=== PATIENT | female | born 1965 | race African-American/Black ===

== ENCOUNTER 2018-02-06 15:54 | Inpatient (IN) | payer OTHER ==
[~2018-02-06] VITALS: Ht 167.6 cm; Wt 75.0 kg
--- NOTE | ~2018-02-06 | P ---
[facility] [place] [address] PROCEDURE REPORT Name: JAMA TERRELL Room #: 363-P [facility] IN ..#: [id number] Admission: 02/06/18 Attend Phys: Efrain Ronquillo MD Discharge: 02/21/18 Date of : 61 Report #: [id number] THIS REPORT FOR: //name// CC: Solis Ronquillo DATE OF SERVICE: 02/20/2018 BRIEF HISTORY: The patient is a 52-year-old woman with chronic kidney disease and multiple medical problems, who has had gastrointestinal bleeding. Bleeding scan suggested a possible source from the upper GI tract. In addition, she has recurrent solid food dysphagia. PREOPERATIVE DIAGNOSIS: Gastrointestinal bleeding and solid food dysphagia. POSTOPERATIVE DIAGNOSES: 1. Benign appearing, nonbleeding gastric ulcer associated with gastrostomy bumper. 2. Polypoid lesion of pylorus. 3. Solid food dysphagia. MEDICATIONS: Deep sedation with propofol per anesthesia. MEDICATIONS: MAC. SPECIMEN: Biopsies of polypoid lesion, pylorus. ESTIMATED BLOOD LOSS: 3 mL. PROCEDURE: EGD with biopsy and Pulliam dilation. FINDINGS: Prior to sedation, procedure of upper endoscopy was reviewed with the patient as well as potential risks and its complications. She indicates she understands and desires to proceed. DESCRIPTION OF PROCEDURE: The patient was in her ICU bed, was brought to the GI procedure room. She was in the supine position with her head and chest raised about 20 degrees. Subsequently, the Fuji video endoscope was inserted in the cervical esophagus under direct vision without difficulty. Examination of this organ through its entire length revealed normal esophageal mucosa. There is no evidence of blood or bleeding within the esophageal lumen. Squamocolumnar junction was unremarkable. She has a history of reflux disease and is on Prevacid, but there is no endoscopic evidence of esophagitis, nor was there evidence of Donis mucosa or hiatus hernia. She has had dysphagia. However, a stricture or mass was not seen in the esophagus. Scope was advanced in the [facility] [address] [place] [address] PROCEDURE REPORT Name: JAMA TERRELL Room #: 363-P [facility].#: [id number] Admission: 02/06/18 Attend Phys: Efrain Ronquillo MD Discharge: 02/21/18 Date of : 61 Report #: [id number] stomach, which was examined on end view as well as retroflexed views. There was some erythema in the antrum, but no ulcers or erosions were seen. No bleeding lesions were seen. Upon retroflexion, no abnormalities were seen. In the distal body of the stomach along the anterior wall, the indwelling gastrostomy tube was seen. The tube was pushed into the gastric lumen and so we could visualize under the internal retention disk and indeed she was found to have a small whitish nonbleeding ulcer without exposed vessel under the bumper. This is the potential source of bleeding. The pylorus was inspected and on the duodenal side, there was a sessile polypoid lesion about 5-7 mm. It was very difficult to see because of its location. It had smooth and benign appearance. It did not appear to ulcerated, but was difficult to see this entire lesion. Biopsies were obtained. The scope was advanced through the duodenal bulb, duodenal sweep and down about the third and fourth portion. The mucosa was unremarkable. No bleeding lesions or vascular ectasias were seen. At that point, the scope was slowly withdrawn and careful circumferential views confirmed the above findings. The patient tolerated the procedure well. DISPOSITION: The patient with GI bleeding and potential bleeding from her upper GI tract. She did have a small gastric ulcer under the retention disk of the gastrostomy tube. This may have been the potential source of bleeding. We will follow up on biopsies. Continue PPI at this point in time. We will advance diet. Based on what I see today, I think the likelihood of bleeding from this ulcer is low. <ELECTRONICALLY SIGNED> By: Ivan Pool MD 02/21/18 1605 1240 0412 Ivan Pool MD /nt
--- NOTE | ~2018-02-06 | HC ---
[facility] [address] CONSULTATION Name: JAMA TERRELL Room #: 243-P ADM IN M.R.#: [id number] Admission: 02/06/18 Attend Phys: Efrain Ronquillo MD Discharge: Date of : 61 Report #: [id number] THIS REPORT FOR: //name// CC: Solis Ronquillo REASON FOR CONSULTATION: I was asked to evaluate concerning sepsis. HISTORY OF PRESENT ILLNESS: The patient is a 52-year-old who transfers from [place] after her first dialysis run. She became hypotensive and unresponsive. EMS was called. She was found to have ____, but was minimally arousable. She had hypotension and was admitted then by EMS to the [facility] HERE <ELECTRONICALLY SIGNED> By: Raad Andrew MD 02/08/18 1005 1606 2338 Raad Andrew MD /nt
--- NOTE | ~2018-02-06 | HC ---
[facility] [place] [address] CONSULTATION Name: JAMA TERRELL Room #: 240-P [facility] IN .R.#: [id number] Admission: 02/06/18 Attend Phys: Efrain Ronquillo MD Discharge: Date of : 61 Report #: [id number] THIS REPORT FOR: //name// CC: Solis Ronquillo DATE OF SERVICE: 02/20/2018 PALLIATIVE CARE CONSULTATION REQUESTING PHYSICIAN: Dr. Hsu. CHIEF COMPLAINT: Severe sepsis. HISTORY OF PRESENT ILLNESS: The patient is a 52-year-old female with multiple medical conditions of concern at this time including end-stage renal disease, recently has started dialysis approximately 1 month ago per daughter. The patient has had several dialysis sessions; however, had had difficulty with many of them. She had hypotension, most recently was diagnosed with a Staph epidermidis sepsis. She has also had altered mental status apparently since October at which time she was seen at [facility]. She had reportedly received TPA at this time, but cannot see that she had actually had strokes, although it says that she has a past history of strokes in previous records. Daughter does not recall whether that event was a stroke itself. The patient has had poor attention level since this time. Since her last discharge from [facility], she was sent to [place] for approximately 2 days prior to readmission. She has had multiple admissions for hypoxic respiratory failure. She has a history of sarcoidosis. Additionally, she has had a history of what appears to be diastolic heart failure, restrictive disease, possibly also due to sarcoidosis. Also, dysphagia and has a PEG tube. The patient has also had significant anemia recurrently and required transfusions. In addition, she had EGD showing an ulceration underneath the inside of the PEG tube as well as a polyp in the stomach, which has been biopsied. The patient at this current point in time, appears extremely confused about the reason for her being here. She cannot tell me the name of the facility or the date or time. She denies particular pain at this point in time, denies shortness of breath, but does report that she is concerned about the congestion that she has in her chest. PAST MEDICAL HISTORY: History of SVT, peptic ulcer disease, anemia, end-stage renal disease, atrial fibrillation, chronic kidney disease, congestive heart failure, dysphagia, sarcoidosis, possible seizure disorder, multiple CVAs, status post TPA in October 2017. PAST SURGICAL HISTORY: PEG tube placement. She has a pacemaker as well. [facility] [address] [place] [address] CONSULTATION Name: JAMA TERRELL Room #: 240-P [facility] IN [facility].#: [id number] Admission: 02/06/18 Attend Phys: Efrain Ronquillo MD Discharge: Date of : 61 Report #: [id number] MEDICATIONS: Prior to arrival at [facility], the patient was on albuterol, allopurinol, vitamin C, aspirin, Lipitor, ferrous sulfate, fluocinonide, folic acid, Imdur, Prevacid, Reglan, metoprolol, propafenone, allopurinol. FAMILY HISTORY: Noncontributory. SOCIAL HISTORY: Daughter apparently has drawn up Txt[employer] paperwork, but this has not been signed by the patient. The patient also has a younger son whom she was living with previously. REVIEW OF SYSTEMS: Unable to obtain the majority of review of systems. She denies pain in general. Does report chest congestion, but difficult to obtain other review of systems at this time. PHYSICAL EXAMINATION: VITAL SIGNS: Includes temperature 37.2, pulse 105, respirations 21, blood pressure 145/92, 100% on room air. GENERAL: The patient is not alert. Her attention level is extremely poor. She was able to answer some questions, but very minimal. She is in no acute distress at this point in time. RESPIRATORY: Diffuse expiratory rales noted throughout lung cortes and diffuse rhonchi noted throughout lung cortes. CARDIOVASCULAR: She does have edema. Good dorsalis pedis pulses in bilateral legs. She does have good pulses radially bilaterally. HEART: Regular rate and rhythm currently. ABDOMEN: Soft, not particularly distended or tender to palpation. LABORATORY DATA: Include hemoglobin 7.6, white blood cells 17.1, platelets 127, creatinine 1.5. ASSESSMENT AND PLAN: 1. Acute on chronic hypoxic respiratory failure. Appreciate pulmonary recommendations, may be due to exacerbation of her sarcoidosis or pulmonary fibrosis. 2. Severe sepsis. Did discuss in light of recurrence with the patient's daughter, I spent approximately 40 minutes in discussion of advanced care planning. I explained the difference between outpatient hospice, inpatient hospice, [place] [facility] [place], long-term care, discussed home health as well, discussed extensively code status and the risks and benefits of ventilation or artificial ventilation as well as CPR. Did discuss plan of care going forward. The patient's daughter would like to pursue admission to [place]. She is considering the possibility of hospice in the future. Did discuss what that would entail including stopping dialysis. The patient's daughter is considering this at this time; however, she would like to start with [place] and possibility of [place] [facility] [place] versus long-term care nursing at discharge and [facility] [address] [place] [address] CONSULTATION Name: JAMA TERRELL Room #: 240-P [facility] IN [facility]#: [id number] Admission: 02/06/18 Attend Phys: Efrain Ronquillo MD Discharge: Date of : 61 Report #: [id number] that she may make a decision going forward. She was unable to make a decision with regards to code status at this time stating that she wanted everything done at this current point in time. 3. Sarcoidosis, possibly with exacerbation. Appreciate pulmonology recommendations and steroid dosage currently. 4. Delirium, appears to be severe. Unknown origin, present since October, possibly due to cerebrovascular accident. Unable to perform MRI due to pacemaker previously. It is also possible that this is delirium due to metabolic, infectious or drug origin; however, it carries a poor prognosis overall in addition to the other diagnoses, which was discussed with daughter at this time. 5. I will continue to follow with this case. I do not know if we will come to a decision during this hospitalization, may pursue further at [place] by primary doctor over there. Thank you very much for the consultation. By: 1534 00 Norbert Maldonado DO /nt
--- NOTE | ~2018-02-06 | EKG ---
[place] [address] [address] [facility] [place] [address] ELECTROCARDIOGRAM REPORT Name: JAMA TERRELL Room #: 202-P [facility] IN ..#: [id number] Admission: 02/06/18 Attend Phys: Efrain Ronquillo MD Discharge: Date of : 61 Report #: [id number] THIS REPORT FOR: //name// [facility] ED Test Date: 2018-02-06 Test Time: 16:18:14 Pat Name: JAMA TERRELL Department: Room: Gender: F Drafter Patent: REYNA : 1965 Requested By: Christina Stone Order Number: [id number] MD: Enmanuel Farmer Measurements Intervals Clarence Rate: 113 P: 0 IA: 58 QRS: 55 QRSD: 93 T: 41 QT: 408 QTc: 560 Interpretive Statements Sinus tachycardia Borderline ST depression, diffuse leads Prolonged QT interval Baseline wander in lead(s) V5 No previous ECG available for comparison Electronically Signed On 02-07-2018 8:54:01 CDT by Enmanuel Farmer [email or web address] <ELECTRONICALLY SIGNED> By: Enmanuel Farmer MD, [facility] 02/07/18 0854 1618 17 Enmanuel Farmer MD, [facility] /EPI
--- NOTE | ~2018-02-06 | 2DMMODE ---
[facility] [address] [place] [address] 2 D/M-MODE ECHOCARDIOGRAM Name: JAMA TERRELL Room #: 243-P [facility] IN ..#: [id number] Admission: 02/06/18 Attend Phys: Efrain Ronquillo MD Discharge: Date of : 61 Date of Service: 02/08/18 1025 Report #: [id number] THIS REPORT FOR: //name// APPROVED REPORT Study performed: 02/08/2018 08:13:20 EXAM: Comprehensive 2D, Doppler, and color-flow Echocardiogram Patient Location: Bedside Room #: 243 Status: routine BSA: 1.88 HR: 103 bpm BP: 105/69 mmHg Rhythm: NSR Other Information Study Quality: Adequate Technically limited study due to body habitus. Indications Atrial Fibrillation Syncope Cardiomyopathy SVT Hx: Pacemaker 2D Dimensions RVDd: 39.52 mm LVEF(%): 62.52 (>50%) IVSd: 7.49 (7-11mm) LVOT Diam: 18.27 (18-24mm) LVDd: 39.29 mm PWd: 8.13 (7-11mm) LVDs: 26.22 (25-40mm) Aortic Root: 25.61 mm IVC: 24.00 mm Altman's LVEF: 62.52 % Volumes Left Atrial Volume (Systole) Single Plane 4CH: 72.00 mL Single Plane 2CH: 35.90 mL LA ESV Index: 29.00 mL/m2 Aortic Valve AoV Peak Martínez.: 1.74 m/s AO Peak Gr.: 12.13 mmHg LVOT Max P.47 mmHg LVOT Max V: 1.27 m/s ANANYA Vmax: 1.91 cm2 [facility] [place] [address] 2 D/M-MODE ECHOCARDIOGRAM Name: JAMA TERRELL Deidre Room #: 243-P [facility] IN [facility]#: [id number] Admission: 02/06/18 Attend Phys: Efrain Ronquillo MD Discharge: Date of : 61 Date of Service: 02/08/18 1025 Report #: [id number] Pulmonary Valve PV Peak Martínez.: 1.78 m/s PV Peak Gr.: 10.44 mmHg Tricuspid Valve TR Peak Martínez.: 3.85 m/s RAP Estimate: 10.00 mmHg TR Peak Gr.: 59.42 mmHg PA Pressure: 69.00 mmHg Left Ventricle The left ventricle is normal size. There is normal left ventricular wall thickness. The left ventricular systolic function is normal. LVEF is 50 55% This study is not technically sufficient to allow evaluation of the LV diastolic function. Right Ventricle The right ventricle is normal size. The right ventricular systolic function is normal. Pacemaker lead is present in the right ventricle. Atria The left atrium size is normal. Right atrium is borderline dilated.Pacemaker lead is present in the right atrium. Question vegetation vs. calcification on pacemaker leads. Aortic Valve The Aortic valve is sclerotic. No aortic regurgitation is present. There is no aortic valvular stenosis. Mitral Valve There is mitral annular calcification. Moderate mitral regurgitation. No evidence of mitral valve stenosis. Tricuspid Valve The tricuspid valve is normal in structure. Wide open, severe tricuspid regurgitation. Estimated PAP 69 mmHg. Pulmonic Valve Pulmonic valve is grossly normal in structure. Mild to moderate pulmonic regurgitation. Great Vessels The aortic root is normal in size. IVC is dilated and collapses >50% with inspiration. Pericardium There is no pericardial effusion. [facility] [address] [place] [address] 2 D/M-MODE ECHOCARDIOGRAM Name: JAMA TERRELL Deidre Room #: 243-P [facility] IN ..#: [id number] Admission: 02/06/18 Attend Phys: Efrain Ronquillo MD Discharge: Date of : 61 Date of Service: 02/08/18 1025 Report #: [id number] <Conclusion> The left ventricle is normal size. LVEF is 50 55% This study is not technically sufficient to allow evaluation of the LV diastolic function. The right ventricle is normal size. Right atrium is borderline dilated.Pacemaker lead is present in the right atrium. Question vegetation vs. calcification on pacemaker leads. The Aortic valve is sclerotic. There is no aortic valvular stenosis. Moderate mitral regurgitation. Wide open, severe tricuspid regurgitation. Estimated PAP 69 mmHg. Mild to moderate pulmonic regurgitation. The aortic root is normal in size. IVC is dilated and collapses >50% with inspiration. There is no pericardial effusion. <ELECTRONICALLY SIGNED> By: Kelvin Patel MD, [facility] 02/08/18 1025 1025 1025 Kelvin Patel MD, FAC /INF
--- NOTE | ~2018-02-06 | HC ---
[facility] [address] CONSULTATION Name: JAMA TERRELL Room #: 243-P [facility] IN M.R.#: [id number] Admission: 02/06/18 Attend Phys: Efrain Ronquillo MD Discharge: Date of : 61 Report #: [id number] THIS REPORT FOR: //name// CC: Solis Ronquillo ADDENDUM TO PREVIOUS CONSULT THAT WAS CUT OFF. REASON FOR CONSULTATION: Evaluate regarding sepsis. HISTORY OF PRESENT ILLNESS: The patient is a 52-year-old, recently diagnosed with end-stage renal disease, on dialysis. Transferred from [facility] with hypotension and bradycardia. She was found to have a hemoglobin down to 6.4. She is having diarrhea with bright red blood per rectum. Developed further respiratory compromise and was transferred from CCU over to the ICU. She has now developed a Gram-positive bacteremia. There was suspicion of a central venous catheter infection. She also has a permanent pacemaker. She also has a diagnosis of sarcoidosis, but is not on any current corticosteroids for this. The patient was unable to give me any further details of her history. PAST MEDICAL HISTORY: End-stage renal disease, recently diagnosed at [facility]. Dysphagia, atrial fibrillation, anemia, hypertension, peptic ulcer disease, gastroesophageal reflux, congestive heart failure, hypothyroidism and sarcoidosis. ALLERGIES: CEFEPIME. Does tolerate penicillins. MEDICATIONS: As noted on her MAR, now on vancomycin and Zosyn. FAMILY HISTORY AND SOCIAL HISTORY: Otherwise not available. REVIEW OF SYSTEMS: As noted above with no nausea or vomiting. She has a right IJ dialysis catheter. Left chest permanent pacemaker. She has been hypoxic with loose cough, minimal sputum production. Does urinate some. She has indwelling Garza catheter. PHYSICAL EXAMINATION: VITAL SIGNS: She is currently afebrile, blood pressure is 104/90, pulse 105. She is now on ultrafiltration through the dialysis catheter. GENERAL: She was awake, but a poor historian. Mild abdominal discomfort. HEENT: Unremarkable. Nasal cannula oxygen at 4 liters. LUNGS: Coarse bilaterally. No consolidation. HEART: Regular, without appreciable murmur. ABDOMEN: Mild distention, diffusely tender, no hepatosplenomegaly or mass identified. Perianal ulcerations with minimal drainage. EXTREMITIES: Unremarkable. [address] [address] CONSULTATION Name: JAMA TERRELL Room #: 243-P [facility] IN .R.#: [id number] Admission: 02/06/18 Attend Phys: Efrain Ronquillo MD Discharge: Date of : 61 Report #: [id number] LABORATORY STUDIES: Sodium 135, potassium 4, bicarbonate 23, creatinine 1.9, alkaline phosphatase 453, AST 34, bilirubin 1.5, ALT 43, albumin of 1.5. Troponin negative. Lactate initially 4.3, now 1.2. Hemoglobin 7.5, WBC 6.2, platelet count 122,000. Differential, 87% segs, 8% lymphs, TSH 1.9. Folate greater than 40. Vitamin B12 of 2772. Procalcitonin greater than 200. Urinalysis, many rbc's, rare wbc's, few bacteria. Blood cultures, gram-positive cocci, 2/2 cultures from 02/06/2018. Stool cultures negative to date. C. difficile PCR is pending. Urine culture is pending. Sputum culture not collected. Chest x-ray, bilateral pulmonary infiltrates. CT of the abdomen, residual contrast in the kidneys and bladder from her previous CTA. Atelectasis versus pneumonitis involving the medial lower lung regions bilaterally. No other acute intra-abdominal processes identified. CT scan of the chest showed no evidence of pulmonary emboli. She had mildly prominent mediastinal nodes with extensive bilateral perihilar upper and lower lobe airspace infiltrate, edema versus pneumonia. IMPRESSION: A 52-year-old with complicated situation with sepsis, transient shock, respiratory compromise, bilateral infiltrates, renal failure, on dialysis; Gram-positive cocci bacteremia and bloody diarrhea. I am suspecting the bacteremia is related to her central venous catheter. Echocardiogram was done at the bedside as I was evaluating the patient. It appears that she does have a vegetation on the right atrial lead of her permanent pacemaker. RECOMMENDATIONS: We will continue with broad antibiotic coverage to cover her Gram-positive cocci bacteremia along with pulmonary infiltrates and her diarrhea. I would like to repeat her blood cultures. Change out her lines and remove the right IJ temporary dialysis catheter. I have discussed with Cardiovascular Medicine regarding her permanent pacemaker. This will be interrogated today and then we will decide on our treatment options regarding removal of the lead. She will be on stress dose steroids. Further decision regarding her sarcoidosis will be entertained. Await stool cultures and C. diff by PCR. If continued bloody stool, we will need endoscopy. <ELECTRONICALLY SIGNED> By: Raad Andrew MD 02/09/18 1201 1003 1759 Raad Andrew MD /nt
--- NOTE | ~2018-02-06 | HC ---
[facility] [place] [address] CONSULTATION Name: TERRELLJAMA Room #: 240-P [facility] IN .R.#: [id number] Admission: 02/06/18 Attend Phys: Efrain Ronquillo MD Discharge: Date of : 61 Report #: [id number] THIS REPORT FOR: //name// CC: Solis Ronquillo DATE OF SERVICE: 02/07/2018 REASON FOR CONSULTATION: History of chronic renal failure. HISTORY OF PRESENT ILLNESS: A 52-year-old patient presented to our hospital after a dialysis treatment at [facility] where she had been a patient for 4 days. Apparently, she is a relatively new dialysis start, developed hypotension and bradycardia post-dialysis, was transferred to our ER, given some fluid resuscitation, and admitted to the hospital. The patient is unable to give any meaningful history. She is arousable, but I cannot get further communication from her. 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 Apparently, the patient's attending physician is Dr. Juárez and we are trying to call him for further information. PAST MEDICAL HISTORY: Again, little is known, she apparently has renal failure, some sort of encephalopathic type of disease, history of heart failure, and sarcoidosis. MEDICATIONS: We do have a medication list from [facility] and this includes albuterol inhalers, allopurinol 100 mg per her PEG tube, ascorbic acid 500 mg, aspirin 81 mg, atorvastatin 40 mg, iron 300 mg, folic acid 1 a day, isosorbide dinitrate 10 mg 3 times a day, lansoprazole 30 mg daily, metoclopramide solution 5 mL before meals and bedtime, metoprolol tartrate 12.5 mg per tube twice a day, nystatin powder topical application, Shakira-Ely 1 daily, and propafenone 150 mg 3 times a day. FAMILY HISTORY: Unknown. SOCIAL HISTORY: Otherwise unknown. REVIEW OF SYSTEMS: Cannot be taken due to her mental status. PHYSICAL EXAMINATION: GENERAL: This is an ill-appearing patient, moving about without purpose at times, she is arousable, she has no purposeful movements. [facility] [address] [place] [address] CONSULTATION Name: JAMA TERRELL Room #: 240-P [facility] IN .R.#: [id number] Admission: 02/06/18 Attend Phys: Efrain Ronquillo MD Discharge: Date of : 61 Report #: [id number] SKIN: Relatively unremarkable, although her posterior is not examined at the current time. SKELETAL: Shows her to be obese and all 4 extremities intact. HEENT: Extraocular movements appear to be full. No scleral icterus. Hearing and vision difficult to determine. NECK: Supple. CHEST: Very coarse with rhonchi and some degree of noisy respirations. HEART: Regular, distant. ABDOMEN: Quiet and is quite tender to palpation with a little bit of guarding. EXTREMITIES: Show 1+ dependent edema. NEUROLOGIC: Again, not really communicative or answering questions. She opens her eyes and all 4 extremities seem to move. LABORATORY DATA: The pO2 only 47 on 2 liters nasal cannula. Hemoglobin is 6.4, white count 4.3. No manual differential was performed. Sodium 139, potassium 3.6, chloride 104, bicarbonate 25, BUN is 22, creatinine only 1.3. No phosphorus was measured. Transaminases are not elevated. Alk phos is elevated. Albumin is only 1.3. Chest x-ray shows diffuse infiltrates. ASSESSMENT: 1. Chronic kidney disease. She has a temporary dialysis catheter in and that is all she has. She apparently was given some IV fluids in the emergency room, the total amount of which are really cannot determine, at one point at least 3 liters were ordered, I believe she got at least 1 liter. Blood pressure is stabilized at the current time, but she does appear to be critically ill, possibly septic, possibly with a line infection. She has a temporary dialysis line in only. 2. Altered mental status, I am not sure how permanent this is, I cannot really contact anybody at this time, we will try to with Dr. Juárez. 3. Pulmonary infiltrates could be from sepsis, could be volume overload, I have no real information better heart function, she does carry a diagnosis of restrictive cardiomyopathy and sarcoidosis. 4. Sarcoidosis. I do not see steroids on her list of medications. <ELECTRONICALLY SIGNED> By: Kelvin Velásquez MD 02/20/18 1055 0809 1304 Kelvin Velásquez MD /nt
--- NOTE | ~2018-02-06 | HC ---
[facility] [place] [address] CONSULTATION Name: JAMA TERRELL Room #: 243-P [facility] IN ..#: [id number] Admission: 02/06/18 Attend Phys: Efrain Ronquillo MD Discharge: Date of : 61 Report #: [id number] THIS REPORT FOR: //name// CC: Solis Ronquillo DATE OF SERVICE: 02/07/2018 REFERRAL PHYSICIAN: Dr. Brandee Stone from the Emergency Department. REASON FOR REFERRAL: Acute hypoxic respiratory failure. HISTORY OF PRESENT ILLNESS: The patient is a 52-year-old female who was transferred to Emergency Room after being found to have lost consciousness. She was brought to the Emergency Room. She was found to be hypoxic. A pulmonary consultation was requested. The patient has extensive medical history including end-stage renal disease, sarcoidosis. She states that she is from [place]. She was hospitalized recently at [facility]. She was subsequently transferred to [facility] for ongoing care. The history is somewhat sketchy, but according to the records, she was undergoing dialysis that day. She did well. Shortly after, she was found to be unresponsive. A code blue was called. According to EMS, she did not receive CPR. She was initially found to be hypotensive, bradycardic. She did have spontaneous respiration. She was then brought to the Emergency Room. In the ER, systolic blood pressure was around 769 mmHg. She was somewhat somnolent. She was hypoxic. She was placed on O2. Chest x-ray was said to have perihilar infiltrates. To my review, it shows patchy bilateral infiltrates. For hypotension, she was given IV fluids with some improvement in blood pressure. She was felt to have pneumonia. She was admitted initially to the Critical Care Unit and subsequently transferred to ICU. At present, she is awake. She appears somewhat semi-somnolent. She appears weak. She denies any chest pain. She confirms a history of sarcoidosis, though she did not say that she was on chronic steroids. PAST MEDICAL HISTORY: According to the records include end-stage renal disease, encephalopathy, dysphagia, paroxysmal atrial fibrillation, chronic anemia, [facility] [address] [place] [address] CONSULTATION Name: NIDHIJAMA A Room #: 243-P [facility] IN ..#: [id number] Admission: 02/06/18 Attend Phys: Efrain Ronquillo MD Discharge: Date of : 61 Report #: [id number] hypertension, gastroesophageal reflux disease, peptic ulcer disease, history of osteoarthritis, hyperlipidemia, chronic combined heart failure, chronic respiratory failure on O2, restrictive cardiomyopathy, hypothyroidism, sarcoidosis. ALLERGIES: CEFEPIME, REACTIONS UNSPECIFIED. MEDICATIONS: List reviewed. This include nebulized albuterol, allopurinol, vitamin C, aspirin, Lipitor, iron sulfate, folic acid, DuoNeb, Isordil, lansoprazole, Reglan, Toprol, Nitrostat, MiraLax, propafenone, folic acid. PAST SURGICAL HISTORY: Unknown at this time. FAMILY HISTORY: Unknown. SOCIAL HISTORY: The patient apparently has never smoked, does not drink alcohol. She is from [place]. REVIEW OF SYSTEMS: Somewhat limited as the patient is not able to answer questions adequately at this time. PHYSICAL EXAMINATION: GENERAL: She is awake, appears somewhat weak and somnolent. VITAL SIGNS: Temperature is 97 degrees Fahrenheit, pulse is 14, respiratory rate is 20, blood pressure 120/50 mmHg, saturation 98%. HEENT: Unremarkable. NECK: Supple, without any lymphadenopathy or thyromegaly. CHEST: Breath sounds are fair with few scattered crackles. No obvious rales or wheezes heard anteriorly. CARDIOVASCULAR: Heart sounds are distant. Normal S1, S2. No murmurs or gallop. There is no JVD, no carotid bruit. Pulses are 2+/4+ bilaterally. BREASTS: Exam deferred. ABDOMEN: Mildly obese, soft, nontender, no organomegaly or masses felt. GENITOURINARY: Deferred. RECTAL: Deferred. EXTREMITIES: No cyanosis, clubbing or edema. LABORATORY DATA: Chest x-ray, CT chest angiogram reviewed. Chest x-ray shows patchy bilateral interstitial infiltrate, perihilar infiltrates noted in the left lung field, patchy linear infiltrates seen in the right upper lobe, right lower lobe along with cardiomegaly. CT chest angiogram shows no evidence of pulmonary embolus. Again, showing patchy bilateral infiltrates, bilateral perihilar enlargements, some nodular densities seen in the right lower lobe. Diffuse calcifications are noted in bilateral hilum along with mediastinal area. DATA: Sodium 138, potassium 2.6, chloride 102, CO2 of 25, BUN is 14, creatinine [address] [address] CONSULTATION Name: JAMA TERRELL Room #: 243-P ADM IN M.R.#: [id number] Admission: 02/06/18 Attend Phys: Efrain Ronquillo MD Discharge: Date of : 61 Report #: [id number] is 1.3. Liver function enzymes are notable for elevated alkaline phosphatase, otherwise unremarkable. WBC 5200, hemoglobin 7.9. No evidence of bandemia. Arterial blood gas revealed pH 7.38, pCO2 of 34, pO2 of 47 on 2 L of O2. Follow up hemoglobin this morning is 6.3, albumin is 1.3. IMPRESSION: 1. Transient hypotension, bradycardia in this 52-year-old female. This occurred apparently following hemodialysis. Suspect secondary to hypovolemia. In reviewing the records, patient also was shown to be febrile with temperature of 102 degrees Fahrenheit. Cannot rule out infectious processes including severe sepsis. Note that, hemoglobin is now low, is now gradually trending downward to now 6. According to the patient, she has a history of peptic ulcer disease along with GI bleed. Cannot rule out recurrent bleed. 2. Acute on chronic hypoxic respiratory failure. The patient appeared to have history of sarcoidosis. Specifics of the sarcoidosis is unknown at this time. Suspect that she has had it for some time. Radiographic changes are consistent with sarcoidosis. It does not appear that the patient has pulmonary edema as previously thought. With abnormal chest x-ray, cannot rule out pneumonia. 3. Sarcoidosis as mentioned above. We will request records for further review. It appears the patient is not on chronic steroids. I do not think she has an acute exacerbation of sarcoidosis at this time. 4. Hypotension. As mentioned above likely due to volume depletion, anemia. Possible severe sepsis. 5. Febrile illness, possible infectious process. As mentioned above, cannot rule out pneumonia. We will need to consider nosocomial infections. Other considerations include urinary tract. 6. History of chronic anemia, now with a downward trend. As mentioned above, rule out gastrointestinal bleed. 7. History of chronic kidney disease, apparent requirement of hemodialysis according to the history. Creatinine is 1.3. She makes some urine. Renal has been consulted. 8. Hypoglycemia. May be related to severe sepsis. 9. Hyponatremia, hypokalemia due to chronic kidney disease. 10. Recent history of encephalopathy, metabolic. 11. Paroxysmal atrial fibrillation. 12. Gastroesophageal reflux disease. 13. History of peptic ulcer disease with gastrointestinal bleed. 14. Hyperlipidemia. 15. Combined chronic heart failure. 16. Restrictive cardiomyopathy. 17. Hypothyroidism. 18. Generalized debility due to severe multicomorbid conditions. 19. Protein-calorie malnutrition, severe. RECOMMENDATION: Agree with broad spectrum antibiotics, O2 to keep saturation [facility] [address] [place] [address] CONSULTATION Name: JAMA TERRELL Room #: [facility] IN M.R.#: [id number] Admission: 02/06/18 Attend Phys: Efrain Ronquillo MD Discharge: Date of : 61 Report #: [id number] 90%. DVT and GI prophylaxis will be addressed. SCDs will be used instead of heparin product given anemia. In terms of volume overload, my review of the chest x-ray does not suggest pulmonary edema, but rather chronic infiltrates due to sarcoidosis. Plan is for CRRT is noted. If patient becomes hypotensive, would consider not taking too much fluid off at this time. I have requested records from the other facilities for review. I do not think the patient had been on chronic steroids for sarcoidosis, but will need to monitor hypotension. She may be adrenally insufficient. Hydrocortisone will be recommended if hypotension continues to be a problem or worsens. Thank you for this consultation. <ELECTRONICALLY SIGNED> By: Sathish Deluca MD 02/09/18 1152 1250 [id number] Sathish Deluca MD /nt
[2018-02-06 16:00] VITALS: BP 112/45
[2018-02-06 16:44] LABS: ABSOLUTE NEUTROPHILS 4.5 thou/uL (1.4-8.2); BASOPHILS 0.2 % (0.0-2.0); EOSINOPHILS 0.2 % (0.0-3.0); HEMOGLOBIN 7.9 gm/dL (12.0-15.0); LYMPHOCYTES 7.9 % (24.0-44.0); MCH 29.1 pg (26.0-34.0); MCHC 32.9 g/dL (28.0-37.0); MCV 88.5 fL (80.0-100.0); MONOCYTES 5.2 % (1.0-8.0); PLATELET COUNT 138 thou/uL (150-400); POLYS 86.5 % (36.0-66.0); RBC 2.71 mil/uL (4.20-5.00); RDW 18.3 % (10.5-14.5); WBC 5.2 thou/uL (4.0-11.0)
[2018-02-06 16:52] LABS: ANION GAP 11 mmol/L (7-16); BUN 14 mg/dL (7-18); CALCIUM 8.5 mg/dL (8.5-10.1); CHLORIDE 102 mmol/L (98-107); CO2 25 mmol/L (21-32); CREATININE 1.3 mg/dL (0.6-1.0); GLUCOSE 109 mg/dL (74-106); SODIUM 138 mmol/L (136-145)
[2018-02-06 16:53] LABS: POTASSIUM 2.6 mmol/L (3.5-5.1)
[2018-02-06 17:00] LABS: BE(vivo) -4.5 mmol/L (-2 to +3); PCO2 34.5 mmHg (35.0-45.0); sO2 82.8 % (92.0-98.0)
[2018-02-06 17:02] LABS: PO2 47.2 mmHg (80.0-100.0)
[2018-02-06 17:02] LABS: TROPONIN-I < 0.04 ng/mL (<0.06)
[2018-02-06 18:15] VITALS: BP 112/45
[2018-02-06 19:33] VITALS: BP 102/61
[2018-02-06] MEDS ORDERED: ALBUTEROL2.5 MG/31 INH (19:50)
[2018-02-06] MEDS ORDERED: VITAMINC500 PER TUBE (19:51)
[2018-02-06] MEDS ORDERED: ASPIR 8181 MG PER TUBE (19:51)
[2018-02-06] MEDS ORDERED: ALLOPURINOL 10100 M1 PER TUBE (19:51)
[2018-02-06] MEDS ORDERED: ATORVASTATIN CA40 MG PO (19:52)
[2018-02-06] MEDS ORDERED: IRON325 PER TUBE (19:53)
[2018-02-06] MEDS ORDERED: DUONEB 2.5-0.5 M3 ML INH (19:55)
[2018-02-06] MEDS ORDERED: [UNRECOGNIZED DRUG - OTHER] TOP (19:55)
[2018-02-06] MEDS ORDERED: FOLIC ACID1 MG PER TUBE (19:55)
[2018-02-06] MEDS ORDERED: ISORDIL10 MG PER TUBE (19:56)
[2018-02-06] MEDS ORDERED: LANSOPRAZOLE30 M2 PER TUBE (19:57)
[2018-02-06 20:19] VITALS: BP 144/99
[2018-02-06] MEDS ORDERED: LOPRESSOR25 PER TUBE (20:29)
[2018-02-06] MEDS ORDERED: NITROGLYCERIN0.4 MG SUBLING (20:29)
[2018-02-06] MEDS ORDERED: METOCLOPRAM5 MG/5 M2 PER TUBE (20:29)
[2018-02-06] MEDS ORDERED: NYAMYC15 GM TOP (20:30)
[2018-02-06] MEDS ORDERED: MIRALAX17 GM PER TUBE (20:31)
[2018-02-06] MEDS ORDERED: AKWA TEARS EYE15 ML OPHTHALMIC (20:31)
[2018-02-06] MEDS ORDERED: PROPAFENONE 15150 MG PER TUBE (20:32)
[2018-02-06] MEDS ORDERED: RENA-VITE TABL0.8 MG PER TUBE (20:32)
[2018-02-06] MEDS ORDERED: ALLOPURINOL 10100 M2 PER TUBE (20:33)
[2018-02-06 21:38] VITALS: BP 109/49
[2018-02-06 23:08] VITALS: BP 96/41
[2018-02-07] VITALS (37 sets, daily range): BP systolic 78–196; BP diastolic 45–185
[2018-02-07 02:16] LABS: WBC 4.3 thou/uL (4.0-11.0)
[2018-02-07 02:18] LABS: MCH 29.4 pg (26.0-34.0); MCHC 33.8 g/dL (28.0-37.0); RBC 2.16 mil/uL (4.20-5.00); RDW 17.6 % (10.5-14.5)
[2018-02-07 02:21] LABS: HEMATOCRIT 18.8 % (37.0-47.0); HEMOGLOBIN 6.4 gm/dL (12.0-15.0)
[2018-02-07 02:37] LABS: ALBUMIN 1.3 g/dL (3.4-5.0); ANION GAP 10 mmol/L (7-16); BUN 22 mg/dL (7-18); CALCIUM 7.6 mg/dL (8.5-10.1); CHLORIDE 104 mmol/L (98-107); CO2 25 mmol/L (21-32); CREATININE 1.3 mg/dL (0.6-1.0); GLUCOSE 74 mg/dL (74-106); SGOT 34 U/L (15-37); SGPT 43 U/L (30-65); SODIUM 139 mmol/L (136-145); TOTAL BILIRUBIN 1.5 mg/dL (<0.1-1.0); TOTAL PROTEIN 5.6 g/dL (6.4-8.2); TROPONIN-I < 0.04 ng/mL (<0.06)
[2018-02-07 02:38] LABS: POTASSIUM 2.7 mmol/L (3.5-5.1)
[2018-02-07 12:02] LABS: HEMOGLOBIN 6.3 gm/dL (12.0-15.0)
[2018-02-07 12:03] LABS: HEMATOCRIT 18.1 % (37.0-47.0)
[2018-02-07 12:22] LABS: CALCIUM 7.7 mg/dL (8.5-10.1); CREATININE 1.7 mg/dL (0.6-1.0); POTASSIUM 3.3 mmol/L (3.5-5.1)
[2018-02-07 13:39] LABS: URINE BILIRUBIN NEGATIVE (Negative); URINE BLOOD 3+ (Negative); URINE CLARITY CLEAR; URINE COLOR YELLOW; URINE GLUCOSE-RANDOM* NEGATIVE (Negative); URINE KETONES NEGATIVE (Negative); URINE NITRITE-REFLEX NEGATIVE (Negative); URINE PROTEIN (DIPSTICK) 1+ (Negative); URINE SPECIFIC GRAVITY <= 1.005 (1.005-1.035); URINE UROBILINOGEN 0.2 E.U./dl (0.2-1.0)
[2018-02-07 13:46] LABS: URINE LEUKOCYTES-REFLEX TRACE (Negative)
[2018-02-07 14:17] LABS: CASTS None Seen /LPF (None Seen); SQUAMOUS 4-10 Moderate /LPF (0-3); URINE RBC >20 Many /HPF (0-2)
[2018-02-07 14:18] LABS: BACTERIA-REFLEX 1-9 Few /HPF (None Seen); CRYSTALS None Seen /LPF (None Seen); URINE WBC-REFLEX 0-5 Rare /HPF (0-5)
[2018-02-07 15:28] LABS: HEMOGLOBIN 7.7 gm/dL (12.0-15.0)
[2018-02-07 21:18] LABS: HEMATOCRIT 21.8 % (37.0-47.0); HEMOGLOBIN 7.5 gm/dL (12.0-15.0)
[2018-02-07 21:28] LABS: MAGNESIUM 1.6 mg/dL (1.8-2.4); POTASSIUM 3.4 mmol/L (3.5-5.1)
[2018-02-08] VITALS (34 sets, daily range): BP systolic 83–134; BP diastolic 45–90
[2018-02-08 03:15] LABS: HEMATOCRIT 22.6 % (37.0-47.0); HEMOGLOBIN 7.7 gm/dL (12.0-15.0)
[2018-02-08 05:23] LABS: ABSOLUTE NEUTROPHILS 5.4 thou/uL (1.4-8.2); BASOPHILS 0.2 % (0.0-2.0); EOSINOPHILS 0.3 % (0.0-3.0); HEMATOCRIT 21.5 % (37.0-47.0); HEMOGLOBIN 7.5 gm/dL (12.0-15.0); LYMPHOCYTES 8.7 % (24.0-44.0); MCH 30.1 pg (26.0-34.0); MCHC 35.1 g/dL (28.0-37.0); MCV 85.9 fL (80.0-100.0); MONOCYTES 3.8 % (1.0-8.0); PLATELET COUNT 122 thou/uL (150-400); WBC 6.2 thou/uL (4.0-11.0)
[2018-02-08 05:33] LABS: ALBUMIN 1.5 g/dL (3.4-5.0); CALCIUM 7.5 mg/dL (8.5-10.1); CREATININE 1.9 mg/dL (0.6-1.0); PHOSPHORUS 1.2 mg/dL (2.5-4.9); POTASSIUM 4.4 mmol/L (3.5-5.1)
[2018-02-08 06:46] LABS: TSH 1.933 uIU/mL (0.358-3.740)
[2018-02-08 07:24] LABS: FOLIC ACID > 40.0 ng/mL (8.6-58.9)
[2018-02-08 10:50] LABS: HEMATOCRIT 22.2 % (37.0-47.0); HEMOGLOBIN 7.8 gm/dL (12.0-15.0)
[2018-02-08 11:09] LABS: HEPATITIS B SURFACE AG Negative (Negative)
[2018-02-08 17:32] LABS: HEMATOCRIT 21.9 % (37.0-47.0); HEMOGLOBIN 7.6 gm/dL (12.0-15.0)
[2018-02-08 22:34] LABS: HEMATOCRIT 21.2 % (37.0-47.0); HEMOGLOBIN 7.4 gm/dL (12.0-15.0)
[2018-02-09] VITALS (26 sets, daily range): BP systolic 94–129; BP diastolic 53–95
[2018-02-09 05:42] LABS: ABSOLUTE NEUTROPHILS 4.9 thou/uL (1.4-8.2); BASOPHILS 0.3 % (0.0-2.0); EOSINOPHILS 0.2 % (0.0-3.0); LYMPHOCYTES 8.1 % (24.0-44.0); MCH 30.1 pg (26.0-34.0); MCHC 34.8 g/dL (28.0-37.0); MCV 86.3 fL (80.0-100.0); MONOCYTES 5.9 % (1.0-8.0); PLATELET COUNT 108 thou/uL (150-400); POLYS 85.5 % (36.0-66.0); RBC 2.32 mil/uL (4.20-5.00); RDW 17.2 % (10.5-14.5); WBC 5.7 thou/uL (4.0-11.0)
[2018-02-09 05:56] LABS: ALBUMIN 1.6 g/dL (3.4-5.0); CALCIUM 7.1 mg/dL (8.5-10.1); CREATININE 2.5 mg/dL (0.6-1.0); POTASSIUM 3.7 mmol/L (3.5-5.1)
[2018-02-09 09:55] LABS: HEMATOCRIT 20.7 % (37.0-47.0); HEMOGLOBIN 7.1 gm/dL (12.0-15.0)
[2018-02-09 10:09] LABS: ALBUMIN 1.8 g/dL (3.4-5.0); CREATININE 2.7 mg/dL (0.6-1.0); DIRECT BILIRUBIN 1.1 mg/dL (<0.1-0.3); POTASSIUM 3.6 mmol/L (3.5-5.1); TOTAL BILIRUBIN 1.3 mg/dL (<0.1-1.0); TOTAL PROTEIN 6.5 g/dL (6.4-8.2)
[2018-02-09 20:07] LABS: HSV 1 DNA Negative (Negative); HSV 2 DNA Positive (Negative)
[2018-02-10] VITALS (41 sets, daily range): BP systolic 84–136; BP diastolic 34–102
[2018-02-10 06:19] LABS: HEMOGLOBIN 6.5 gm/dL (12.0-15.0); MCH 29.6 pg (26.0-34.0); RBC 2.2 mil/uL (4.20-5.00)
[2018-02-10 06:21] LABS: MCHC 33.5 g/dL (28.0-37.0); MCV 88.3 fL (80.0-100.0); RDW 17.6 % (10.5-14.5); WBC 5.7 thou/uL (4.0-11.0)
[2018-02-10 06:30] LABS: HEMATOCRIT 19.4 % (37.0-47.0)
[2018-02-10 06:31] LABS: ALBUMIN 1.8 g/dL (3.4-5.0); CALCIUM 7.2 mg/dL (8.5-10.1); CREATININE 3.1 mg/dL (0.6-1.0); PHOSPHORUS 3.2 mg/dL (2.5-4.9); POTASSIUM 3.5 mmol/L (3.5-5.1)
[2018-02-11] VITALS (24 sets, daily range): BP systolic 91–124; BP diastolic 54–97
[2018-02-11 05:21] LABS: HEMATOCRIT 21.4 % (37.0-47.0); HEMOGLOBIN 7.5 gm/dL (12.0-15.0); MCH 30.3 pg (26.0-34.0); MCHC 35.1 g/dL (28.0-37.0); MCV 86.3 fL (80.0-100.0); RBC 2.48 mil/uL (4.20-5.00); RDW 16.2 % (10.5-14.5); WBC 6.8 thou/uL (4.0-11.0)
[2018-02-11 05:37] LABS: ALBUMIN 1.8 g/dL (3.4-5.0); CALCIUM 7.9 mg/dL (8.5-10.1); PHOSPHORUS 1.3 mg/dL (2.5-4.9)
[2018-02-11 05:38] LABS: CREATININE 1.8 mg/dL (0.6-1.0)
[2018-02-11 05:43] LABS: POTASSIUM 2.5 mmol/L (3.5-5.1)
[2018-02-12] VITALS (16 sets, daily range): BP systolic 97–146; BP diastolic 45–101
[2018-02-12 04:21] LABS: HEMATOCRIT 21.9 % (37.0-47.0); HEMOGLOBIN 7.7 gm/dL (12.0-15.0); MCH 30.2 pg (26.0-34.0); MCHC 34.9 g/dL (28.0-37.0); MCV 86.4 fL (80.0-100.0); RBC 2.54 mil/uL (4.20-5.00); WBC 8.9 thou/uL (4.0-11.0)
[2018-02-12 04:32] LABS: CALCIUM 7.9 mg/dL (8.5-10.1); CREATININE 2.3 mg/dL (0.6-1.0); POTASSIUM 3.7 mmol/L (3.5-5.1)
[2018-02-13 04:10] VITALS: BP 121/69
[2018-02-13 05:38] LABS: HEMATOCRIT 20.6 % (37.0-47.0); MCH 30.2 pg (26.0-34.0); MCHC 33.9 g/dL (28.0-37.0); PLATELET COUNT 136 thou/uL (150-400); RBC 2.31 mil/uL (4.20-5.00); RDW 17.1 % (10.5-14.5); WBC 10.9 thou/uL (4.0-11.0)
[2018-02-13 05:45] LABS: ALBUMIN 1.9 g/dL (3.4-5.0); CALCIUM 7.9 mg/dL (8.5-10.1); CREATININE 2.5 mg/dL (0.6-1.0); PHOSPHORUS 2.7 mg/dL (2.5-4.9)
[2018-02-13 05:54] LABS: POTASSIUM 2.8 mmol/L (3.5-5.1)
[2018-02-13 06:01] LABS: ABSOLUTE NEUTROPHILS 10.6 thou/uL (1.4-8.2); ANISOCYTOSIS 1+; NUCLEATED RBCS 2 /100WBC
[2018-02-13 08:00] VITALS: BP 111/79
[2018-02-13 09:08] LABS: HSV PCR SOURCE PERINEAL
[2018-02-13 17:56] VITALS: BP 123/83
[2018-02-13 19:48] VITALS: BP 127/79
[2018-02-13 23:33] VITALS: BP 119/67
[2018-02-14 02:04] VITALS: BP 110/55
[2018-02-14 04:17] VITALS: BP 90/51
[2018-02-14 05:36] LABS: HEMOGLOBIN 6.5 gm/dL (12.0-15.0); PLATELET COUNT 141 thou/uL (150-400); WBC 11.1 thou/uL (4.0-11.0)
[2018-02-14 05:38] LABS: MCH 30.4 pg (26.0-34.0); MCHC 34.4 g/dL (28.0-37.0); MCV 88.2 fL (80.0-100.0); RBC 2.13 mil/uL (4.20-5.00); RDW 17.4 % (10.5-14.5)
[2018-02-14 05:40] LABS: HEMATOCRIT 18.8 % (37.0-47.0)
[2018-02-14 05:47] LABS: CALCIUM 7.6 mg/dL (8.5-10.1); CREATININE 2.6 mg/dL (0.6-1.0)
[2018-02-14 05:50] LABS: POTASSIUM 2.8 mmol/L (3.5-5.1)
[2018-02-14 07:12] VITALS: BP 126/80
[2018-02-14 07:19] LABS: ABSOLUTE NEUTROPHILS 10.7 thou/uL (1.4-8.2); ANISOCYTOSIS 1+; METAMYELOCYTES 1 %; MICROCYTES 2+; MYELOCYTES 1 %; POLYCHROMASIA 1+
[2018-02-14 07:20] LABS: HYPOCHROMASIA 2+
[2018-02-14 15:17] VITALS: BP 146/82; BP 160/96; BP 171/79
[2018-02-14 15:20] VITALS: BP 139/82
[2018-02-14 20:34] LABS: MAGNESIUM 1.6 mg/dL (1.8-2.4); POTASSIUM 3.4 mmol/L (3.5-5.1)
[2018-02-14 20:37] VITALS: BP 114/89
[2018-02-15] VITALS (32 sets, daily range): BP systolic 96–143; BP diastolic 62–98
[2018-02-15 06:57] LABS: HEMATOCRIT 22.9 % (37.0-47.0); HEMOGLOBIN 7.8 gm/dL (12.0-15.0); MCH 30.1 pg (26.0-34.0); MCV 88.6 fL (80.0-100.0); PLATELET COUNT 188 thou/uL (150-400); RBC 2.59 mil/uL (4.20-5.00); RDW 16.7 % (10.5-14.5); WBC 16.7 thou/uL (4.0-11.0)
[2018-02-15 07:07] LABS: CALCIUM 7.7 mg/dL (8.5-10.1); POTASSIUM 3.9 mmol/L (3.5-5.1)
[2018-02-15 07:11] LABS: CREATININE 1.5 mg/dL (0.6-1.0)
[2018-02-15 08:26] LABS: ABSOLUTE NEUTROPHILS 13.5 thou/uL (1.4-8.2); NUCLEATED RBCS 2 /100WBC; PLATELET ESTIMATE NORMAL
[2018-02-15 13:32] LABS: HEMATOCRIT 16.2 % (37.0-47.0); HEMOGLOBIN 5.5 gm/dL (12.0-15.0)
[2018-02-15 20:39] LABS: HEMATOCRIT 25.6 % (37.0-47.0)
[2018-02-15 20:43] LABS: HEMOGLOBIN 8.8 gm/dL (12.0-15.0)
[2018-02-16] VITALS (81 sets, daily range): BP systolic 103–161; BP diastolic 63–141
[2018-02-16 03:03] LABS: HEMATOCRIT 23.6 % (37.0-47.0); HEMOGLOBIN 8.2 gm/dL (12.0-15.0); MCH 31.7 pg (26.0-34.0); MCHC 34.8 g/dL (28.0-37.0); MCV 91.1 fL (80.0-100.0); PLATELET COUNT 212 thou/uL (150-400); RBC 2.59 mil/uL (4.20-5.00); RDW 15.6 % (10.5-14.5); WBC 20.7 thou/uL (4.0-11.0)
[2018-02-16 03:42] LABS: ABSOLUTE NEUTROPHILS 17.8 thou/uL (1.4-8.2); METAMYELOCYTES 3 %; MYELOCYTES 2 %; NUCLEATED RBCS 1 /100WBC; PROMYELOCYTES 2 %
[2018-02-16 05:46] LABS: ALBUMIN 1.7 g/dL (3.4-5.0); CALCIUM 7.4 mg/dL (8.5-10.1); CREATININE 1.8 mg/dL (0.6-1.0); PHOSPHORUS 1.5 mg/dL (2.5-4.9); POTASSIUM 3.3 mmol/L (3.5-5.1)
[2018-02-16 10:31] LABS: HEMOGLOBIN 6.9 gm/dL (12.0-15.0)
[2018-02-16 10:33] LABS: HEMATOCRIT 20.3 % (37.0-47.0)
[2018-02-16 10:59] LABS: HEMATOCRIT 20.2 % (37.0-47.0)
[2018-02-16 18:19] LABS: HEMATOCRIT 23.4 % (37.0-47.0); HEMOGLOBIN 8.1 gm/dL (12.0-15.0)
[2018-02-17] VITALS (37 sets, daily range): BP systolic 97–141; BP diastolic 57–97
[2018-02-17 05:46] LABS: HEMATOCRIT 23.5 % (37.0-47.0); HEMOGLOBIN 8.1 gm/dL (12.0-15.0); MCHC 34.6 g/dL (28.0-37.0); MCV 89.8 fL (80.0-100.0); PLATELET COUNT 166 thou/uL (150-400); RBC 2.61 mil/uL (4.20-5.00); RDW 16.2 % (10.5-14.5); WBC 18.6 thou/uL (4.0-11.0)
[2018-02-17 05:54] LABS: CALCIUM 7.5 mg/dL (8.5-10.1); CREATININE 1.9 mg/dL (0.6-1.0); POTASSIUM 4.4 mmol/L (3.5-5.1)
[2018-02-17 07:14] LABS: ABSOLUTE NEUTROPHILS 16.9 thou/uL (1.4-8.2); NUCLEATED RBCS 3 /100WBC
[2018-02-17 07:15] LABS: METAMYELOCYTES 4 %; MYELOCYTES 2 %
[2018-02-17 07:17] LABS: ANISOCYTOSIS 1+; POLYCHROMASIA OCCASIONAL
[2018-02-18] VITALS (42 sets, daily range): BP systolic 78–217; BP diastolic 52–193
[2018-02-18 05:41] LABS: HEMATOCRIT 21.9 % (37.0-47.0); HEMOGLOBIN 7.5 gm/dL (12.0-15.0); MCH 31.3 pg (26.0-34.0); MCHC 34.2 g/dL (28.0-37.0); MCV 91.5 fL (80.0-100.0); RBC 2.4 mil/uL (4.20-5.00); WBC 19.7 thou/uL (4.0-11.0)
[2018-02-18 05:51] LABS: ALBUMIN 1.9 g/dL (3.4-5.0); CALCIUM 7.4 mg/dL (8.5-10.1); CREATININE 2.2 mg/dL (0.6-1.0); PHOSPHORUS 3.1 mg/dL (2.5-4.9); POTASSIUM 3.6 mmol/L (3.5-5.1)
[2018-02-19] VITALS (23 sets, daily range): BP systolic 101–144; BP diastolic 59–98
[2018-02-19 04:01] LABS: HEMOGLOBIN 6.5 gm/dL (12.0-15.0)
[2018-02-19 04:17] LABS: ALBUMIN 1.9 g/dL (3.4-5.0); CALCIUM 7.3 mg/dL (8.5-10.1); CREATININE 1.3 mg/dL (0.6-1.0); PHOSPHORUS 1.4 mg/dL (2.5-4.9); POTASSIUM 3.1 mmol/L (3.5-5.1)
[2018-02-19 04:26] LABS: MCV 91.3 fL (80.0-100.0); PLATELET COUNT 164 thou/uL (150-400); RBC 2.09 mil/uL (4.20-5.00); RDW 16.2 % (10.5-14.5)
[2018-02-19 04:29] LABS: HEMATOCRIT 19.1 % (37.0-47.0)
[2018-02-19 05:12] LABS: ABSOLUTE NEUTROPHILS 16.6 thou/uL (1.4-8.2); ANISOCYTOSIS 1+; MACROCYTES 1+; METAMYELOCYTES 1 %; MYELOCYTES 2 %; POLYCHROMASIA OCCASIONAL
[2018-02-19 14:54] LABS: HEMATOCRIT 25.5 % (37.0-47.0); HEMOGLOBIN 8.7 gm/dL (12.0-15.0)
[2018-02-20] VITALS (71 sets, daily range): BP systolic 72–152; BP diastolic 10–130
[2018-02-20 05:43] LABS: HEMATOCRIT 22.3 % (37.0-47.0); HEMOGLOBIN 7.6 gm/dL (12.0-15.0); MCH 30.9 pg (26.0-34.0); MCHC 34.2 g/dL (28.0-37.0); MCV 90.2 fL (80.0-100.0); PLATELET COUNT 127 thou/uL (150-400); RBC 2.47 mil/uL (4.20-5.00); RDW 15.7 % (10.5-14.5); WBC 17.1 thou/uL (4.0-11.0)
[2018-02-20 05:51] LABS: ALBUMIN 1.8 g/dL (3.4-5.0); CALCIUM 6.8 mg/dL (8.5-10.1); CREATININE 1.5 mg/dL (0.6-1.0); PHOSPHORUS 3.2 mg/dL (2.5-4.9); POTASSIUM 3.4 mmol/L (3.5-5.1)
[2018-02-20 08:27] LABS: ABSOLUTE NEUTROPHILS 15.7 thou/uL (1.4-8.2); NUCLEATED RBCS 2 /100WBC; PLATELET ESTIMATE NORMAL
[2018-02-21] VITALS (17 sets, daily range): BP systolic 105–128; BP diastolic 58–73
[2018-02-21 05:05] LABS: HEMATOCRIT 22.9 % (37.0-47.0); HEMOGLOBIN 7.7 gm/dL (12.0-15.0); MCHC 33.8 g/dL (28.0-37.0); MCV 91.8 fL (80.0-100.0); PLATELET COUNT 132 thou/uL (150-400); RDW 15.9 % (10.5-14.5); WBC 17.6 thou/uL (4.0-11.0)
[2018-02-21 05:10] LABS: ALBUMIN 1.8 g/dL (3.4-5.0); CALCIUM 7.2 mg/dL (8.5-10.1); CREATININE 1.2 mg/dL (0.6-1.0); POTASSIUM 3.3 mmol/L (3.5-5.1)
[2018-02-21 08:27] LABS: ABSOLUTE NEUTROPHILS 15.7 thou/uL (1.4-8.2); ANISOCYTOSIS 2+; NUCLEATED RBCS 1 /100WBC; PLATELET ESTIMATE NORMAL; POLYCHROMASIA 1+; TOXIC GRANULATION 1+
[2018-02-21] MEDS ORDERED: VALTREX 500 MG500 MG PO (11:30)
[2018-02-21] MEDS ORDERED: ZOSYN 3.3753.375 GM IV (11:31)
[2018-02-21] MEDS ORDERED: DILTIAZEM HCL90 MG PER TUBE (11:32)
[2018-02-21] MEDS ORDERED: TORSEMIDE20 MG PO (11:33)
[2018-02-21] MEDS ORDERED: SOLU-MEDRO40 MG/1 M1 IV PUSH (11:33)
[2018-02-21] MEDS ORDERED: PROTONIX40 M1 PO (11:44)
[2018-02-21] MEDS ORDERED: CUBICIN500 MG IVPB (11:45)
== END 2018-02-21 15:41 | DRG 871 ==
LOC: ER 15:54 → EDBD 17:52 → ICU 17:52 → 2N 17:52 → EROBS 17:52 → 2N 18:16 → ICU 02-07 09:24 → 4E 02-12 17:40 → ICU 02-15 13:33 → 3W 02-21 11:00
PROVIDERS: Emergency Medicine; Family Medicine; Hospitalist; Internal Medicine Nephrology; Internal Medicine Pulmonary Disease; Nurse Practitioner; Specialist
PROC: 30233N1 Transfusion of Nonautologous Red Blood Cells into Peripheral Vein, Percutaneous Approach (ICD-10-PCS; principal; 2018-02-07)
PROC: 02HV33Z Insertion of Infusion Device into Superior Vena Cava, Percutaneous Approach (ICD-10-PCS; 2018-02-08)
PROC: 0DBL8ZZ Excision of Transverse Colon, Via Natural or Artificial Opening Endoscopic (ICD-10-PCS; 2018-02-16)
PROC: B4151ZZ Fluoroscopy of Inferior Mesenteric Artery using Low Osmolar Contrast (ICD-10-PCS; 2018-02-16)
PROC: B4141ZZ Fluoroscopy of Superior Mesenteric Artery using Low Osmolar Contrast (ICD-10-PCS; 2018-02-16)
PROC: 0DB78ZX Excision of Stomach, Pylorus, Via Natural or Artificial Opening Endoscopic, Diagnostic (ICD-10-PCS; 2018-02-20)
DX: A41.9 Sepsis, unspecified organism (principal); J18.9 Pneumonia, unspecified organism; J96.21 Acute and chronic respiratory failure with hypoxia; G92 Toxic encephalopathy; R65.21 Severe sepsis with septic shock; N18.6 End stage renal disease; N17.9 Acute kidney failure, unspecified; D62 Acute posthemorrhagic anemia; I42.5 Other restrictive cardiomyopathy; K92.2 Gastrointestinal hemorrhage, unspecified; I13.2 Hypertensive heart and chronic kidney disease with heart failure and with stage 5 chronic kidney disease, or end stage renal disease; I47.1 Supraventricular tachycardia; I07.1 Rheumatic tricuspid insufficiency; K25.9 Gastric ulcer, unspecified as acute or chronic, without hemorrhage or perforation; I48.0 Paroxysmal atrial fibrillation; E03.9 Hypothyroidism, unspecified; L89.329 Pressure ulcer of left buttock, unspecified stage; L89.319 Pressure ulcer of right buttock, unspecified stage; E83.39 Other disorders of phosphorus metabolism; E83.42 Hypomagnesemia; K64.8 Other hemorrhoids; I50.9 Heart failure, unspecified; K57.30 Diverticulosis of large intestine without perforation or abscess without bleeding; D12.3 Benign neoplasm of transverse colon; I27.20 Pulmonary hypertension, unspecified; D86.9 Sarcoidosis, unspecified; E87.6 Hypokalemia; I08.1 Rheumatic disorders of both mitral and tricuspid valves; K29.70 Gastritis, unspecified, without bleeding; D69.6 Thrombocytopenia, unspecified; Z87.11 Personal history of peptic ulcer disease; Z93.1 Gastrostomy status; Z79.82 Long term (current) use of aspirin; Z79.899 Other long term (current) drug therapy; Z88.8 Allergy status to other drugs, medicaments and biological substances

== ENCOUNTER 2018-02-21 19:47 | Inpatient (IN) | payer OTHER ==
[~2018-02-21] VITALS: Ht 157.5 cm; Wt 71.8 kg
--- NOTE | ~2018-02-21 | 2DMMODE ---
[facility] [address] [employer] [employer] [address] 2 D/M-MODE ECHOCARDIOGRAM Name: JAMA TERRELL Room #: 363-P [facility] IN ..#: [id number] Admission: 02/21/18 Attend Phys: Francois Whitehead, Discharge: Date of : 61 Date of Service: 02/24/18 1520 Report #: [id number] THIS REPORT FOR: //name// APPROVED REPORT Study performed: 02/24/2018 14:31:35 EXAM: Comprehensive 2D, Doppler, and color-flow Echocardiogram Patient Location: Bedside Room #: 363 Status: routine BSA: 1.78 HR: 95 bpm BP: 136/70 mmHg Other Information Study Quality: Good Indications Pulmonary Hypertension Dyspnea Pacemaker 2D Dimensions IVC: 22.00 mm Tricuspid Valve TR Peak Martínez.: 3.63 m/s TR Peak Gr.: 52.60 mmHg PA Pressure: 68.00 mmHg Left Ventricle The left ventricle is normal size. There is normal left ventricular wall thickness. The left ventricular systolic function is normal. The left ventricular ejection fraction is within the normal range. LVEF is 55-60%. Right Ventricle Right ventricle is dilated. Right ventricle is hypokinetic. Pacemaker lead is present in the right ventricle. Atria Left atrium is dilated. Right atrium is dilated. Pacemaker lead is present in the right atrium. [facility] [address] [place] [address] 2 D/M-MODE ECHOCARDIOGRAM Name: JAMA TERRELL Room #: 363-P ADM IN M.R.#: [id number] Admission: 02/21/18 Attend Phys: Francois Whitehead, Discharge: Date of : 61 Date of Service: 02/24/18 1520 Report #: [id number] Aortic Valve The aortic valve is normal in structure. Mitral Valve The mitral valve is normal in structure. Mild mitral regurgitation. Tricuspid Valve The tricuspid valve is normal in structure. There is moderate to severe tricuspid regurgitation. Estimated PAP 68 mmHg. There is moderate-severe pulmonary hypertension. Pulmonic Valve The pulmonary valve is normal in structure. Great Vessels The aortic root is normal in size. The inferior vena cava is dilated with no inspiratory collapse. Pericardium There is no pericardial effusion. <Conclusion> The left ventricle is normal size. LVEF is 55-60%. Right ventricle is dilated. Right ventricle is hypokinetic. Pacemaker lead is present in the right ventricle. Left atrium is dilated. Right atrium is dilated. Pacemaker lead is present in the right atrium. The aortic valve is normal in structure. The mitral valve is normal in structure. Mild mitral regurgitation. The tricuspid valve is normal in structure. There is moderate to severe tricuspid regurgitation. Estimated PAP 68 mmHg. There is moderate-severe pulmonary hypertension. The pulmonary valve is normal in structure. The inferior vena cava is dilated with no inspiratory collapse. There is no pericardial effusion. <ELECTRONICALLY SIGNED> By: Juan Pitts MD 02/24/18 1520 1520 1520 Juan Pitts MD /INF
--- NOTE | ~2018-02-21 | EKG ---
[address] [address] ELECTROCARDIOGRAM REPORT Name: TERRELLJAMA Room #: 363-P ADM IN M.R.#: [id number] Admission: 02/21/18 Attend Phys: Frnacois Whitehead MD Discharge: Date of : 61 Report #: [id number] THIS REPORT FOR: //name// [facility] Test Date: 2018-02-24 Test Time: 13:31:43 Pat Name: JAMA TERRELL Department: Room: 363 Gender: F Hip Hop Performers: Ray WHITMAN : 1965 Requested By: Enmanuel Farmer Order Number: [id number] MD: Enmanuel Farmer Measurements Intervals [place] Rate: 95 P: 37 TN: 216 QRS: 54 QRSD: 87 T: 17 QT: 346 QTc: 435 Interpretive Statements Sinus rhythm Prolonged TN interval Compared to ECG 02/06/2018 16:18:14 Sinus tachycardia no longer present Electronically Signed On 02-24-2018 15:51:17 CDT by Enmanuel Farmer [email or web address] <ELECTRONICALLY SIGNED> By: Enmanuel Farmer MD, [facility] 02/24/18 155 133 30 Enmanuel Farmer MD, [facility] /EPI
--- NOTE | ~2018-02-21 | HC ---
[facility] [place] [address] CONSULTATION Name: TERRELLJAMA Room #: 363-P [facility] IN M.R.#: [id number] Admission: 02/21/18 Attend Phys: Francois Whitehead MD Discharge: 03/03/18 Date of : 61 Report #: [id number] THIS REPORT FOR: //name// CC: Enmanuel Farmer MD [facility] Solis Brown NP DATE OF SERVICE: 02/24/2018 TYPE OF REPORT: Pulmonary consultation. REFERRING PROVIDER: Enmanuel Farmer M.D., F.A.C.C. REASON FOR CONSULTATION: Respiratory distress. HISTORY OF PRESENT ILLNESS: Our group was asked to see the patient in consultation while hospitalized at [facility], known to our group from recent admission, has been followed by Dr. Deluca and then subsequently to myself. While hospitalized, she has a history of underlying sarcoidosis and pulmonary infiltrates. In addition being confused with some encephalopathy at last admission; underlying end-stage renal disease, on hemodialysis and problems with atrial fibrillation, pulmonary hypertension. The patient had been briefly transferred to [facility], but brought back here, presumably related to possible lower GI bleed or upper GI bleed. The patient had increasing distress today and we were asked to evaluate the patient with some mildly labored breathing without significant hypoxemia. Arterial blood gas is done at the bedside showed no significant hypercapnia. She is confused but arousable with audible wheezes noted. Of note, she is obtaining all her nutrition and medications through the PEG tube, predominantly except for some IV antibiotics. ALLERGIES: Include CEFEPIME. PAST MEDICAL HISTORY: 1. Sarcoidosis, severity uncertain as the records are not available at this institution. 2. History of paroxysmal atrial fibrillation. 3. Recent encephalopathy, exact etiology unknown. 4. Chronic renal insufficiency, on hemodialysis. 5. Hypertension. 6. Prior peptic ulcer disease. 7. Hyperlipidemia. 8. Restrictive cardiomyopathy. 9. Hypothyroidism. [facility] [address] [place] [address] CONSULTATION Name: JAMA TERRELL Room #: 363-P [facility] IN .R.#: [id number] Admission: 02/21/18 Attend Phys: Francois Whitehead MD Discharge: 03/03/18 Date of : 61 Report #: [id number] CURRENT INPATIENT MEDICATIONS: Include: 1. Atorvastatin. 2. Albuterol. 3. Diltiazem. 4. Daptomycin. 5. Fentanyl. 6. Ferrous sulfate. 7. Folic acid. 8. Lasix. 9. Lorazepam. 10. Prednisone. 11. Nystatin. 12. Protonix. 13. Valacyclovir. 14. Zyloprim. SOCIAL HISTORY: Unobtainable from this patient given the diminished level of consciousness. FAMILY HISTORY: Unobtainable from this patient given the diminished level of consciousness. REVIEW OF SYSTEMS: Unobtainable from this patient given the diminished level of consciousness. PHYSICAL EXAMINATION: VITAL SIGNS: Afebrile, pulse 90s, respiratory 18, blood pressure 136/70 and oxygen saturation 100% on 2 liters. GENERAL: This is a middle-aged woman, somnolent but arousable, noted mild respiratory distress. ENT: Clear oropharynx. NECK: Supple. No lymphadenopathy. LUNGS: Diffuse expiratory wheeze noted throughout. CARDIOVASCULAR: Heart was regular. No murmurs noted. ABDOMEN: Soft. PEG tube in place. EXTREMITIES: With trace edema. RADIOLOGICAL DATA: Chest x-ray revealed some mild pulmonary edema pattern and also some chronic appearing pulmonary infiltrates, more centrally located. LABORATORY DATA: White blood cell count 16,000; hemoglobin 7; hematocrit 21 and platelet count 141. Sodium 145, potassium 4.5, chloride 109, bicarbonate 27, BUN , creatinine 1.8 and glucose 105. IMPRESSION: [address] [address] CONSULTATION Name: NIDHIJAMA A Room #: 363-P [facility] IN .R.#: [id number] Admission: 02/21/18 Attend Phys: Francois Whitehead MD Discharge: 03/03/18 Date of : 61 Report #: [id number] 1. Scadv-vi-skxbwki hypoxemic respiratory failure, does not appear to be pulmonary edema process on x-ray, likely related to sarcoidosis and/or other acute pulmonary process. Consider infectious process. 2. Altered mental status, not sure what her baseline is. Compared, this is certainly worse more recent findings of encephalopathy noted on last admit. 3. Paroxysmal atrial fibrillation. 4. Chronic renal insufficiency. 5. Pulmonary hypertension. 6. Questionable sepsis from a cardiac lead vegetation. 7. Anemia, possible ongoing blood loss. SUGGESTIONS: 1. Bronchodilators q. 4 hours. 2. Boost steroids. 3. Follow up chest x-ray, may consider repeat CT chest. 4. Consider ICU transfer to further evaluate. 5. Follow up arterial blood gas in a.m. 6. Continuous oximetry. Thank you for requesting our suggestions. <ELECTRONICALLY SIGNED> By: Raf Dowling MD 03/04/18 1029 1341 0119 Raf Dowling MD /nt
[~2018-02-21 19:47] MED LIST: AKWA TEARS EYE15 ML OPHTHALMIC; ALBUTEROL2.5 MG/31 INH; ALLOPURINOL 10100 M1 PER TUBE; ALLOPURINOL 10100 M2 PER TUBE; ASPIR 8181 MG PER TUBE; ATORVASTATIN CA40 MG PO; CUBICIN500 MG IVPB; DILTIAZEM HCL90 MG PER TUBE; DUONEB 2.5-0.5 M3 ML INH; FOLIC ACID1 MG PER TUBE; IRON325 PER TUBE; ISORDIL10 MG PER TUBE; LANSOPRAZOLE30 M2 PER TUBE; LOPRESSOR25 PER TUBE; METOCLOPRAM5 MG/5 M2 PER TUBE; MIRALAX17 GM PER TUBE; NITROGLYCERIN0.4 MG SUBLING; NYAMYC15 GM TOP; PROPAFENONE 15150 MG PER TUBE; PROTONIX40 M1 PO; RENA-VITE TABL0.8 MG PER TUBE; SOLU-MEDRO40 MG/1 M1 IV PUSH; TORSEMIDE20 MG PO; VALTREX 500 MG500 MG PO; VITAMINC500 PER TUBE; ZOSYN 3.3753.375 GM IV; [UNRECOGNIZED DRUG - OTHER] TOP
[2018-02-21 19:49] VITALS: BP 129/76
[2018-02-21 21:11] LABS: HEMATOCRIT 20.2 % (37.0-47.0); HEMOGLOBIN 6.9 gm/dL (12.0-15.0)
[2018-02-21 21:13] LABS: MCH 31.4 pg (26.0-34.0); MCHC 34.1 g/dL (28.0-37.0); PLATELET COUNT 127 thou/uL (150-400); RDW 16.5 % (10.5-14.5)
[2018-02-21 21:17] LABS: CALCIUM 7.2 mg/dL (8.5-10.1); CREATININE 1.4 mg/dL (0.6-1.0)
[2018-02-21 21:23] LABS: APTT 27.5 Seconds (24.5-32.8); INR 1.1; PROTIME 10.8 Seconds (9.3-11.4)
[2018-02-21 21:24] LABS: POTASSIUM 4.6 mmol/L (3.5-5.1)
[2018-02-21 21:27] LABS: ALBUMIN 1.7 g/dL (3.4-5.0); TOTAL BILIRUBIN 0.7 mg/dL (<0.1-1.0); TOTAL PROTEIN 5.3 g/dL (6.4-8.2)
[2018-02-21 21:39] LABS: ABSOLUTE NEUTROPHILS 16.9 thou/uL (1.4-8.2); METAMYELOCYTES 2 %
[2018-02-21 21:41] LABS: ANISOCYTOSIS 1+; POLYCHROMASIA OCCASIONAL
[2018-02-21 22:24] VITALS: BP 124/63
[2018-02-21 22:37] VITALS: BP 129/69
[2018-02-21 23:05] VITALS: BP 118/63
[2018-02-22 04:00] VITALS: BP 131/68
[2018-02-22 05:58] LABS: WBC 15.3 thou/uL (4.0-11.0)
[2018-02-22 06:00] LABS: MCH 32.1 pg (26.0-34.0); MCHC 34.4 g/dL (28.0-37.0); MCV 93.3 fL (80.0-100.0); RBC 1.96 mil/uL (4.20-5.00); RDW 16.4 % (10.5-14.5)
[2018-02-22 06:15] LABS: HEMOGLOBIN 6.3 gm/dL (12.0-15.0)
[2018-02-22 06:16] LABS: HEMATOCRIT 18.2 % (37.0-47.0)
[2018-02-22 08:25] VITALS: BP 133/80
[2018-02-22 08:34] LABS: HEMATOCRIT 17.9 % (37.0-47.0)
[2018-02-22 09:09] VITALS: BP 132/80; BP 133/81
[2018-02-22 13:00] VITALS: BP 133/81
[2018-02-22 13:21] VITALS: BP 131/78; BP 133/81; BP 151/89
[2018-02-22 15:07] LABS: GLYCOHEMOGLOBIN (HGB A1C) 5.4 % (4.8-5.6)
[2018-02-22 18:16] LABS: HEMATOCRIT 26.4 % (37.0-47.0); HEMOGLOBIN 9.1 gm/dL (12.0-15.0)
[2018-02-22 19:08] VITALS: BP 142/90
[2018-02-22 21:49] LABS: HEMATOCRIT 26.9 % (37.0-47.0); HEMOGLOBIN 9.1 gm/dL (12.0-15.0)
[2018-02-23 02:14] LABS: HEMATOCRIT 25.1 % (37.0-47.0); HEMOGLOBIN 8.3 gm/dL (12.0-15.0)
[2018-02-23 02:28] LABS: ALBUMIN 1.7 g/dL (3.4-5.0); CALCIUM 7.5 mg/dL (8.5-10.1); CREATININE 1.6 mg/dL (0.6-1.0); PHOSPHORUS 4.1 mg/dL (2.5-4.9); POTASSIUM 4.6 mmol/L (3.5-5.1)
[2018-02-23 03:45] VITALS: BP 133/72
[2018-02-23 08:09] LABS: HAV IgM AB (ANTI-HAV IgM) Negative (Negative); HEPATITIS B SURFACE AG Negative (Negative); HEPATITIS C VIRUS AB <0.1 (0.0-0.9)
[2018-02-23 08:13] VITALS: BP 147/83
[2018-02-23 12:23] LABS: HEMATOCRIT 23.8 % (37.0-47.0); HEMOGLOBIN 8.2 gm/dL (12.0-15.0)
[2018-02-23 13:19] LABS: ALBUMIN 1.8 g/dL (3.4-5.0); DIRECT BILIRUBIN 0.5 mg/dL (<0.1-0.3); TOTAL BILIRUBIN 0.6 mg/dL (<0.1-1.0)
[2018-02-23 19:45] VITALS: BP 128/73
[2018-02-24 04:15] VITALS: BP 125/69
[2018-02-24 05:28] LABS: ALBUMIN 1.8 g/dL (3.4-5.0); CALCIUM 7.7 mg/dL (8.5-10.1); CREATININE 1.8 mg/dL (0.6-1.0); PHOSPHORUS 3.9 mg/dL (2.5-4.9); POTASSIUM 4.5 mmol/L (3.5-5.1); TOTAL BILIRUBIN 0.6 mg/dL (<0.1-1.0); TOTAL PROTEIN 5.3 g/dL (6.4-8.2)
[2018-02-24 05:57] LABS: HEMATOCRIT 21.4 % (37.0-47.0); HEMOGLOBIN 7.3 gm/dL (12.0-15.0)
[2018-02-24 08:34] VITALS: BP 131/78
[2018-02-24 08:46] LABS: MCH 32.1 pg (26.0-34.0); MCHC 33.8 % (28.0-37.0); MCV 95.2 fL (80.0-100.0); RBC 2.28 mil/uL (4.20-5.00); RDW 16.1 % (10.5-14.5)
[2018-02-24 12:40] LABS: BE(vivo) -0.8 mmol/L (-2 to +3); HCO3 23.9 mmol/L (22.0-26.0); PO2 56.6 mmHg (80.0-100.0); pH 7.395 (7.360-7.450); sO2 89.4 % (92.0-98.0)
[2018-02-24 12:49] VITALS: BP 136/70
[2018-02-24 19:50] VITALS: BP 104/73
[2018-02-25 04:30] VITALS: BP 127/79
[2018-02-25 06:30] LABS: HEMATOCRIT 20.6 % (37.0-47.0); HEMOGLOBIN 6.9 gm/dL (12.0-15.0); MCHC 33.7 g/dL (28.0-37.0); MCV 94.8 fL (80.0-100.0); RBC 2.17 mil/uL (4.20-5.00); RDW 15.7 % (10.5-14.5)
[2018-02-25 06:43] LABS: CALCIUM 7.9 mg/dL (8.5-10.1); CREATININE 1.2 mg/dL (0.6-1.0); PHOSPHORUS 2.9 mg/dL (2.5-4.9); POTASSIUM 4.6 mmol/L (3.5-5.1); TOTAL BILIRUBIN 0.6 mg/dL (<0.1-1.0); TOTAL PROTEIN 5.7 g/dL (6.4-8.2)
[2018-02-25 08:30] VITALS: BP 135/82
[2018-02-25 09:52] VITALS: BP 133/82; BP 142/87
[2018-02-25 11:36] VITALS: BP 115/69
[2018-02-25 16:12] VITALS: BP 128/76
[2018-02-25 17:05] LABS: HEMATOCRIT 26.2 % (37.0-47.0); HEMOGLOBIN 8.9 gm/dL (12.0-15.0)
[2018-02-25 19:05] VITALS: BP 138/82
[2018-02-26] VITALS: BP 120/68
[2018-02-26 03:15] VITALS: BP 126/71
[2018-02-26 05:40] LABS: HEMATOCRIT 25.1 % (37.0-47.0); HEMOGLOBIN 8.5 gm/dL (12.0-15.0); MCHC 33.9 g/dL (28.0-37.0); MCV 91.2 fL (80.0-100.0); RBC 2.75 mil/uL (4.20-5.00); RDW 15.4 % (10.5-14.5); WBC 20.8 thou/uL (4.0-11.0)
[2018-02-26 05:56] LABS: ALBUMIN 2.1 g/dL (3.4-5.0); CREATININE 1.6 mg/dL (0.6-1.0); PHOSPHORUS 3.5 mg/dL (2.5-4.9); POTASSIUM 4.1 mmol/L (3.5-5.1); TOTAL BILIRUBIN 0.7 mg/dL (<0.1-1.0); TOTAL PROTEIN 5.7 g/dL (6.4-8.2)
[2018-02-26 07:18] VITALS: BP 132/75
[2018-02-26 11:32] VITALS: BP 135/74
[2018-02-26 17:10] VITALS: BP 138/69
[2018-02-26 20:00] VITALS: BP 130/76
[2018-02-27 05:10] VITALS: BP 126/70
[2018-02-27 05:46] LABS: ALBUMIN 2.1 g/dL (3.4-5.0); CALCIUM 7.9 mg/dL (8.5-10.1); CREATININE 1.9 mg/dL (0.6-1.0); PHOSPHORUS 4.4 mg/dL (2.5-4.9); POTASSIUM 3.4 mmol/L (3.5-5.1); TOTAL BILIRUBIN 0.6 mg/dL (<0.1-1.0); TOTAL PROTEIN 5.7 g/dL (6.4-8.2)
[2018-02-27 08:48] LABS: HEMATOCRIT 24.2 % (37.0-47.0); HEMOGLOBIN 8.1 gm/dL (12.0-15.0); MCH 31.5 pg (26.0-34.0); MCHC 33.5 g/dL (28.0-37.0); MCV 93.8 fL (80.0-100.0); RBC 2.58 mil/uL (4.20-5.00); RDW 15.5 % (10.5-14.5); WBC 17.9 thou/uL (4.0-11.0)
[2018-02-27 16:22] VITALS: BP 122/74
[2018-02-27 19:05] VITALS: BP 118/63
[2018-02-28] VITALS (8 sets, daily range): BP systolic 116–147; BP diastolic 75–83
[2018-02-28 06:38] LABS: HEMOGLOBIN 8.7 gm/dL (12.0-15.0); MCH 32.6 pg (26.0-34.0); MCHC 34.9 g/dL (28.0-37.0); MCV 93.4 fL (80.0-100.0); RBC 2.67 mil/uL (4.20-5.00); RDW 15.9 % (10.5-14.5); WBC 20.5 thou/uL (4.0-11.0)
[2018-03-01 03:25] VITALS: BP 131/78
[2018-03-01 05:38] LABS: HEMATOCRIT 26.1 % (37.0-47.0); HEMOGLOBIN 8.8 gm/dL (12.0-15.0); MCH 31.4 pg (26.0-34.0); MCHC 33.8 g/dL (28.0-37.0); MCV 92.7 fL (80.0-100.0); RBC 2.82 mil/uL (4.20-5.00); WBC 17.6 thou/uL (4.0-11.0)
[2018-03-01 05:48] LABS: ALBUMIN 2.3 g/dL (3.4-5.0); CALCIUM 8.3 mg/dL (8.5-10.1); CREATININE 1.6 mg/dL (0.6-1.0); PHOSPHORUS 5.1 mg/dL (2.5-4.9)
[2018-03-01 07:24] VITALS: BP 137/81
[2018-03-01 20:20] VITALS: BP 110/71
[2018-03-02] VITALS: BP 105/65
[2018-03-02 04:55] VITALS: BP 114/61
[2018-03-02 06:31] LABS: HEMATOCRIT 25.9 % (37.0-47.0); HEMOGLOBIN 8.9 gm/dL (12.0-15.0); MCH 32.1 pg (26.0-34.0); MCHC 34.4 g/dL (28.0-37.0); MCV 93.4 fL (80.0-100.0); RBC 2.77 mil/uL (4.20-5.00); RDW 16.1 % (10.5-14.5); WBC 19.7 thou/uL (4.0-11.0)
[2018-03-02 07:00] LABS: CALCIUM 8.7 mg/dL (8.5-10.1); CREATININE 1.4 mg/dL (0.6-1.0); POTASSIUM 5.3 mmol/L (3.5-5.1)
[2018-03-02 07:35] VITALS: BP 115/60
[2018-03-02 12:11] VITALS: BP 125/66
[2018-03-02 16:11] VITALS: BP 121/72
[2018-03-02 20:09] VITALS: BP 139/90
[2018-03-03 04:20] VITALS: BP 117/58
[2018-03-03 08:01] VITALS: BP 124/78
== END 2018-03-03 17:36 | DRG 314 ==
LOC: ER 19:47 → EROBS 21:50 → 3W 21:50
PROVIDERS: Emergency Medicine; Hospitalist; Internal Medicine; Internal Medicine Gastroenterology; Internal Medicine Nephrology; Nurse Practitioner Acute Care; Psychiatry & Neurology Neurology
PROC: 30233N1 Transfusion of Nonautologous Red Blood Cells into Peripheral Vein, Percutaneous Approach (ICD-10-PCS; principal; 2018-02-22)
PROC: 5A1D70Z Performance of Urinary Filtration, Intermittent, Less than 6 Hours Per Day (ICD-10-PCS; 2018-02-23)
PROC: 0DJ08ZZ Inspection of Upper Intestinal Tract, Via Natural or Artificial Opening Endoscopic (ICD-10-PCS; 2018-02-23)
PROC: 5A1D70Z Performance of Urinary Filtration, Intermittent, Less than 6 Hours Per Day (ICD-10-PCS; 2018-02-24)
PROC: 5A1D70Z Performance of Urinary Filtration, Intermittent, Less than 6 Hours Per Day (ICD-10-PCS; 2018-02-27)
PROC: B548ZZA Ultrasonography of Superior Vena Cava, Guidance (ICD-10-PCS; 2018-02-28)
PROC: 02HV33Z Insertion of Infusion Device into Superior Vena Cava, Percutaneous Approach (ICD-10-PCS; 2018-02-28)
PROC: B5181ZA Fluoroscopy of Superior Vena Cava using Low Osmolar Contrast, Guidance (ICD-10-PCS; 2018-02-28)
PROC: 5A1D70Z Performance of Urinary Filtration, Intermittent, Less than 6 Hours Per Day (ICD-10-PCS; 2018-03-01)
PROC: 5A1D70Z Performance of Urinary Filtration, Intermittent, Less than 6 Hours Per Day (ICD-10-PCS; 2018-03-03)
DX: T80.218A Other infection due to central venous catheter, initial encounter (principal); A41.1 Sepsis due to other specified staphylococcus; N18.6 End stage renal disease; J96.21 Acute and chronic respiratory failure with hypoxia; E43 Unspecified severe protein-calorie malnutrition; G93.40 Encephalopathy, unspecified; K92.2 Gastrointestinal hemorrhage, unspecified; I42.5 Other restrictive cardiomyopathy; D62 Acute posthemorrhagic anemia; N17.9 Acute kidney failure, unspecified; I13.2 Hypertensive heart and chronic kidney disease with heart failure and with stage 5 chronic kidney disease, or end stage renal disease; I48.0 Paroxysmal atrial fibrillation; I50.9 Heart failure, unspecified; K21.9 Gastro-esophageal reflux disease without esophagitis; E03.9 Hypothyroidism, unspecified; E78.5 Hyperlipidemia, unspecified; F10.21 Alcohol dependence, in remission; D69.6 Thrombocytopenia, unspecified; E11.65 Type 2 diabetes mellitus with hyperglycemia; I27.20 Pulmonary hypertension, unspecified; D86.9 Sarcoidosis, unspecified; R13.10 Dysphagia, unspecified; E11.22 Type 2 diabetes mellitus with diabetic chronic kidney disease; R74.0 Nonspecific elevation of levels of transaminase and lactic acid dehydrogenase [LDH]; L89.159 Pressure ulcer of sacral region, unspecified stage; R41.0 Disorientation, unspecified; Z88.8 Allergy status to other drugs, medicaments and biological substances; Z87.11 Personal history of peptic ulcer disease; Z68.28 Body mass index [BMI] 28.0-28.9, adult
CPT/HCPCS: 10879; 32100; 62110; 62900; 70005

== ENCOUNTER → 2018-11-01 | Outpatient (CLI) | payer OTHER | LOC: RAD 08:52 | DX: R10.13 Epigastric pain (principal); R91.8 Other nonspecific abnormal finding of lung field; I48.91 Unspecified atrial fibrillation ==

== ENCOUNTER 2018-12-19 09:57 | Inpatient (IN) | payer OTHER ==
[~2018-12-19] VITALS: Ht 157.5 cm; Wt 73.7 kg
[2018-12-19 09:57] VITALS: BP 119/72
[~2018-12-19 09:57] MED LIST changes: -FOLIC ACID1 MG PER TUBE; +FOLIC ACID1 MG PO
[2018-12-19 10:44] LABS: ABSOLUTE NEUTROPHILS 8.3 thou/uL (1.4-8.2); BASOPHILS 0.9 % (0.0-2.0); EOSINOPHILS 1.1 % (0.0-3.0); HEMATOCRIT 23.9 % (37.0-47.0); HEMOGLOBIN 7.8 gm/dL (12.0-15.0); LYMPHOCYTES 14.7 % (24.0-44.0); MCH 29.1 pg (26.0-34.0); MCHC 32.8 g/dL (28.0-37.0); MCV 88.9 fL (80.0-100.0); MONOCYTES 8.8 % (1.0-8.0); PLATELET COUNT 311 thou/uL (150-400); POLYS 74.5 % (36.0-66.0); RBC 2.69 mil/uL (4.20-5.00); RDW 15.5 % (10.5-14.5); WBC 11.2 thou/uL (4.0-11.0)
[2018-12-19 10:57] LABS: ALBUMIN 2.6 g/dL (3.4-5.0); CALCIUM 7.5 mg/dL (8.5-10.1); CREATININE 8.6 mg/dL (0.6-1.0); TOTAL BILIRUBIN 0.8 mg/dL (<0.1-1.0); TOTAL PROTEIN 8.1 g/dL (6.4-8.2)
[2018-12-19 11:00] LABS: POTASSIUM 2.6 mmol/L (3.5-5.1)
[2018-12-19] MEDS ORDERED: CARDIZEM CD120 MG PO (11:21)
[2018-12-19] MEDS ORDERED: GABAPENTIN 100100 MG PO (11:22)
[2018-12-19] MEDS ORDERED: IPRATROPIU0.2 MG/1 M INH (11:23)
[2018-12-19] MEDS ORDERED: LASIX 40 MG TAB40 M2 PO (11:24)
[2018-12-19] MEDS ORDERED: CONSTULOSE10 GM/15 M PO (11:24)
[2018-12-19] MEDS ORDERED: AKWA TEARS EYE15 ML OPHTHALMIC (11:25)
[2018-12-19] MEDS ORDERED: PREDNISONE 5 MG5 M1 PO (11:25)
[2018-12-19] MEDS ORDERED: MUCINEX600 MG PO (11:25)
[2018-12-19] MEDS ORDERED: PULMICORT0.5 MG/22 INH (11:26)
[2018-12-19] MEDS ORDERED: TRAMADOL 50 MG50 MG PO (11:27)
[2018-12-19] MEDS ORDERED: SENNA8.6 MG PO (11:27)
[2018-12-19] MEDS ORDERED: SIMETHICON CHEW80 M1 PO (11:27)
[2018-12-19] MEDS ORDERED: ONDANSETRON HCL4 M2 PO (11:28)
[2018-12-19] MEDS ORDERED: TYLENOL325 MG PO (11:28)
[2018-12-19] MEDS ORDERED: MAALOX ADVANCE355 M1 PO (11:29)
[2018-12-19 11:35] LABS: BE(vivo) -15.1 mmol/L (-2 to +3); HCO3 11.2 mmol/L (22.0-26.0); PCO2 VENOUS 28.2 mmHg (41.0-51.0); PO2 VENOUS 52.4 mmHg (35.0-45.0)
[2018-12-19 12:44] LABS: URINE BLOOD 3+ (Negative); URINE GLUCOSE-RANDOM* NEGATIVE (Negative); URINE KETONES TRACE (Negative); URINE NITRITE-REFLEX NEGATIVE (Negative); URINE PROTEIN (DIPSTICK) 2+ (Negative); URINE UROBILINOGEN 0.2 E.U./dl (0.2-1.0)
[2018-12-19 12:47] LABS: URINE CLARITY HAZY; URINE COLOR BROWN; URINE LEUKOCYTES-REFLEX 2+ (Negative)
[2018-12-19 12:48] LABS: ICTOTEST (BILI CONFIRMATORY) Negative (Negative); URINE BILIRUBIN NEGATIVE (Negative)
[2018-12-19 13:00] LABS: CASTS None Seen /LPF (None Seen); SQUAMOUS 0-3 Few /LPF (0-3)
[2018-12-19 13:01] LABS: BACTERIA-REFLEX >30 Many /HPF (None Seen); CRYSTALS None Seen /LPF (None Seen); URINE RBC >20 Many /HPF (0-2); URINE WBC-REFLEX >25 Many /HPF (0-5); WBC CLUMPS Moderate (None Seen)
[2018-12-19 14:31] VITALS: BP 110/69
[2018-12-19 15:03] VITALS: BP 110/64
[2018-12-19 16:36] VITALS: BP 131/72
--- NOTE | 2018-12-19 17:25 | EKG ---
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: REYNA : 1965 Requested By: Iona Romero Order Number: [id number] MD: Enmanuel Farmer Measurements Intervals [place] Rate: 86 P: 207 GA: 219 QRS: 42 QRSD: 97 T: 243 QT: 388 QTc: 464 Interpretive Statements Sinus or ectopic atrial rhythm Prolonged GA interval Nonspecific ST and T wave abnormality Compared to ECG 02/24/2018 13:31:43 Ectopic atrial rhythm now present ST and T wave abnormality is new Electronically Signed On 12-19-2018 17:25:12 CDT by Enmanuel Farmer [email or web address] ��������������������������������������������� <ELECTRONICALLY SIGNED> ���������������������������������������� By: Enmanuel Farmer MD, FACC ��������������������������������������������� 12/19/18 1725 1110 1110 Enmanuel Farmer MD, [facility] /EPI
--- NOTE | 2018-12-19 17:37 | NUR ---
PT ALERT/ORIENTED X4. VOMITTING YELLOWISH SPUTUM. ALSO HAS ABD. PAIN THAT IS SHARP RATED 10/10. CVL AND DIALYSIS LINE PRESENT TO RIGHT JUGULAR. POTASSIUM AND SODIUM BICARB INFUSING ORDERED. ZOFRAN GIVEN FOR NAUSEA. TYLENOL GIVEN FOR PAIN. ASSESSMENT COMPLETED AND IS CHARTED. VSS.
[2018-12-19 19:13] VITALS: BP 133/89
[2018-12-19 19:39] LABS: INR 1.1; PROTIME 11.7 Seconds (9.3-11.4)
[2018-12-19 23:52] VITALS: BP 122/77
[2018-12-20 03:28] VITALS: BP 120/70
--- NOTE | 2018-12-20 05:01 | NUR ---
SLEPT MOST OF SHIFT. DENIES PRESENT COMPLAINTS OF PAIN. STATES HER RIGHT EAR AND THROAT HURT AT TIMES AND THAT IS WHY SHE HAS NOT BEEN EATING. TURNED FOR COMFORT AND SKIN CARE. WORKING ON GOALS AND PLAN OF CARE FOR NOC. TEMPORARY DIALYSIS SHUNT WITHOUT BLEEDING. NOT PROGRESSING TOWARDS DISCHARGE GOALS AT THIS TIME. MAINTIAN SAFE ENVIRONMENT. ENCOURAGE FLUIDS. CONTINUE TO ASSES.
[2018-12-20 05:59] LABS: RBC 2.39 mil/uL (4.20-5.00); WBC 8.6 thou/uL (4.0-11.0)
[2018-12-20 06:01] LABS: MCH 29.3 pg (26.0-34.0); MCHC 35.2 g/dL (28.0-37.0)
[2018-12-20 06:08] LABS: MCV 83.1 fL (80.0-100.0)
[2018-12-20 06:09] LABS: HEMATOCRIT 19.9 % (37.0-47.0)
[2018-12-20 06:12] LABS: CALCIUM 6.3 mg/dL (8.5-10.1)
[2018-12-20 06:15] LABS: CREATININE 7.6 mg/dL (0.6-1.0)
[2018-12-20 06:16] LABS: POTASSIUM 2.2 mmol/L (3.5-5.1)
[2018-12-20 07:10] VITALS: BP 124/61
--- NOTE | 2018-12-20 10:04 | H ---
[facility] [place] [address] HISTORY AND PHYSICAL Name: NIDHIJAMA Deidre Room #: 463-P ADM IN M.R.#: [id number] Admission: 12/19/18 ������������������ Attend Phys: Solis Juárez MD Discharge: ������������������ Date of : 61 Report #: [id number] THIS REPORT FOR: //name// CC: Solis Lambert DATE OF SERVICE: 12/19/2018 CHIEF COMPLAINT: Nausea and vomiting. HISTORY OF PRESENT ILLNESS: The patient is a 53-year-old female with multiple medical problems who was sent to the ER from [facility] with nausea and vomiting. The staff said she had persistent symptoms early this morning and has had intermittent symptoms for several days. She has also had a loss of appetite and has had significant weight loss in the last month or so. She had previously been receiving hemodialysis in house until late last fall some time in August per reports when the dialysis center and team felt that her renal function had stabilized. At that time, hemodialysis was discontinued, but there were no followup appointments or recommendations made at that time. She is noted to have elevated BUN and creatinine through ER today. PAST MEDICAL HISTORY: Sarcoidosis. I do not have the full details of this; it has been assessed and treated at in the past. 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 There was end-stage renal disease. She was on dialysis from January through 08/2018 at [facility] and prior to that I have no records or information available. There is a history of paroxysmal AFib, restrictive cardiomyopathy, GERD, anemia, dysphagia. She had a PEG tube at [place], which was subsequently removed once her appetite improved. There is report of a pacemaker implant, paroxysmal AFib, dyslipidemia, metabolic encephalopathy. She has been hospitalized at various locations across the [facility]. She has had a history of GI bleed treated at [facility] last summer. PAST SURGICAL HISTORY: Unknown. FAMILY HISTORY: Unknown. SOCIAL HISTORY: As mentioned, she has been living at [facility] for most of 2017. Prior to that is unknown. ALLERGIES: CEFEPIME. MEDICATIONS: Lipitor, folic acid, lactulose, diltiazem, Neurontin, Lasix, prednisone, Pulmicort, Senokot, tramadol, Zofran. REVIEW OF SYSTEMS: She complains of some diffuse abdominal discomfort, nausea. No headache, chest pain, shortness of breath, dysuria, syncope or fall. [facility] [address] [place] [address] HISTORY AND PHYSICAL Name: JAMA TERRELL Room #: 463-P [facility] IN ..#: [id number] Admission: 12/19/18 ������������������ Attend Phys: Solis Juárez MD Discharge: ������������������ Date of : 61 Report #: [id number] PHYSICAL EXAMINATION: VITAL SIGNS: Pulse 86, respirations 16, blood pressure 110/64, O2 sat 100% on room air. GENERAL: She is awake and alert, in no distress. HEAD AND NECK: Unremarkable. LUNGS: Clear. HEART: Regular. ABDOMEN: Soft, normoactive bowel sounds, no palpable tenderness. No rebound or guarding. EXTREMITIES: No cyanosis, clubbing or edema. NEUROLOGIC: Motor strength 3/5 throughout. She is awake and alert. She recognizes one of the nursing staff. LABORATORY DATA: Reviewed. Pertinent findings include elevated BUN and creatinine. CT of the abdomen suggests mild diffuse colonic wall thickening, possibly colitis. There are some old thoracic and lumbar compression fractures. Renal ultrasound was unremarkable, no sign of obstruction or hydronephrosis. Chest x-ray was unremarkable. ASSESSMENT: 1. Acute kidney injury. 2. Chronic kidney disease with previous history of end-stage renal disease and dialysis. 3. Sarcoidosis with a history of pulmonary component. 4. Weight loss. 5. Uremic myopathy. 6. Hypokalemia. 7. Severe protein-calorie malnutrition. 8. Anemia of chronic disease, likely related to kidney disease. PLAN: She has been assessed by the Renal Service and additional supportive fluids have been ordered, potassium replacement, follow up lab data. The coming days will tell whether she will need to reinitiate hemodialysis. Medications from home will be reviewed and obviously diuretics held at this point. Empiric antibiotics have been ordered, but may consider reimaging her abdomen in 48-72 hours. She does not present with overt signs of colitis with no significant pain and tenderness or reports of diarrhea, but we will observe her symptoms. May consider GI evaluation if she does not improve once the renal issues have stabilized and then clarified for the ongoing treatment plan. ��������������������������������������������� <ELECTRONICALLY SIGNED> ���������������������������������������� By: Solis Juárez MD ��������������������������������������������� 12/20/18 1004 1647 1725 Solis Juárez MD /nt
[2018-12-20 13:24] VITALS: BP 112/64
--- NOTE | 2018-12-20 16:35 | NUR ---
PT AD MITTED RELATED TO UTI, COLITIS. CM REVIEWED CHART AND SPOKE WITH CARE TEAM. CM MET WITH PT AT BEDSIDE THIS DAY. PT IS A&O X4. CM ROLE INTRODUCED. PT INDICATED SHE HAD BEEN AT [facility] [employer]. 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 PT INDICATED SHE ANTICIPATES RETUNING TO [place] ONCE MEDICALLY STABLE. CM CALLED AND SPOKE WITH PT'S DTR AMANDA AND SHE CONFIRMED THE ABOVE. SHE INDICATED SHE WANTS FOR PT TO RETURN HOME BUT THAT PT SAYS SHE WANTS TO STAY AT FACILITY. CM TO FOLLOW INDICATED WITH DC PLANNING. 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
--- NOTE | 2018-12-20 16:49 | NUR ---
ASSUMED CARE AT 0700. ALERT X 4, WEAK. TURNS Q2HR TOLERATED. DEAN IN PLACE AND PATENT. CLEAR LIQUID DIENT CHANGED TO FULL LIQUID. ENCOURAGED PT DRINK FLUIDS. SHE HAD 2 EPISODES OF EMESIS THIS SHIFT. CRITICAL POTASIUM THIS AFTERNOON WITH NEW ORDERS FROM DR MENDEZ FOR 40 MEQ POTASIUM IVPB OVER 4HRS AND REPEAT POTASIUM LAB.FALL PRECAUTIONS IN PLACE. CALL LIGHT IN REACH.
[2018-12-20 19:24] VITALS: BP 95/58
--- NOTE | 2018-12-21 04:17 | NUR ---
PATIENT SLEPT PART OF THE NIGHT. DENIED PAIN MEDS THROUGH THE SHIFT. POC INCLUDED TURNING EVERY 2-3 HOURS AND REPLACING K+. IJ LINE IS FLUSHED WITH EASE AND BLOOD RETURN IS GOOD. DEAN IS IN PLACE WITH NO CHANGE THIS SHIFT. FULL LIQUID DIET ENCOURAGED BUT PATENT CONTINUES TO HAVE POOR APETITE AND REPORTS BEING "WEAK". PATIENT IS COMPLIENT WITH PLAN OF CARE.
[2018-12-21 04:39] VITALS: BP 105/62
[2018-12-21 07:36] LABS: ALBUMIN 1.8 g/dL (3.4-5.0); CREATININE 6.7 mg/dL (0.6-1.0); PHOSPHORUS 4.2 mg/dL (2.5-4.9)
[2018-12-21 07:49] VITALS: BP 103/58
[2018-12-21 07:51] LABS: POTASSIUM 2.9 mmol/L (3.5-5.1)
[2018-12-21 07:52] LABS: CALCIUM 5.9 mg/dL (8.5-10.1)
[2018-12-21 13:49] VITALS: BP 98/58
--- NOTE | 2018-12-21 16:00 | NUR ---
DISCHARGE PLANNING. PATIENT ADMITTED FROM [facility]. DISCHARGE PLAN IS FOR PATIENT TO RETURN TO [place] ONCE MEDICALLY READY. CLINICAL UPDATES FAXED TO [facility] ADMISSIONS. CALL PLACED AND VOICE MAIL LEFT FOR ADAL TO NOTIFY OF PATIENTS DISCHARGE PLAN. UNIT CM/SW AWARE. FOLLOWING TO ASSIST WITH DISCHARGE.
--- NOTE | 2018-12-21 18:30 | NUR ---
PT ASSESSED THIS AM. NOT WANTING TO EAT AND VOMITED BILE AFTER TAKING SIPS WATER. PT STATES COMFORTABLE W/O PAINS. POTASSIUM REPLACED IVPB. TURNED Q2HRS. ONE LOOSE BM THIS AFTERNOON. POSSIBLE DC TOMORROW IF STABLE.
[2018-12-21 19:27] VITALS: BP 123/66
[2018-12-22 04:04] VITALS: BP 105/63
--- NOTE | 2018-12-22 04:30 | NUR ---
PATIENT SLEPT MOST OF THE NIGHT. K+ IS ACTIVELY BEING REPLACED PER MD ORDER. TURNING EVERY 2-[address]. PATIENT CONTINUES TO HAVE LOOSE STOOLS. STOOL SAMPLE SENT FOR POSSIBLE C-DIFF. KIDNEY FUNCTION CONTINUES TO IMPROVE. PATIENT APPEARS TO BE COMFORTABLE.
--- NOTE | 2018-12-22 05:51 | NUR ---
PLACED IN ISOLATION FOR POSSIBLE CDIFF DUE TO 4 LOOSE STOOLS IN 24 HOURS. ZOFRAN GIVEN PRN FOR NAUSEA. CONTINUE TO ASSES STEPHENIEY.
[2018-12-22 06:53] LABS: ALBUMIN 1.8 g/dL (3.4-5.0); CREATININE 6.6 mg/dL (0.6-1.0); PHOSPHORUS 3.9 mg/dL (2.5-4.9); POTASSIUM 3.6 mmol/L (3.5-5.1)
[2018-12-22 07:05] LABS: CALCIUM 5.7 mg/dL (8.5-10.1)
--- NOTE | 2018-12-22 08:18 | NUR ---
CRITICAL LAB CALL FROM NEHA IN [facility] REPORTING CA 5.7. CALLED DR ALFONSO'S OFFICE BETWEEN [phone] WHICH ANSWERING SERVICE DID NOT CADDIE SUPERVISOR CALL. CALLED DR HATFIELD OFFICE [phone] WITH CALL BACK AT 08. DR HATFIELD STATED HE WILL PUT IN ORDERS.
[2018-12-22 09:30] VITALS: BP 126/109
[2018-12-22 16:43] VITALS: BP 120/71
--- NOTE | 2018-12-22 16:54 | NUR ---
IF PT IS MEDICALLY STABLE TO DC OVER THE WEEKEND BACK TO [facility] CONTACT AND FAX ORDERS TO . CHART COPY ORDERED.
[2018-12-22 19:52] VITALS: BP 111/68
[2018-12-23] VITALS (19 sets, daily range): BP systolic 88–140; BP diastolic 43–90
--- NOTE | 2018-12-23 03:46 | NUR ---
PATIENT RESPONDS TO YES AND NO QUESTIONS. PATIENT INCONTIENT THIS SHIFT, PERICARE AND BARRIER CREAM APPLIED NEEDED. PATIENT TURNED Q 2 HOURS. PATIENT HAD A MUCUS LOOKING BM, NO ODOR. PATIENT REFUSING TO DRINK OR EAT AFTER SEVERAL ATTEMPT.URINE IS DARK IN COLOR NO ODOR.PATIENT IN BED ASLEEP AT THIS TIME BREATHING REGULAR AND UNLABOURER.
[2018-12-23 07:38] LABS: MCH 28.7 pg (26.0-34.0); MCHC 33.2 g/dL (28.0-37.0); MCV 86.4 fL (80.0-100.0); RBC 2.18 mil/uL (4.20-5.00); RDW 14.7 % (10.5-14.5); WBC 9.7 thou/uL (4.0-11.0)
[2018-12-23 07:44] LABS: HEMOGLOBIN 6.3 gm/dL (12.0-15.0)
[2018-12-23 07:46] LABS: HEMATOCRIT 18.8 % (37.0-47.0)
[2018-12-23 07:49] LABS: ALBUMIN 1.8 g/dL (3.4-5.0); CALCIUM 6.6 mg/dL (8.5-10.1); CREATININE 6.3 mg/dL (0.6-1.0); PHOSPHORUS 4.7 mg/dL (2.5-4.9)
[2018-12-23 10:17] LABS: HEMATOCRIT 17.6 % (37.0-47.0)
[2018-12-23 10:22] LABS: ALBUMIN 1.7 g/dL (3.4-5.0); ANION GAP 7 mmol/L (7-16); BUN 85 mg/dL (7-18); CALCIUM 6.4 mg/dL (8.5-10.1); CHLORIDE 89 mmol/L (98-107); CO2 41 mmol/L (21-32); CREATININE 6.6 mg/dL (0.6-1.0); GLUCOSE 125 mg/dL (74-106); SGOT 22 U/L (15-37); SGPT 5 U/L (30-65); SODIUM 137 mmol/L (136-145); TOTAL BILIRUBIN 0.5 mg/dL (<0.1-1.0); TOTAL PROTEIN 5.6 g/dL (6.4-8.2); TROPONIN-I <0.06 ng/mL (<0.06)
--- NOTE | 2018-12-23 10:40 | NUR ---
JEFF WYNNE CALLED AT 0955 THIS AM. PT HAD EPISODE OF SEIZURE-LIKE, SYNCOPAL ACTIVITY PRIOR TO NURSE NOT ABLE TO FEEL A PULSE. PT WAS ALERT AND PULSE PALPABLE UPON ARIVAL TO ROOM AT 0956. PT HAD PREVIOUS ORDERS TO MOVE TO ICU FOR CLOSER MONITORING THIS MORNING PER DR FLOOD. PT MOVED TO RM 236 AFTER EVENT. NO ACLS MEDS GIVEN OR CODE SHEET FILLED OUT DUE TO PT STATUS ON ARRIVAL OF CODE TEAM. DR ENGLAND AT BEDSIDE WELL AND GAVE ORDERS FOR CXR,EKG,LABS, FLUIDS AND. DR FLOOD PAGED PER PRIMARY NURSE.
[2018-12-23 11:53] LABS: BE(vivo) 15.1 mmol/L (-2 to +3); HCO3 39.6 mmol/L (22.0-26.0); PCO2 50.7 mmHg (35.0-45.0); PO2 171.4 mmHg (80.0-100.0); pH 7.511 (7.360-7.450); sO2 99.3 % (92.0-98.0)
[2018-12-23 16:19] LABS: MAGNESIUM 1.3 mg/dL (1.8-2.4); POTASSIUM 3.5 mmol/L (3.5-5.1)
--- NOTE | 2018-12-23 17:09 | NUR ---
SPOKE WITH DR. FLOOD TO GIVE PATIENT UPDATE. INFORMED HIM OF PATIENT STATUS. PT ALERT BUT NOT TRACKING OR FOLLOWING COMMANDS - NO ORDERS FOR NEURO CONSULT OR CT. ORDERS TO START ON ELECTROLYTE PROTOCOL, STOP ORAL VANCYO, KEEP PT NPO.
--- NOTE | 2018-12-23 17:35 | NUR ---
WAS IN PT ROOM AT 0930, IMMEDIATELY AFTER DRAWING BLOOD FROM CENTRAL LINE PT LOST CONSCIOUSNESS, NO PULSE FELT. RAPID RESPONSE CALLED IMMEDIATELY. PT REGAINED CONSCIOUSNESS AROUND THE SAME TIME RR WAS IN ROOM. LABS WERE DRAWN BY TEAM, VITALS TAKEN, BS TAKEN, AND AN EKG. PT TRANSFERRED TO ICU AND REPORT GIVEN TO NURSE.
[2018-12-23 18:32] LABS: HEMATOCRIT 28.2 % (37.0-47.0)
[2018-12-23 18:33] LABS: HEMOGLOBIN 9.8 gm/dL (12.0-15.0)
--- NOTE | 2018-12-23 19:12 | NUR ---
PT TRANSFERRED FROM 4W TO ICU. HGB CRITICAL - RESULTS CALLED TO DR. FLOOD, ORDERS FOR 2 UNITS PRBC. POST HGB 9.8. PT ALERT BUT WITH MINIMAL VERBAL RESPONSES. COMMUNICATED THIS WITH DR. FLOOD. AFTER CALL - PT HAD 2 EPISODES OF SEIZURES. ORDERS RECIEVED FOR ATIVAN, CT HEAD, AND NEURO CONSULT. SPOKE WITH DR. MAJANO - TO CALL WITH CT RESULTS. PT TO HAVE EEG TOMORROW. DEAN PLACED. ELECTROLYTES BEING REPLACED PER PROTOCOL.
[2018-12-24] VITALS (29 sets, daily range): BP systolic 101–160; BP diastolic 60–98
[2018-12-24 00:23] LABS: HEMATOCRIT 30.1 % (37.0-47.0); HEMOGLOBIN 10.5 gm/dL (12.0-15.0)
[2018-12-24 00:38] LABS: ALBUMIN 1.6 g/dL (3.4-5.0); CALCIUM 7.3 mg/dL (8.5-10.1); CREATININE 5.9 mg/dL (0.6-1.0); PHOSPHORUS 4.2 mg/dL (2.5-4.9); POTASSIUM 3.1 mmol/L (3.5-5.1)
--- NOTE | 2018-12-24 05:32 | NUR ---
ASSUMED OT CARE AT 1900. VSS. PT WAS DROWSY BUT AROUSABLE, SHE WAS ABLE TO ANSWER VERY FEW QUESTIONS BY NODDING, AND VERBALIZE OUCH WHEN UNCOMFORTABLE. PT RESTED WELL ALL NIGHT. BLOOD GLUCOSE LEVEL REMAINS WNL, H&H IS TRENDING UP & Cr TRENDING DOWN. HOWEVER, HEMATURIA NOTED IN DEAN CATHETER. PT HAD A GREENISH BROWN LIQUID BM YESTERDAY. BARRIER CREAM APPLIED IN BETWEEN BUTTOCK WHERE SKIN BREAKDOWN WAS NOTED. MAG AND K REPLACED TO BE RECHECKED THIS AM. PT IS STABLE, WILL CONTINUE TO MONITOR PER POC
[2018-12-24 06:50] LABS: HEMATOCRIT 28.4 % (37.0-47.0); HEMOGLOBIN 9.6 gm/dL (12.0-15.0)
--- NOTE | 2018-12-24 13:32 | EKG ---
[place] [address] [facility] [place] [address] ELECTROCARDIOGRAM REPORT Name: NIDHIJAMA Room #: 236-P ADM IN M.R.#: [id number] ������������������ Admission: 12/19/18 ������������������ Attend Phys: Solis Juárez MD Discharge: ������������������ Date of : 61 Report #: [id number] ����������������������������������������������������������������� [id number] THIS REPORT FOR: //name// [facility] Test Date: 2018-12-23 Test Time: 09:49:55 Pat Name: JAMA TERRELL Department: Room: [facility] Gender: F Studio Potter: OLIVA : 1965 Requested By: Semaj Cuellar Order Number: [id number] MD: Enmanuel Farmer Measurements Intervals Irving Rate: 103 P: 98 DE: 220 QRS: 43 QRSD: 85 T: -67 QT: 367 QTc: 481 Interpretive Statements Sinus tachycardia Prolonged DE interval Nonspecific ST and T wave abnormality Borderline prolonged QT interval Compared to ECG 12/19/2018 11:10:35 ST and T wave abnormality less pronounced Electronically Signed On 12-24-2018 13:32:19 CDT by Enmanuel Farmer [email or web address] ��������������������������������������������� <ELECTRONICALLY SIGNED> ���������������������������������������� By: Enmanuel Farmer MD, [facility] ��������������������������������������������� 12/24/18 1332 0949 0949 Enmanuel Farmer MD, [facility] /EPI
--- NOTE | 2018-12-24 19:42 | NUR ---
ASSUMED CARE OF PT AT 0700 THIS SHIFT. PT HAS BEEN COOPERATIVE, HAS DENIED ANY PAIN THIS SHIFT, HOWEVER PT IS NOT ORIENTED, AND NOT ABLE TO COMMUNICATE EFFECTIVELY. PT HAD AN EEG THIS SHIFT, SEE RESULTS DOCUMENTED. ASSESSMENTS ARE DOCUMENTED, PT HAS NOT HAD VISITORS THIS SHIFT, EDUCATION WAS PROVIDED. PLAN OF CARE IS TO CONTINUE TO MONITOR PT CLOSELY AT THIS TIME.
[2018-12-25] VITALS (29 sets, daily range): BP systolic 125–161; BP diastolic 80–108
--- NOTE | 2018-12-25 03:22 | NUR ---
NO SIGNIFICANT CHANGES OVERNIGHT. PT A&O TO SELF; AFFECT IS FLAT. PT WILL ANSWER SIMPLE YES/NO QUESTIONS, BUT DOES NOT VOICE ANY CONCERNS. DENIES PAIN. ASSESSMENTS AND VITALS DOCUMENTED. WILL CONTINUE TO MONITOR.
[2018-12-25 05:34] LABS: HEMATOCRIT 29.2 % (37.0-47.0)
[2018-12-25 05:43] LABS: ALBUMIN 1.5 g/dL (3.4-5.0); CALCIUM 7.9 mg/dL (8.5-10.1); CREATININE 5.8 mg/dL (0.6-1.0); PHOSPHORUS 3.8 mg/dL (2.5-4.9); POTASSIUM 3.6 mmol/L (3.5-5.1)
--- NOTE | 2018-12-25 08:51 | NUR ---
Pt TRANSFERRED TO ICU. WILL PLACE ON HOLD AND AWAIT NEW ORDERS TO RESUME WHEN APPROPRIATE
--- NOTE | 2018-12-25 09:23 | NUR ---
Nutrition: Pt NPO past 2 days and prior poor po intake. Nsg reports PEG tube is present. REC initiate Nepro tube feeds to run at 35 mL/hr goal rate. Caution refeeding syndrome risk, advance rate cautiously. Defer fluid needs to renal.
--- NOTE | 2018-12-25 10:01 | 2DMMODE ---
[facility] [address] [place] [address] 2 D/M-MODE ECHOCARDIOGRAM Name: JAMA TERRELL Room #: 236-P ADM IN M.R.#: [id number] ������������� Admission: 12/19/18 ������������� Attend Phys: Luz Marina Garay Discharge: ��� ������������� ��� Date of : 61 Date of Service: 12/25/18 1001 �� Report #: [id number] �������� ��������������������������������������������[id number] THIS REPORT FOR: //name// APPROVED REPORT Study performed: 12/25/2018 08:59:31 EXAM: Comprehensive 2D, Doppler, and color-flow Echocardiogram Patient Location: ICU Room #: [facility] Status: routine BSA: 1.72 BP: 153/98 mmHg Other Information Study Quality: Technically Difficult Technically limited study due to inability to position patient. Indications Atrial Fibrillation Pacemaker Syncope 2D Dimensions RVDd: 32.48 mm IVSd: 7.11 (7-11mm) LVOT Diam: 17.55 (18-24mm) LVDd: 39.99 mm PWd: 9.22 (7-11mm) Ascending Ao: 25.37 (22-36mm) LVDs: 28.19 (25-40mm) Aortic Root: 24.61 mm IVC: 13.00 mm Volumes Left Atrial Volume (Systole) Single Plane 4CH: 54.74 mL Single Plane 2CH: 33.48 mL LA ESV Index: 28.00 mL/m2 Aortic Valve AoV Peak Martínez.: 1.20 m/s AO Peak Gr.: 5.71 mmHg LVOT Max P.31 mmHg LVOT Max V: 0.91 m/s ANANYA Vmax: 1.84 cm2 Mitral Valve [facility] [address] [place] [address] 2 D/M-MODE ECHOCARDIOGRAM Name: JAMA TERRELL Room #: 236-P [facility].#: [id number] ������������� Admission: 12/19/18 ������������� Attend Phys: Luz Marina Garay Discharge: ��� ������������� ��� Date of : 61 Date of Service: 12/25/18 1001 �� Report #: [id number] �������� ��������������������������������������������[id number] MV Decel. Time: 100.46 ms MV E Max Martínez.: 1.18 m/s IVRT: 85.35 ms Pulmonary Valve PV Peak Martínez.: 1.06 m/s PV Peak Gr.: 4.47 mmHg Tricuspid Valve TR Peak Martínez.: 2.77 m/s RAP Estimate: 10.00 mmHg TR Peak Gr.: 30.77 mmHg PA Pressure: 41.00 mmHg Left Ventricle The left ventricle is normal size. There is normal left ventricular wall thickness. Left ventricular systolic function is moderately decreased. LVEF is 40%. Hyopokinesis of septum and anteroapex This study is not technically sufficient to allow evaluation of the LV diastolic function. Right Ventricle The right ventricle is normal size. The right ventricular systolic function is normal. Atria The left atrium size is normal. The right atrium size is normal. Aortic Valve The aortic valve is normal in structure. Mild aortic regurgitation. There is no aortic valvular stenosis. Mitral Valve The mitral valve is normal in structure. Mild mitral regurgitation. No evidence of mitral valve stenosis. Tricuspid Valve The tricuspid valve is normal in structure. Mild tricuspid regurgitation. PAP is estimated at 40 mmHg. Pulmonic Valve The pulmonary valve is normal in structure. There is no pulmonic valvular regurgitation. Great Vessels The aortic root is normal in size. IVC is normal in size and collapses <50% with inspiration. [facility] [place] [address] 2 D/M-MODE ECHOCARDIOGRAM Name: JAMA TERRELL Deidre Room #: 236-P ADM IN .R.#: [id number] ������������� Admission: 12/19/18 ������������� Attend Phys: Luz Marina Garay Discharge: ��� ������������� ��� Date of : 61 Date of Service: 12/25/18 1001 �� Report #: [id number] �������� ��������������������������������������������[id number] Pericardium There is no pericardial effusion. <Conclusion> Left ventricular systolic function is moderately decreased. LVEF is 40%. Hyopokinesis of septum and anteroapex The aortic valve is normal in structure. Mild aortic regurgitation, no stenosis. The mitral valve is normal in structure. Mild mitral regurgitation. Mild tricuspid regurgitation. Pulmonary artery pressure estimated at 40 mmHg. There is no pericardial effusion. ��������������������������������������������� <ELECTRONICALLY SIGNED> ���������������������������������������� By: Enmanuel Farmer MD, FAC ��������������������������������������������� 12/25/18 100 00 100 Enmanuel Farmer MD, [facility] /INF
[2018-12-25 11:19] LABS: TSH 0.673 uIU/mL (0.358-3.740)
--- NOTE | 2018-12-25 14:27 | NUR ---
PT TRANSFERRED TO ICU 12/23, POSSIBLE SEIZURE. PT LIVES IN [facility]. [facility] ADMISSIONS UPDATED.
[2018-12-26] VITALS (14 sets, daily range): BP systolic 118–147; BP diastolic 72–99
--- NOTE | 2018-12-26 03:21 | NUR ---
ASSUMED CARE 1900. VSS, ST ON MONITOR. ASSESSMENT CHARTED. A&O 2-4, HAD SEVERAL GOOD CONVERSATIONS AND WILL FOLLOW COMMANDS , PT WOULD HAVE FLAT AFFECT AT TIMES THEN ORIENT BACK. NO SEIZURE ACTIVITY, DENIES PAIN OR CONCERNS. Q2 TURNS. BED BATH AND LOTIONED DRY SKIN. SMALL JELLY GREENISH STOOL. DEAN OUTPUT CONTINUES PINK TINGED. PT COUGHED UP CLEAR LIQUID, STATED FELT LIKE ACID REFLUX. NPO. PLAN FOR EGD AND LABS THIS AM. WILL CONTINUE TO MONITOR AND WITH POC.
--- NOTE | 2018-12-26 03:30 | NUR ---
ASSUMED CARE 1900. VSS, ST MONITOR. ASSESSMENT CHARTED. A&O X 2-4 FOLLOWS COMMANDS. WILL HOLD GOOD CONVERSATIONS AND IS ORIENTED THEN GETS CONFUSED AT TIMES WITH FLAT AFFECT. NO SEIZURE ACTIVITY. PT DENIES PAIN OR CONCERN. RA STATS HIGH 90'S. Q2 TURNS. BED BATH/LOTIONED DRY SKIN. SMALL JELLY GREENISH STOOL. DEAN INB PLACE OUTPUT CONTINUES TO BE PINK TINGED. PT COUGHED CLEAR LIQUID UP, STATED ACID REFLUX. NPO. PLAN FOR SPEACH EVAL AND LABS THIS AM. WILL CONTINUE TO MONITOR AND WITH POC.
[2018-12-26 04:11] LABS: ALBUMIN 1.4 g/dL (3.4-5.0); CREATININE 5.7 mg/dL (0.6-1.0); HEMATOCRIT 29.7 % (37.0-47.0); HEMOGLOBIN 10.3 gm/dL (12.0-15.0); MCH 30.3 pg (26.0-34.0); MCHC 34.7 g/dL (28.0-37.0); MCV 87.5 fL (80.0-100.0); PHOSPHORUS 4.6 mg/dL (2.5-4.9); POTASSIUM 3.4 mmol/L (3.5-5.1); RBC 3.4 mil/uL (4.20-5.00); RDW 13.7 % (10.5-14.5); WBC 10.6 thou/uL (4.0-11.0)
--- NOTE | 2018-12-26 10:03 | HC ---
[facility] [place] [address] CONSULTATION Name: NIDHIJAMA A Room #: 236-P [facility] IN ..#: [id number] Admission: 12/19/18 ������������������ Attend Phys: Solis Juárez MD Discharge: ������������������ Date of : 61 Report #: [id number] THIS REPORT FOR: //name// CC: Solis Lambert HISTORY OF PRESENT ILLNESS: The consult is apparently for possible seizure disorder. I reviewed the notes, but could not find out what these major neurological events were that were documented in the chart. This morning, the patient is able to carry on a conversation. She is confused, but is conversant. When I asked her specific questions, she was unable to answer them. The patient has had no obvious seizure activity. She previously had an EEG on 12/24. This EEG was abnormal and secondary to encephalopathy. The patient is currently admitted to the hospital for renal failure. PAST MEDICAL HISTORY: End-stage renal disease, cardiomyopathy, gastroesophageal reflux, gastric ulcers, GI bleed, sarcoidosis, hypothyroidism, pacemaker, hypertension, acute respiratory failure. PAST SURGICAL HISTORY: Not documented aside from PEG tube placement and pacemaker insertion. MEDICATIONS: At home included atorvastatin, folic acid, lactulose, Mucinex, Tylenol, albuterol nebulizer, diltiazem, gabapentin, furosemide, prednisone, Pulmicort, senna, simethicone, Ultram, ondansetron and Maalox. ALLERGIES: CEFEPIME. VITAL SIGNS: Temperature 36.9, pulse rate 98, respiratory rate 15, blood pressure 149/89, bedside pulse oximetry 96% on 3 liters nasal cannula. LABORATORY DATA: White blood cell count 9.7, hemoglobin 10, hematocrit 29.2, MCV 86.4, platelet count 246,000. Urinalysis; 2+ protein, trace ketones, 3+ blood, 2+ leukocyte esterase, many bacteria. Chemistry: Sodium 124, potassium 3.6, chloride 84, carbon dioxide 34, BUN 64, creatinine 5.9, GFR 9, glucose 115. Magnesium 2.6, calcium 7.9, phosphorus 3.8. IMAGING: CT of the head demonstrates moderate atrophy and mild microvascular ischemia. NEUROLOGIC EXAMINATION: Cranial nerves 2-12 are grossly intact. Motor exam demonstrates symmetrical strength in all 4 extremities with tone and bulk normal. Reflexes are trace throughout. Coordination demonstrates no evidence of dysmetria. IMPRESSION: This patient continues to be encephalopathic; however, she does [address] [address] CONSULTATION Name: JAMA TERRELL Room #: 236-P [facility] IN [facility]#: [id number] Admission: 12/19/18 ������������������ Attend Phys: Solis Juárez MD Discharge: ������������������ Date of : 61 Report #: [id number] appear to have improved, although her sodium level continues to drop; yesterday it was 132, today it is 124, the more hyponatremic, the patient becomes more confused she maybe. She has had an EEG showing a severe encephalopathy. I will repeat this today as I suspect it will be improved. At this point, I am not going to add-on any type of seizure medication. I see the patient has been taken off her home medications. She does have p.r.n. lorazepam and I would use this very sparingly as this could make her more confused and may certainly make her tired. I thank you for your kind referral of this patient. ��������������������������������������������� <ELECTRONICALLY SIGNED> ���������������������������������������� By: Hanane Guevara DO ��������������������������������������������� 12/26/18 1003 1039 [id number] Hanane Guevara DO /nt
--- NOTE | 2018-12-26 15:29 | NUR ---
DCP FAXED CLINICAL UPDATE TO [facility] SPOKE WITH ARTHUR IN ADM. SHE RECEIVED UPDATE AND DCP TO FAX PT/OT NOTES ONCE AVAILABLE AND ANTICIPATE DC BY THE END OF THE WEEK. WILL KEEP FACILITY UPDATED. DCP TO FOLLOW.
--- NOTE | 2018-12-26 18:22 | NUR ---
PATIENT TRANSFERED FROM ICU AT 1330. ALERT TO SELF. CONFUSED. HAS LOOSE STOOL WITH EACH TIME TURN. DENIES PAIN. POOR APPETITE.NOYED BLOODY TINGED URINE. SLOWLY TOWARDS POC GOALS.
--- NOTE | 2018-12-26 21:24 | NUR ---
Assumed care at 1845. Pt resting in bed. Alert and oriented to time and place. VSS. Pt denies pain. Applied barrier cream to buttocks. Garza still draining pinkish urine. No episodes of vomiting as of yet. No identified needs at the moment. Will continue to monitor.
[2018-12-27 00:11] VITALS: BP 137/85
[2018-12-27 04:21] VITALS: BP 136/87
[2018-12-27 06:10] LABS: ALBUMIN 1.3 g/dL (3.4-5.0); CALCIUM 7.3 mg/dL (8.5-10.1); CREATININE 5.8 mg/dL (0.6-1.0); PHOSPHORUS 4.5 mg/dL (2.5-4.9); POTASSIUM 3.7 mmol/L (3.5-5.1)
[2018-12-27 07:25] VITALS: BP 112/68
--- NOTE | 2018-12-27 10:32 | NUR ---
DISCHARGE PLANNING. [facility]. REQUESTING UPDATE ON PATIENTS ANTICIPTAED DISCHARGE DATE. INFORMATION PROVIDED TO HER REGARDING DISCHARGE AND VERIFIED THAT UPDATED CLINICAL INFOMATION RECEIVED. FOLLOWING TO ASSIST WITH DISCHARGE NEEDS.
[2018-12-27 12:47] VITALS: BP 165/91
--- NOTE | 2018-12-27 16:21 | NUR ---
SIRI reviewed chart and spoke with nursing and attending physician. Pt was transferred to from ICU and is progressing towards goals for discharge. Attending physician requested [facility] to evaluate pt. [facility] liaison evaluated pt and pt does not qualify for admission to LTAC. SIRI met with pt at bedside to provide update and discuss discharge plan to return to [place] when she is ready for discharge. Pt confirms plan. naval surface fire support planner faxed clinical updates to [place]. SIRI is following to assist as needed with discharge planning.
[2018-12-27 17:02] VITALS: BP 137/80
[2018-12-27 19:31] VITALS: BP 135/77
--- NOTE | 2018-12-27 19:55 | NUR ---
PT HAS BEEN REFUSING FOOD TODAY...NEED TO ENCOURAGE INTAKE
--- NOTE | 2018-12-28 04:37 | NUR ---
PT DOES NOT ENGAGE WELL, ALWAYS KEEPS HAIR BONNET PULLED DOWN OVER HER EYES. SHE WOULD ANSWER YES OR NO QUESTIONS WITH FLAT EFFECT. ORDERED LOW LOSS PUMP FOR BED DUE TO INCONTINENCE AND WOUND ON COCCYX. PT STILL NOT WANTING TO EAT. PULLED LABS FROM PTS PICC LOCATIONS WITHOUT ANY ISSUES, ALL FLASH AND DRAW GREAT. FOLLOWING POC WITH IVF. HOURLY ROUNDING.
[2018-12-28 04:45] VITALS: BP 144/83
[2018-12-28 04:48] LABS: ALBUMIN 1.2 g/dL (3.4-5.0); CREATININE 5.6 mg/dL (0.6-1.0); PHOSPHORUS 4.5 mg/dL (2.5-4.9); POTASSIUM 3.3 mmol/L (3.5-5.1)
[2018-12-28 07:25] VITALS: BP 144/81
[2018-12-28 15:16] VITALS: BP 134/84
[2018-12-28 19:31] VITALS: BP 120/82
--- NOTE | 2018-12-28 19:31 | NUR ---
PT MUCH MORE ALERT TODAY..ATE 2 MEALS AND ENGAGES IN SOME CONVERSATION..STILL HAS FLAT AFFECT..
[2018-12-29 04:32] VITALS: BP 142/81
[2018-12-29 06:32] LABS: HEMATOCRIT 23.5 % (37.0-47.0); HEMOGLOBIN 7.9 gm/dL (12.0-15.0); MCH 30.2 pg (26.0-34.0); MCHC 33.7 g/dL (28.0-37.0); MCV 89.4 fL (80.0-100.0); RBC 2.63 mil/uL (4.20-5.00); RDW 14.1 % (10.5-14.5); WBC 7.9 thou/uL (4.0-11.0)
[2018-12-29 06:45] LABS: ALBUMIN 1.4 g/dL (3.4-5.0); CALCIUM 7.3 mg/dL (8.5-10.1); CREATININE 5.4 mg/dL (0.6-1.0); POTASSIUM 3.5 mmol/L (3.5-5.1)
--- NOTE | 2018-12-29 07:30 | NUR ---
Pt. slept intermittently in between cares. Repositioned. Incontinent of loose bm x 3 this shift. Denies any pain. Moisture barrier applied after each incontinence. Will continue to monitor.
[2018-12-29 07:55] VITALS: BP 140/79
--- NOTE | 2018-12-29 15:33 | NUR ---
Assumed care of patient at 0700. Vitals have been stable. Patient is alert, oriented to person and place, otherwise confused. Follows commands. Interactive with staff. Flat affect. Denies pain and SOA. Right triple IJ intact; white port does not draw back blood. IV team notified and Cathflo ordered. Incontinent of bowel; cleaned as needed and barrier cream applied. Repositioning every 2 hours to maintain skin integrity. Low airloss mattress pump in place. Profo boots on. Patient still with poor appetite. Only taking a few bites of each meal. Continue to encourage PO intake. Garza to DD with minimal urine output - blood tinged. Slowly progressing towards POC. Will continue to monitor.
[2018-12-29 15:55] VITALS: BP 152/90
--- NOTE | 2018-12-29 16:11 | NUR ---
SW reviewed chart and spoke with nursing and attending physician. Pt is progressing towards goals for discharge. No weekend discharge anticipated. Renal function to be checked on Tuesday. If pt is medically stable, pt will d/c back to [facility] on Tuesday. SIRI is following to assist as needed with discharge planning.
[2018-12-29 19:55] VITALS: BP 144/88
[2018-12-30 04:10] VITALS: BP 152/54
[2018-12-30 07:30] VITALS: BP 154/91
--- NOTE | 2018-12-30 07:47 | NUR ---
Slept fair during the night. More alert last night and answered questions when asked. Repositioned for comfort. Incontinent of bowel. Protective barrier cream applied after each incontinence. Bed alarm on. Slowly making progress towards care plan goals.
[2018-12-30 08:08] LABS: ALBUMIN 1.6 g/dL (3.4-5.0); CALCIUM 7.6 mg/dL (8.5-10.1); CREATININE 5.4 mg/dL (0.6-1.0); PHOSPHORUS 4.2 mg/dL (2.5-4.9); POTASSIUM 3.6 mmol/L (3.5-5.1)
--- NOTE | 2018-12-30 14:50 | NUR ---
Assumed care of patient at 0700. Vitals have been stable. Patient has continued to be alert and interactive with staff today. Oriented x2-3. Flat affect but cooperative and follows commands. IVF discontinued per renal; electrolytes replaced per onetime orders or electrolyte protocol. Magnesium still low at this time, will continue to follow protocol to replace. Patient still needs encouraging with PO intake; poor appetite. Repositioning every couple hours to maintain skin integrity. Garza to DD with blood tinged urine, low urine output. Physicians aware. To collect another UA to send. Okay to discontinue telemetry per Dr. Juárez to transfer to . Slowly progressing towards POC. Will continue to monitor.
[2018-12-30 15:05] VITALS: BP 139/89
[2018-12-30 17:34] LABS: URINE BLOOD 3+ (Negative); URINE CLARITY CLEAR; URINE COLOR YELLOW; URINE GLUCOSE-RANDOM* TRACE (Negative); URINE KETONES TRACE (Negative); URINE PROTEIN (DIPSTICK) 3+ (Negative); URINE UROBILINOGEN 0.2 E.U./dl (0.2-1.0)
[2018-12-30 17:40] LABS: URINE BILIRUBIN NEGATIVE (Negative); URINE LEUKOCYTES-REFLEX 3+ (Negative); URINE NITRITE-REFLEX POSITIVE (Negative)
[2018-12-30 17:41] LABS: ICTOTEST (BILI CONFIRMATORY) Negative (Negative)
[2018-12-30 17:42] LABS: BACTERIA-REFLEX >30 Many /HPF (None Seen); SQUAMOUS 0-3 Few /LPF (0-3)
[2018-12-30 17:44] LABS: CASTS None Seen /LPF (None Seen); URINE RBC >20 Many /HPF (0-2)
[2018-12-30 17:45] LABS: TRIPLE PHOSPHATE CRYSTALS 0-3 Few /LPF (None Seen); URINE WBC-REFLEX >25 Many /HPF (0-5)
[2018-12-30 19:45] VITALS: BP 130/90
[2018-12-31 03:45] VITALS: BP 133/87
--- NOTE | 2018-12-31 05:25 | NUR ---
ASSUMED PT CARE AROUND 1900. ORIENTED TO PERSON AND PLACE ONLY. PLEASANT AND COOPERATIVE. FOLLOWS COMMANDS. SLEPT PART OF THE NIGHT. C/O LEFT SIDED ABDOMINAL PAIN AND HEADACHE AT BEGINNING OF SHIFT. TYLENOL GIVEN. PT STATED PAIN HAS RESOLVED. REPOSITIONED TO PREVENT SKIN BREAKDOWN. VSS. AFEBRILE. BREATHING TX PER RT GIVEN PRN SOA/WHEEZING. DEAN TO DD. FALL PRECAUTIONS IN PLACE. PROGRESSING SLOWLY TOWARD POC GOALS. WILL CONTINUE TO MONITOR FURTHER.
[2018-12-31 06:32] LABS: ALBUMIN 1.3 g/dL (3.4-5.0); CALCIUM 7.7 mg/dL (8.5-10.1); CREATININE 5.7 mg/dL (0.6-1.0); PHOSPHORUS 4.7 mg/dL (2.5-4.9); POTASSIUM 3.7 mmol/L (3.5-5.1)
[2018-12-31 07:23] VITALS: BP 131/80
--- NOTE | 2018-12-31 15:35 | NUR ---
Assumed care of patient at 0700. Vitals have been stable. Patient has had complaints today of feeling very SOB. Lungs are wheezey and coarse. Maintaining oxygen saturations on RA. Receiving PRN breathing treatments, but are not helping much. Dr. Juárez ordered CXR; shows liklely pulmonary edema. Dr. Velásquez rounded and ordered dialysis for today. Patient left floor around 1430 for dialysis. Patient also with complaints of lower abdominal pain / cramping; Dr. Juárez aware. Tylenol and repositioning for comfort. Turn q 2 hours. Garza to DD with low urine output. Poor appetite, but unable to consume much PO due to SOB today. Not yet progressing towards POC. Will continue to monitor.
[2018-12-31 18:35] VITALS: BP 127/80
[2018-12-31 20:25] VITALS: BP 140/87
--- NOTE | 2019-01-01 03:00 | NUR ---
ASSUMED PT CARE AROUND 1900. ORIENTED TO PERSON AND PLACE. DENIES ANY PAIN TONIGHT. HER BREATHING SEEMS BETTER SINCE DIALYSIS YESTERDAY. PT HAS BEEN ALERT AND AWAKE MOST OF THE NIGHT, WITH A GOOD SENSE OF HUMOR. RESP EVEN AND UNLABORED. REPOSITIONED FREQUENTLY TO PREVENT FURTHER SKIN BREAKDOWN. PROGRESSING SLOWLY TOWARD POC GOALS. FALL PRECAUTIONS IN PLACE. WILL CONTINUE TO MONITOR FURTHER.
[2019-01-01 03:49] VITALS: BP 110/56
[2019-01-01 07:35] VITALS: BP 150/62
--- NOTE | 2019-01-01 16:31 | NUR ---
dp sent updates on patient to [place] with possible dc in a few days.
--- NOTE | 2019-01-01 17:07 | NUR ---
WILL HAVE DIALYSIS TOMORROW. STATES SHE FEELS MUCH BETTER. NEEDS TO BE FED. APPETITE POOR SHE DID NOT EAT LUNCH. NOTED TO BE POCKETING FOOD. WILL ASK SPEECK TO [facility] FOR POSSIBLE PUREED DIET. SPEECH HAS ALREAD BEEN CONSULTED. REFUSED TO BE TURNED AT TIMES. WILL CONT WITH PLAN OF CARE.
[2019-01-01 19:25] VITALS: BP 139/67
--- NOTE | 2019-01-01 22:51 | NUR ---
ASSUMED PT CARE AROUND 1900. ORIENTED TO PERSON AND PLACE. DENIES SOA. VSS. REPOSITIONED TO PREVENT SKIN BREAKDOWN. PT TRANSFERED TO [facility]. REPORT GIVEN TO RECEIVING RN. PT'S DTR AMANDA NOTIFIED OF PT TRANSFER. PT MOVED TO NEW ROOM AROUND 0.
--- NOTE | 2019-01-02 02:57 | NUR ---
PT TRANSFERRED TO THE UNIT AT AROUND 2245HRS. PT IS ALERT TO SELF. CONVERSATIONAL. Q2HR TURN PROVIDED. MUCOUSY STOOL NOTED. DEAN WITH DARK BLOODY URINE. WITH GENERALISED EDEMA. DENIES PAIN. BARRIER CRM APPLIED TO BOTTOM AND PRAFO BOOTS WELL SCDS IN PLACE. PT IS ON ROOM AIR-NO DISTRESS.CALL LIGHT WITHIN REACH. NPO AFTER MIDNIGHT FOR IR DIALYSIS CATH PLACEMENT TOMORROW.WILL CONTINUE WITH POC TILL EOS.
[2019-01-02 04:30] VITALS: BP 133/73
[2019-01-02 07:43] LABS: HEMATOCRIT 21.6 % (37.0-47.0); HEMOGLOBIN 7.1 gm/dL (12.0-15.0); MCH 29.6 pg (26.0-34.0); MCV 89.8 fL (80.0-100.0); RBC 2.4 mil/uL (4.20-5.00); RDW 14.6 % (10.5-14.5); WBC 5.9 thou/uL (4.0-11.0)
[2019-01-02 08:04] LABS: INR 1.1
[2019-01-02 09:41] VITALS: BP 130/79
--- NOTE | 2019-01-02 09:52 | EEG ---
[facility] [place] [address] ELECTROENCEPHALOGRAM Name: JAMA TERRELL Deidre Room #: 427-P [facility] IN M.R.#: [id number] ������������������ Admission: 12/19/18 ������������������ Attend Phys: Solis Juárez MD Discharge: ������������������ Date of : 61 Report #: [id number] ����������������������������������������������������������������� [id number] THIS REPORT FOR: //name// CC: Solis Lambert DATE OF SERVICE: 12/24/2018 This patient is being evaluated for hypoxic encephalopathy. EEG was done by placing the electrode by standard 10-20 system of electrode placement. Both referential and sequential montages were used for recording. Background activity in this patient's EEG is about 6-7 Hz and 30 microvolt, it fluctuates. Triphasic waves appeared to be present in the frontal area. Photic stimulation is unremarkable. IMPRESSION: This is a severely abnormal EEG, which will be consistent with a diagnosis of encephalopathy. There does not appear to be a well-defined epileptiform activity, but that cannot be fully excluded. It might be desirable to repeat the interval EEG to clarify that aspect of EEG. EEG does appear to be consistent with severe encephalopathy as indicated earlier. However, a very well defined cortical activity is still present. Clinical correlation is recommended. ���������������������������������������� <ELECTRONICALLY SIGNED> ���������������������������������������� By: Song Greene MD ��������������������������������������������� 01/02/19 0952 [id number] Song Greene MD /nt
--- NOTE | 2019-01-02 09:52 | EEG ---
[facility] Renetta Jain [facility] [place] [address] ELECTROENCEPHALOGRAM Name: JAMA TERRELL Room #: 427-P ADM IN M.R.#: [id number] ������������������ Admission: 12/19/18 ������������������ Attend Phys: Solis Juárez MD Discharge: ������������������ Date of : 61 Report #: [id number] ����������������������������������������������������������������� [id number] THIS REPORT FOR: //name// CC: Solis Lambert DATE OF SERVICE: 12/25/2018 This patient's EEG was done to compare with the EEG from yesterday. EEG was done by placing the electrode by standard 10-20 system of electrode placement. Both referential and sequential montages were used for recording. Background activity in this patient's EEG is about 7-8 Hz and 30 microvolt. This fluctuate and does become a little bit slower, which may indicate drowsiness. Photic stimulation was unremarkable. Throughout the record, the patient does appear to be showing high voltage sharper activity arising predominantly from the frontal area. They do not look like triphasic waves all the time, although some of them are triphasic waves. IMPRESSION: This is an abnormal EEG, which still demonstrates finding consistent with generalized encephalopathy. That finding appeared to be slightly better today. The patient's EEG also appeared to be demonstrating sharp and spike-like activity. That may represent some seizure activity. Consideration should be given either a trial with anticonvulsant and then repeating the EEG in about 48 hours or continue to monitor the EEG 24-hour. Personally, I will favor giving a trial with anticonvulsants depending upon the patient's clinical condition. ���������������������������������������� <ELECTRONICALLY SIGNED> ���������������������������������������� By: Song Greene MD ��������������������������������������������� 01/02/19 0952 [id number] Song Greene MD /nt
--- NOTE | 2019-01-02 11:52 | NUR ---
ASSUMED CARE AT 0700, SHIFT ASSESMENT DONE, VSS, NPO SINCE LAST NIGHT. WENT FOR A TUNNELED DIALYSIS CATHETER PLACEMENT THIS AM. ATE SOME BREAKFAST, TOOK MORNING MED. WENT TO DIALYSIS AT 1100. WILL CONTINUE TO ASSESS AND ASSIST WITH ADLs NEEDED.
[2019-01-02 13:10] LABS: HEP B SURFACE Ab(ANTI-HBS Non Reactive (()); HEPATITIS B SURFACE AG Negative (Negative)
--- NOTE | 2019-01-02 14:31 | NUR ---
A 53 YR OLD FEMALE WAS TRANSFERRED TO THE UNIT ON 01/01/19. PATIENT WAS PLACED ON NPO STATUS AND MEDICATIONS WERE HELD DUE TO THE ORDERED IR PROCEDURE. 821, PATIENT WAS TRANSPORTED TO IR FOR A DIALYSIS PORT INSERTION. WHILE IN IR, PATIENT APPEARED TO BE ANXIOUS AND EXPERIENCED PAIN WITH THE MOVEMENT OF HER BODY. 939, PATIENT WAS TRANSPORTED BACK TO THE UNIT. 1040, STUDENT RN TRANSPORTED THE PATIENT TO DIALYSIS.
--- NOTE | 2019-01-02 14:36 | NUR ---
I have reviewed and concur with student documentation.
[2019-01-02 14:48] VITALS: BP 110/71
[2019-01-02 17:36] VITALS: BP 133/82
[2019-01-02 19:25] VITALS: BP 107/86
[2019-01-03 04:10] VITALS: BP 120/66
--- NOTE | 2019-01-03 04:44 | NUR ---
ASSUMED CARE AT 1900, ASSESSMENT COMPLETED. PT STATES SHE HURTS, BUT UNABLE TO VERBALIZE A SPECIFIC POINT OR DESCRIBE HER PAIN; SHE HAS PAIN WITH TURNS BUT SEEMS COMFORTABLE ONCE SHE ISN'T BEING MOVED ANYMORE. NO S/S RESPIRATORY DISTRESS OR NAUSEA. LOW URINE OUTPUT THROUGH DEAN, IS BLOOD-TINGED AND DARK YELLOW. NO STOOL OVERNIGHT, BUT IS HAVING SOME CLEAR MUCOUS OUT. NO OTHER CONCERNS, WILL CONTINUE TO MONITOR.
[2019-01-03 07:31] LABS: MCH 29.8 pg (26.0-34.0); MCHC 33.6 g/dL (28.0-37.0); MCV 88.6 fL (80.0-100.0); RBC 2.24 mil/uL (4.20-5.00); RDW 14.7 % (10.5-14.5); WBC 5.8 thou/uL (4.0-11.0)
[2019-01-03 07:43] LABS: HEMATOCRIT 19.9 % (37.0-47.0); HEMOGLOBIN 6.7 gm/dL (12.0-15.0)
[2019-01-03 08:01] LABS: CALCIUM 7.8 mg/dL (8.5-10.1); CREATININE 2.5 mg/dL (0.6-1.0)
[2019-01-03 08:03] LABS: POTASSIUM 2.7 mmol/L (3.5-5.1)
[2019-01-03 08:20] VITALS: BP 135/65
--- NOTE | 2019-01-03 12:09 | NUR ---
Pt eating very poorly past several weeks and hx severe wt loss. Refusing oral supplements. May need to consider restart enteral nutrition (has hx PEG). Will start calorie count to confirm po intake adequacy.
--- NOTE | 2019-01-03 13:41 | NUR ---
FAXED CLINICAL UPDATE TO [facility] LEFT MSG WITH [facility] IN ADM. THAT PT NOT DISCHARGING TODAY. DCP TO FOLLOW.
[2019-01-03 16:27] VITALS: BP 151/64
--- NOTE | 2019-01-03 16:52 | NUR ---
ASSUMED CARE AT 0700, SHIFT ASSESSMENT DONE, VSS. PATIENT WAS REFUSING MEDS INITIALLY BUT AGREED TO TAKE THEM AFTER TRYING FOR ALMOST 20 MINUTES. DENIES ANY APPARENT PAIN. Q2 TURNS. DID NOT EAT BREAKFAST OR LUNCH. DRANK 2/3 OF THE NEPRO DRINK. POTTASIUM THIS AM WAS2.9, DR MENDEZ INFORMED, ON ELECTROLYE PROTOCOL, DR MENDEZ INDICATED JUST TO GIVE HER ONE DOSE OF 20 MEq OF POTTASIUM, SEE eMAR. HGB WAS LOW AT 6.7, HCT CRTICALLY LOW, DR MENDEZ INFORMED; INDICATED WE WILL KEEP OBESRVING AND TRANSFUSE HER WITH 2 UNITS OF PRBC DURING DIALYSIS. DR HATFIELD HAD PUT IN A ORDER FOR 1 UNIT OF PRBC BUT WAS CANCELLED AFTER MENTIONING ABOUT DR ALFONSO'S ORDER. WILL CONTINUE TO ASSESS AND ASSIST WITH ADLs NEEDED.
[2019-01-03 20:50] VITALS: BP 112/59
[2019-01-04 04:15] VITALS: BP 113/59
--- NOTE | 2019-01-04 05:09 | NUR ---
ASSUMED CARE AT 1900, ASSESSMENT COMPLETED. PT MINIMALLY INTERACTIVE, WOULD OCCASIONALLY SPEAK OR SMILE AT STAFF. PT REFUSED ANY DRINKS OR SNACKS DESPITE MULTIPLE ATTEMPTS. PT HAS 2+ PITTING EDEMA TO THIGHS. C/O BODY ACHES ESPECIALLY WITH REPOSITIONS. VERY LOW URINE OUTPUT, WHICH WAS TEA-COLORED AND BLOOD-TINGED IN DEAN. LARGE AMOUNT OF MUCOUS PRODUCTION, BUT UNCLEAR IF IT IS BOWEL OR VAGINAL DISCHARGE. NO OTHER CONCERNS, WILL CONTINUE TO MONITOR.
[2019-01-04 06:36] LABS: MCH 29.7 pg (26.0-34.0); MCHC 32.8 g/dL (28.0-37.0); MCV 90.5 fL (80.0-100.0); RBC 2.18 mil/uL (4.20-5.00); WBC 5.4 thou/uL (4.0-11.0)
[2019-01-04 06:39] LABS: HEMATOCRIT 19.7 % (37.0-47.0)
[2019-01-04 06:40] LABS: HEMOGLOBIN 6.5 gm/dL (12.0-15.0)
[2019-01-04 06:51] LABS: CALCIUM 7.9 mg/dL (8.5-10.1); CREATININE 3.1 mg/dL (0.6-1.0)
[2019-01-04 06:55] LABS: POTASSIUM 2.7 mmol/L (3.5-5.1)
--- NOTE | 2019-01-04 07:32 | NUR ---
CALLED PATIENTS DAUGHTER TO GET VERBAL CONSENT FOR 2 UNITS BLOOD DURING DIAYLSIS. SPOKE WITH AMANDA TERRELL OBTAINED VERBAL PERMISSION XS 2 NURSES.
[2019-01-04 07:50] VITALS: BP 134/66
--- NOTE | 2019-01-04 08:24 | NUR ---
PT TO DIAYLSIS AT THIS TIME
--- NOTE | 2019-01-04 10:27 | NUR ---
Calorie count day 1 indicating negligible amount of food/refusal. Recommend address decision on further plan of care to resume enteral nutrition via dobhoff or replace the PEG.
--- NOTE | 2019-01-04 10:53 | NUR ---
case discussed with dr MENDEZ AND HE WANTS A PROMISE EVAL. S/W MARYELLEN MCGREGOR LIASION AND SHE WILL REVIEW PT'S INFO FOR ADMISSION.
--- NOTE | 2019-01-04 13:31 | NUR ---
PT BACK FROM DIAYLSIS THEY REMOVED 1 LITER
--- NOTE | 2019-01-04 18:30 | NUR ---
PT RESTING IN BED AT THIS TIME. HAD DIAYLSIS TODAY 1 LITER OFF. DEAN INTACT WITH SMALL AMOUNT OF TEA COLORED URINE IN BAG. NO PAIN OR RESP DISTRESS NOTED.
[2019-01-04 20:50] VITALS: BP 120/62
--- NOTE | 2019-01-05 03:28 | NUR ---
ASSUMED PT CARE 1899. PT ALERT AND ORIENTED 1-2. REASSESSMENT COMPLETED. DEAN IN PLACE. PT DENIES N/V AT THIS TIME. PT HAS GENERALIZED PAIN. PRAFO BOOTS AND SCDS IN PLACE. RIJ DRESSING C/D/I. R CHEST TESSEO DRESSING C/D/I. PT CALL LIGHT AND PERSONAL BELONGINGS WITHIN REACH. WILL CONTINUE POC UNTIL EOS.
[2019-01-05 04:33] VITALS: BP 143/81
[2019-01-05 06:38] VITALS: BP 143/81
[2019-01-05 08:32] VITALS: BP 129/72
[2019-01-05] MEDS ORDERED: AUGMENTIN 500-1 EACH PO (11:02)
[2019-01-05] MEDS ORDERED: COREG6.25 MG PO (11:02)
[2019-01-05] MEDS ORDERED: PEPCID20 MG PO (11:03)
--- NOTE | 2019-01-05 12:23 | NUR ---
S/W SAMANTHA ADM AT [facility] AND INFORMED PT WILL NEED TO RE-START HEMODIALYSIS ON TUESDAY THERE. SHE SAYS THEY ARE ABLE TO ACCEPT PT LONG [facility] ACCEPTS WELL. FAXED FACE SHEET, H&P, RACK PUSHER CONSULT, DC SUMMARY, NEPHROLOGY PROGRESS NOTES, LABS, EXK, CXR WITH LINE PLACEMENT INFO TO [facility]TA[facility] BK.
--- NOTE | 2019-01-05 15:23 | NUR ---
ASSUMED PT CARE AT 0700. ASSESSMENT COMPLETED AND IS CHARTED. VSS. PT IS AWAKE, ALERT/ORIENTED TO PERSON/PLACE. DENIES PAIN. SKIN TO COCCYX AND HEALS ARE INTACT, BARRIER CREAM APPLIED. TURNED PT TO RIGHT SIDE. CENTRAL LINE TO RIGHT JUGULAR IS ASYMPTOMATIC. TESSIO LINE FOR DIALYSIS IS ASYMPTOMATIC. DEAN TO DD WITH DARK YELLOW URINE. WILL CONTINUE WITH CURRENT CARE.
--- NOTE | 2019-01-05 15:58 | NUR ---
S/W ADAL AT [place] AND SHE NNEDS TO CONFIRM WITH [facility] THAT THEY HAVE A CHAIR TIME BEFORE THEY ACCEPT PT BACK. I HAD TRIED TO REACH SAMANTHA AGAIN AT [facility] AND SHE WAS GONE FOR THE DAY AT 1530. ADAL SAYS SHE WILL TRY TO REACH SOMEONE TOO. S/W CENTRAL INTAKE AND THEY HAVE RECEIVED PT'S PAPERWORK BUT NO RESPONSE FROM THEM EITHER AT THIS TIME.
--- NOTE | 2019-01-05 16:30 | NUR ---
RECEIVED CALL BACK FROM [facility] AND THEY MUST HAVE A TB SKIN TEST WITHIN 30 DAYS BEFORE THEY WILL ACCEPT PT TO THEIR CLINIC. RN NOTIFIED AND SHE WILL CALL DR FOR ORDERS & ADMINISTER IT TODAY SO RESULTS WILL BE AVAILABLE ON TUESDAY.
[2019-01-05 23:09] VITALS: BP 122/63
--- NOTE | 2019-01-06 03:17 | NUR ---
ASSUMED PT CARE 1900. PT ALERT TO SELF AND SITUATION. REASSESSMENT COMPLETE. PT DENIES N/V. DEAN IN PLACE. IJ DRESSING C/D/I. PT CALL LIGHT WITHIN REACH. WILL CONTINUE POC UNTIL EOS.
[2019-01-06 05:21] VITALS: BP 141/74
[2019-01-06 07:43] LABS: HEMATOCRIT 28.9 % (37.0-47.0)
[2019-01-06 07:47] LABS: HEMOGLOBIN 9.7 gm/dL (12.0-15.0)
[2019-01-06 07:59] LABS: ALBUMIN 1.5 g/dL (3.4-5.0); CALCIUM 7.9 mg/dL (8.5-10.1); CREATININE 3.1 mg/dL (0.6-1.0); PHOSPHORUS 2.4 mg/dL (2.5-4.9); POTASSIUM 3.1 mmol/L (3.5-5.1)
[2019-01-06 08:00] VITALS: BP 146/80
--- NOTE | 2019-01-06 15:03 | NUR ---
Assumed pt care at 7am.Pt in bed resting without c/o. Left for hemodialysis at the beginning of shift of shift and returned to room at noon.Per scrap metal burner report, 2.3liter if fluid was takne off today.Pt vss but temp was elevated. Tylenol po given.Dr Ugarte here and order noted.Pt always c/o cold due to anemia.Warm blanket given and room temp adjusted.Will continue to monitor.
[2019-01-06 16:48] VITALS: BP 143/66
[2019-01-06 20:46] VITALS: BP 109/73
[2019-01-07 04:05] VITALS: BP 118/65
--- NOTE | 2019-01-07 08:53 | NUR ---
PT LYING IN BED. DENIES PAIN. DENIES NAUSEA. RESTING COMFORTABLY. NO NEEDS VOICED. CALL LIGHT WITHIN REACH. WILL CONTINUE TO PROVIDE FREQUENT OBSERVATION.
--- NOTE | 2019-01-07 11:42 | NUR ---
Assumed pt care at 7am.Pt in bed resting.Assessment completed.c/o generalized pain.Tylenol po given with am meds with relief.Dr Parker and Manasa here,order noted.Partial bath �given.Turned and repositioned q2h in bed for comfort.Will continue to monitor.
[2019-01-07 20:00] VITALS: BP 119/72
--- NOTE | 2019-01-08 01:37 | NUR ---
ASSESSMENT COMPLETED AT THE START OF SHIFT.PT ALERT WITH CONFUSION PT REPOSITIONED WHILE IN BED.PT HAS ONE LOOSE STOOL EARLIER IN THE SHIFT,PERICARE GIVEN WITH BARRIER CREAM.DEAN TO DEPENDENT DRAINAGE,DARK BROWN URINE NOTED.PO FLUIDS OFFERED.PT DECLINED.PRAFO BOOTS AND SCD IN PLACE.RFA FISTULA POSITIVE FOR THRILL AND BRUIT.FALL PRECAUTIONS IN PLACE.CALL LIGHT WITHIN REACH.
--- NOTE | 2019-01-08 05:00 | NUR ---
ASSESSMENT COMPLETED.PT REPOSITIONED WHILE IN BED.POOR APPETITE NOTED.OFFERED PO FLUIDS BUT, PT DECLINED.DEAN TO DEPENDENT DRAINAGE WITH MIN DARK BROWN OUTPUT NOTED.PRAFO BOOTS AND SCD'A ON BLE.PT HAD AN EPISODE OF NAUSEA,NO EMESIS NOTED,JUST SPUTUM.HOB ELEVATED FOR COMFORT.FALL PRECAUTIONS IN PLACE.CALL LIGHT WITHIN REACH.
[2019-01-08 05:05] VITALS: BP 129/68
[2019-01-08 07:11] LABS: % SATURATION 66 % (20-39); IRON 25 ug/dL (50-170); TIBC 38 ug/dL (250-450)
[2019-01-08 08:10] VITALS: BP 130/66
--- NOTE | 2019-01-08 08:53 | NUR ---
ASSESMENT COMPLETED. VSS. CONFUSED. OX1. C/O PAIN. NO NOTED SOA. NO NV. ASSISTED WITH FEEDING. Q2 TURNS. MEDS GIVEN ORDERED- TOELRATED WELL. WILL CONT. TO MONITOR.
--- NOTE | 2019-01-08 12:35 | NUR ---
FAXED HEPATITIS LABS AND TB SKIN TEST TO [facility] CENTRAL INTAKE AND CONFIRMED RECEIPT WITH THEM. S/W SAMANTHA AT [facility] AND PT WILL BE ON 2ND SHIFT. SHE SAYS THEY CAN ACCEPT PT. S/W DR SKINNER AND HE SAYS PT CAN WAIT TILL TUE FOR START OF DIALYIS, NO NEED FOR SHORT RUN TODAY. ASKED DC HEAD OF GLOBAL STRATEGIC PARTNERSHIPS TO FIANLIZE DC FOR TODAY.
--- NOTE | 2019-01-08 13:49 | NUR ---
PT. DISCHARGING TODAY TO [facility]. FAXED DC ORDERS/SUMMARY TO FACILITY SPOKE WITH HUGH IN ADM. SHE RECEIVED DC ORDERS/SUMMARY AND SHE WILL NOT BE ABLE TO SET UP TRANSPORT VIA STRETCHER SO [facility] ARRANGED TRANSPORTATION THROUGH [facility] TRIP #[id number] FOR ANYTIME BETWEEN [phone]. NOTIFIED FAMILY DTR (AMANDA) TRIED NOTIFYING SON COULD NOT REACH. UNIT NOTIFIED AND CHART COPY PER US. RN TO CALL REPORT TO [phone].
--- NOTE | 2019-01-08 13:51 | NUR ---
POOR APPETITE. PLANS TO DC BACK TO [place] THIS AFTERNOON.
--- NOTE | 2019-01-08 16:23 | NUR ---
DC ORDERS FAXED TO [facility].
--- NOTE | 2019-01-08 18:21 | NUR ---
CALLED [facility] FOR PT STILL IN UNIT. THEY STATED PT NOT ON LIST- TRIP # PROVIDED. [facility] TO PICK PT IN 1- 2 HOURS FROM NOW.
[2019-01-08 18:30] VITALS: BP 143/67
--- NOTE | 2019-01-08 18:40 | NUR ---
JEF AND DIANNE JOHN ORDERED.
[2019-01-08 19:11] VITALS: BP 127/68
--- NOTE | 2019-01-08 20:59 | NUR ---
PT WAS DISCHARGED DURING REPORT AND WAS PICKED UP BY AMBULANCE AT [facility] IN A STABLE CONDITION BACK TO [place].VS AT DC ARE BP 127/68,O2 SAT 95%, R 16,P 80,T 98.4.
== END 2019-01-08 19:15 | DRG 673 ==
LOC: ER 09:57 → 4W 13:56 → EROBS 13:56 → 4W 15:05 → ICU 12-23 10:00 → 3W 12-26 13:50 → 4E 01-01 22:45
PROVIDERS: Hospitalist; Internal Medicine; Internal Medicine Nephrology; Physician Assistant; Psychiatry & Neurology Neurology; Student in an Organized Health Care Education/Training Program; ADMIT Internal Medicine Geriatric Medicine
PROC: 02HV33Z Insertion of Infusion Device into Superior Vena Cava, Percutaneous Approach (ICD-10-PCS; principal; 2018-12-19)
PROC: B5181ZA Fluoroscopy of Superior Vena Cava using Low Osmolar Contrast, Guidance (ICD-10-PCS; principal; 2018-12-19)
PROC: B548ZZA Ultrasonography of Superior Vena Cava, Guidance (ICD-10-PCS; principal; 2018-12-19)
PROC: 30233N1 Transfusion of Nonautologous Red Blood Cells into Peripheral Vein, Percutaneous Approach (ICD-10-PCS; 2018-12-23)
PROC: 5A1D70Z Performance of Urinary Filtration, Intermittent, Less than 6 Hours Per Day (ICD-10-PCS; 2018-12-31)
PROC: 0JH63XZ Insertion of Tunneled Vascular Access Device into Chest Subcutaneous Tissue and Fascia, Percutaneous Approach (ICD-10-PCS; 2019-01-02)
PROC: 5A1D70Z Performance of Urinary Filtration, Intermittent, Less than 6 Hours Per Day (ICD-10-PCS; 2019-01-02)
PROC: B51M1ZA Fluoroscopy of Right Upper Extremity Veins using Low Osmolar Contrast, Guidance (ICD-10-PCS; 2019-01-02)
PROC: 05HY33Z Insertion of Infusion Device into Upper Vein, Percutaneous Approach (ICD-10-PCS; 2019-01-02)
PROC: 5A1D70Z Performance of Urinary Filtration, Intermittent, Less than 6 Hours Per Day (ICD-10-PCS; 2019-01-04)
PROC: 5A1D70Z Performance of Urinary Filtration, Intermittent, Less than 6 Hours Per Day (ICD-10-PCS; 2019-01-06)
DX: N17.9 Acute kidney failure, unspecified (principal); E43 Unspecified severe protein-calorie malnutrition; I13.2 Hypertensive heart and chronic kidney disease with heart failure and with stage 5 chronic kidney disease, or end stage renal disease; N39.0 Urinary tract infection, site not specified; G93.40 Encephalopathy, unspecified; E87.1 Hypo-osmolality and hyponatremia; I42.5 Other restrictive cardiomyopathy; N18.6 End stage renal disease; D86.9 Sarcoidosis, unspecified; G72.9 Myopathy, unspecified; I27.20 Pulmonary hypertension, unspecified; R62.7 Adult failure to thrive; E86.0 Dehydration; D63.1 Anemia in chronic kidney disease; D63.8 Anemia in other chronic diseases classified elsewhere; I48.0 Paroxysmal atrial fibrillation; K21.9 Gastro-esophageal reflux disease without esophagitis; E78.5 Hyperlipidemia, unspecified; E87.6 Hypokalemia; K52.9 Noninfective gastroenteritis and colitis, unspecified; E03.9 Hypothyroidism, unspecified; Z68.29 Body mass index [BMI] 29.0-29.9, adult; Z95.0 Presence of cardiac pacemaker; Z87.11 Personal history of peptic ulcer disease; Z99.2 Dependence on renal dialysis; Z79.899 Other long term (current) drug therapy; Z88.8 Allergy status to other drugs, medicaments and biological substances
CPT/HCPCS: 10045; 10078; 10779; 10783; 10879; 32100

== ENCOUNTER 2020-01-14 15:53 | Inpatient (IN) | payer OTHER ==
[~2020-01-14] VITALS: Ht 157.5 cm; Wt 50.4 kg
[2020-01-14 15:53] VITALS: BP 124/63
[~2020-01-14 15:53] MED LIST changes: +AMOX TR-K CLV1 EAC3 PO; +AUGMENTIN 500-1 EACH PO; +CARDIZEM CD120 MG PO; +CONSTULOSE10 GM/15 M PO; +COREG6.25 MG PO; +GABAPENTIN 100100 MG PO; +IPRATROPIU0.2 MG/1 M INH; +KLOR-CON20 ME1 PO; +LASIX 40 MG TAB40 M2 PO; +LEXAPRO 10 MG T10 M2 PO; +MAALOX ADVANCE355 M1 PO; +MUCINEX600 MG PO; +ONDANSETRON HCL4 M2 PO; +PEPCID20 MG PO; +POTASSIUM20 PO; +PREDNISONE 5 MG5 M1 PO; +PULMICORT0.5 MG/22 INH; +REMERON15 MG PO; +SENNA8.6 MG PO; +SIMETHICON CHEW80 M1 PO; +TRAMADOL 50 MG50 MG PO; +TYLENOL325 MG PO; +VITAMIN D2000 UNIT PO
[2020-01-14 16:39] LABS: ABSOLUTE NEUTROPHILS 3.1 thou/uL (1.4-8.2); BASOPHILS 1.1 % (0.0-2.0); EOSINOPHILS 1.6 % (0.0-3.0); HEMOGLOBIN 10.9 gm/dL (12.0-15.0); LYMPHOCYTES 22.1 % (24.0-44.0); MCHC 31.2 g/dL (28.0-37.0); MCV 99.4 fL (80.0-100.0); MONOCYTES 6.5 % (1.0-8.0); PLATELET COUNT 244 thou/uL (150-400); POLYS 68.7 % (36.0-66.0); RBC 3.52 mil/uL (4.20-5.00); WBC 4.5 thou/uL (4.0-11.0)
[2020-01-14 16:44] LABS: ALBUMIN 2.5 g/dL (3.4-5.0); CALCIUM 11.2 mg/dL (8.5-10.1); CREATININE 6.2 mg/dL (0.6-1.0); TOTAL BILIRUBIN 0.6 mg/dL (<0.1-1.0); TOTAL PROTEIN 8.1 g/dL (6.4-8.2)
[2020-01-14 16:45] LABS: POTASSIUM 6.6 mmol/L (3.5-5.1)
[2020-01-14 18:10] VITALS: BP 125/64
[2020-01-14 19:15] VITALS: BP 125/60
[2020-01-14 19:33] LABS: ALBUMIN 2.6 g/dL (3.4-5.0); TOTAL PROTEIN 7.8 g/dL (6.4-8.2)
[2020-01-14 19:36] LABS: TSH 1.711 uIU/mL (0.358-3.740)
[2020-01-14 20:07] VITALS: BP 175/64
--- NOTE | 2020-01-14 21:27 | NUR ---
PT LIVING AT [facility]. PER ED REPORT PT HAD COUGH FEVER WHEN GOING TO DIALYSIS THEY DECLINED TO TREAT HER AND HAD HER GO TO THE ED. PT ALERT TO SELF AND SITUATION. PT DID NOT KNOW THE NAME OF HER FACILITY SHE THOUGHT SHE WAS LIVING IN [place]. PT DID NOT KNOW THE NAME OF THE HOSPITAL OR TODAYS DATE. PT DENIED KNOWING SHE HAS PNEUMONIA. DRY COUGH NOTED. PT NOT ABLE TO MOVE SELF FROM CART TO BED, 2 PERSON TRANSFER TO BED. PT REPORTS SITTING IN W/C AT FACILITY. LUNGS WITH CRACKLES. ZOE FISTULA, RFA IV. IV ANTIBIOTICS RUNNING. SCDS ON. FEMALE EXT CATHETER IN PLACE. STAGE 2 WOUNDS ON COCCYX PHOTO TAKEN. PT REQUESTING FOOD AND PROVIDED. BED ALARM ON.
[2020-01-15 03:53] VITALS: BP 137/68
[2020-01-15 09:25] VITALS: BP 127/65
--- NOTE | 2020-01-15 10:22 | NUR ---
WOUND CONSULT; THE PATIENT IS IN COVID-[address] GARCIA WE MAY ASSESS VIA PICTURES. DISCUSSED WITH THE PATIENTS RN. ASKED IF THE PICTURES ARE ACCURATE AND SHE SAID YES. THE WOUNDS LOOKED MORE SCAR-LIKE. RECOMMENDATIONS; SAMRA DAILY/PRN DISCUSSED WITH RN, SUPPLIED SAMRA
[2020-01-15 10:24] LABS: HEMATOCRIT 32.8 % (37.0-47.0); HEMOGLOBIN 10.4 gm/dL (12.0-15.0); MCH 30.7 pg (26.0-34.0); MCHC 31.7 g/dL (28.0-37.0); RBC 3.38 mil/uL (4.20-5.00); RDW 17.5 % (10.5-14.5); WBC 4.4 thou/uL (4.0-11.0)
[2020-01-15 10:34] LABS: CALCIUM 10.8 mg/dL (8.5-10.1); CREATININE 6.3 mg/dL (0.6-1.0); MAGNESIUM 2.3 mg/dL (1.8-2.4); POTASSIUM 5.8 mmol/L (3.5-5.1)
--- NOTE | 2020-01-15 13:21 | NUR ---
Received awake on bed. A+Ox2- self and place. On room air. Vital signs stable. On Special precautions tray, assisted in eating and drinking, compliant with ordered supplement; with good appetite. On heart monitoring, strips obtained and attached to chart; no complaints of chest pain, crushing sensation or heaviness. With noted crackles upon assessment- physician aware, with breathing treatments and antibiotics ordered. Dialysis ordered, usual schedule is , but pt did not have her scheduled dialysis yesterday, Dr Parker ordered today; dialysis port at R upper arm, no dressing present; no signs of infection noted, no bleeding noted as well. With external ruth in place, output measured and recorded accordingly; checked frequently and changed as needed. With Yue WOO. With wound at her buttocks; wound team assessed thru photos, Z guard prescribed and applied as ordered. Dialysis nurse at bedside. Assisted in ADLs, re-oriented from time to time. Complained of pain, no PRN pain meds ordered- Dr Tim informed and prescribed meds- given. Pt placed on low airloss mattress, turned frequently. Falls bundle in place. Dr Tim informed re: recent potassium level of 5.8, Creatinine of 6.3, informed him that pt currently having dialysis now. To continue monitoring patient.
--- NOTE | 2020-01-15 14:39 | NUR ---
INITIAL ASSESSMENT: Received consult. SIRI reviewed chart and spoke with nursing and attending physician. Pt is in Enhanced Isolation to r/o COVID-19. Pt with hx of ESRD and is on chronic dialysis at [facility] . SIRI faxed clinical info to [facility] for review and spoke with patient coordinator front desk. SIRI spoke with pt's dtr, Svetlana, via phone. Introduced role of SW. Pt is normally w/c bound. Pt has been at [facility] for about 2-3 years. Pt has been to [facility] in the past. SIRI explained to pt's dtr that COVID-19 results will take a few days to receive. Pt's dtr verbalized understanding and confirms plan is for pt to return to [facility] when medically stable. SIRI is following to assist as needed with discharge planning.
[2020-01-15 17:12] VITALS: BP 154/68
--- NOTE | 2020-01-15 19:19 | NUR ---
ASSUMED CARE OF PT AFTER BEDSIDE REPORT WITH JUAN GOMEZ, PT RESTING IN BED WITH NO S/S OF DISTRESS AT THIS TIME, PT IS ASKING FOR CANDY, BUT HAS NO OTHER COMPLAINTS OR QUESTIONS
[2020-01-16 00:07] VITALS: BP 140/84
[2020-01-16 04:30] VITALS: BP 140/87
[2020-01-16 06:02] LABS: HEMATOCRIT 32.3 % (37.0-47.0); HEMOGLOBIN 10.2 gm/dL (12.0-15.0); MCH 30.9 pg (26.0-34.0); MCHC 31.6 g/dL (28.0-37.0); RBC 3.29 mil/uL (4.20-5.00); WBC 4.4 thou/uL (4.0-11.0)
[2020-01-16 06:27] LABS: CALCIUM 9.2 mg/dL (8.5-10.1)
[2020-01-16 06:33] LABS: POTASSIUM 3.8 mmol/L (3.5-5.1)
[2020-01-16 07:08] LABS: HEP B SURFACE Ab(ANTI-HBS Non Reactive (()); HEPATITIS B SURFACE AG Negative (Negative)
[2020-01-16 08:20] VITALS: BP 116/63
--- NOTE | 2020-01-16 15:01 | NUR ---
CARE TEAM INDICATED THAT THEY ARE AWAITING TO SPECIATE BACTERIA CROWN FROM CULTURES. CLEARED FOR DC FROM RENAL STANDPOINT. PLAN IS FOR PT TO RETURN TO [place] ONCE MEDICALLY STABLE. CM TO FOLLOW INDICATED WITH DC PLANNING.
[2020-01-16 16:14] VITALS: BP 127/75
[2020-01-16 17:45] VITALS: BP 127/75
--- NOTE | 2020-01-16 20:38 | NUR ---
PT CARE ASSUMED AT 0700. A&Ox3. DIALYSIS PT ON MO,WE,FR. DIALYSES TODAY. MAGNESIUM GIVEN PER ELECTROLYTE PROTOCOL MAGNESIUM AT 1.3. LOW AIRLOSS BED. WHEELCHAIR BOUND BUT GOT UP WITH PT TO THE RECLINER TODAY AND INSTANTLY COMPLAINED ABOUT PAIN ON HER BOTTOM. PT IS A SET UP TO EAT. Q2 TURNS. R. SIDE FORBIDDEN. IV PATENT WITH NO REDESS OR EDEMA. FALL PROTOCOL IN PLACE. CALL LIGHT IN REACH. WILL CONTINUE TO MONITOR.
--- NOTE | 2020-01-17 02:55 | NUR ---
ASSUMED PT CARE AT APPROX 2330.PT ASLEEP AT THE TIME.MEDS ADMINISTERED ORDERED.NEW IV SITE TO HER L BREAST,PLACED BY THE SALES AND MERCHANDISING ASSOCIATE.PT REF TO BE REPOSITIONED WHILE IN BED,EDUCATION GIVEN.R UPPERARM DIALYSIS CATH POSITIVE FOR THRILL AND BRUIT,LIMB ALERT TO HER R ARM.PT C/O PAIN PN HER ABD AND BUTTOCK,MANAGED WITH MED.PT RESTING ON HER BED AT THIS TIME.FALL PRECAUTIONS IN PLACE,CALL LIGHT WITHIN REACH.
[2020-01-17 05:14] VITALS: BP 130/79
[2020-01-17 06:11] LABS: HEMATOCRIT 34.4 % (37.0-47.0); HEMOGLOBIN 10.8 gm/dL (12.0-15.0); MCH 30.7 pg (26.0-34.0); MCHC 31.4 g/dL (28.0-37.0); MCV 97.7 fL (80.0-100.0); RBC 3.52 mil/uL (4.20-5.00); RDW 17.7 % (10.5-14.5); WBC 3.8 thou/uL (4.0-11.0)
[2020-01-17 06:24] LABS: CREATININE 3.6 mg/dL (0.6-1.0); MAGNESIUM 1.9 mg/dL (1.8-2.4)
[2020-01-17 07:00] VITALS: BP 143/68
--- NOTE | 2020-01-17 08:12 | NUR ---
WOUND CARE F/U; LATE ENTRY THIS PATIENT WAS SEEN YESTERDAY AND PICTURES WERE TAKEN. THE WOUNDS TO THE BUTTOCKS BILATERALLY WERE A FRICTION VS PRESSURE ETIOLOGY. WE HAVE BEEN USING ZGUARD WHICH REMAINS APPROPRIATE. THE PATIENT IS ABLE TO TURN HERSELF AND WAS ENCOURAGED TO DO SO. THE PATIENT ALSO IS ON A LOW AIR LOSS MATTRESS PUMP. RECOMMENDATIONS; CONTINUE CURRENT ORDERS DISCUSSED WITH RN
--- NOTE | 2020-01-17 13:54 | NUR ---
FAXED CLINICAL UPDATE TO [facility] SPOKE WITH HUGH IN ADM. SHE RECEIVED UPDATE. DP TO FOLLOW.
[2020-01-17 16:19] VITALS: BP 116/70
--- NOTE | 2020-01-17 18:46 | NUR ---
Assumed pt care this am, only alert to self. Refused to be turned every 2 hours and complains of pain on her sacrum but refuses for buttocks to be seen and treated. Pt stayed on the recliner for most of the day. VS stable. Pain is managed with medicationn, pt agress she can turn herself on the bed to reposition to relieve her sacral pain. Dialysis is scheduled MW. As per Dr. Tim awaiting feddback from ID d/t gram positive bacteria found in the blood.Placed on isolation, POC followed, no signs or verbalizations of distress have been noted. Pt claims to be allergic to steel and any part of her body that is in close proximity experience numbness.
[2020-01-17 20:10] VITALS: BP 116/64
[2020-01-18 03:50] VITALS: BP 117/61
--- NOTE | 2020-01-18 03:51 | NUR ---
ASSUMED PT CARE AT APPROX 1900.PT C/O PAIN ON HER BUTTOCK,MANAGED WITH MED.PT REF TO BE REPOSITIONED,EDUCATION GIVEN.PT STATED THAT SHE HAS NOT HAD A BM FOR SOME DAYS NOW,MIRALAX GIVEN,NO BM NOTED SO FAR.DIALYSIS CATH POSITIVE FOR THRILL AND BRUIT.PT RESTING ONN HER BED AT THIS TIME.FALL AND ISOLATION PRECAUTIONS IN PLACE,CALL LIGHT WITHIN REACH.
[2020-01-18 07:31] VITALS: BP 135/63
[2020-01-18 08:12] LABS: HEMATOCRIT 34.7 % (37.0-47.0); HEMOGLOBIN 10.8 gm/dL (12.0-15.0); MCH 30.6 pg (26.0-34.0); MCHC 31.2 g/dL (28.0-37.0); MCV 98.1 fL (80.0-100.0); RBC 3.53 mil/uL (4.20-5.00); RDW 17.2 % (10.5-14.5); WBC 4.6 thou/uL (4.0-11.0)
[2020-01-18 08:20] LABS: CALCIUM 10.2 mg/dL (8.5-10.1); POTASSIUM 4.7 mmol/L (3.5-5.1)
[2020-01-18 08:22] LABS: CREATININE 4.9 mg/dL (0.6-1.0)
--- NOTE | 2020-01-18 13:55 | NUR ---
SW reviewed chart and spoke with nursing and attending physician. ID consulted today. Awaiting recommendations for abx at time of discharge. Pt had dialysis earlier today. Pt may be ready for discharge back to [facility] over the weekend. SIRI left voice message for Deena in admissions to notify. SIRI faxed clinical updates for review. SIRI attempted to contact [facility] dialysis clinic to provide update. No answer. SIRI faxed [facility] updated info and notified of possible weekend discharge. Staff to contact [facility] to coordinate discharge if pt is medically stable for discharge. Finalized discharge orders/summary will need to be faxed when available. Chart will need to be copied and nursing will need to call report. SW is available as needed. [facility]--
[2020-01-18 15:26] VITALS: BP 113/67
--- NOTE | 2020-01-18 16:16 | NUR ---
Assumed pt care this am, pt is only alert to self. Would complain of pain and had thought that she was still on a bedpan, when reminded that she was not and showed her that bed alvarado on the windowsil pt stopped complaining and asking for pain meds. Pt is very forgetful did not recall that she had dialysis this am. ID on the case for bactricimia. Dialysis cath postivie for thrill and bruit, fall precautions in place. POC followed, not signs or verbalizations of distress have been noted.
[2020-01-18 20:12] VITALS: BP 129/43
--- NOTE | 2020-01-19 02:58 | NUR ---
PT CARE ASSUMED AT 1930 WITH PT IN BED.PT IS ALERT AND ORIENTED TO SELF.PT IS VERY CONFUSED.PT IS ON DIALYSIS .PT IS ON CONTACT PRECAUTION FOR STAPYLOCOCCUS HOMINIS.PT HAS A RIGHT AV STUNT.IV ACCESS ON RT CHEST.PT C/O PAIN AND GIVEN HYDROCODONE FOR PAIN MGT.WILL CONTINUE TO MPNITOR FOR PAIN MGT
[2020-01-19 05:37] VITALS: BP 117/53
[2020-01-19 08:52] VITALS: BP 103/47
[2020-01-19 16:08] VITALS: BP 104/49
--- NOTE | 2020-01-19 20:24 | NUR ---
Assumed pt care this am, turned every 2 hours. Pain managed with meditcation, very confused and forgetful would. Medications are tolerated well, supppliment is hardly taken , constant encouragement is required. POC followed, no signs or verbalizations of distress have been noted.
[2020-01-19 20:25] VITALS: BP 115/53
[2020-01-20 03:40] VITALS: BP 120/63
--- NOTE | 2020-01-20 05:00 | NUR ---
PT LYING IN BED. LORTAB PROVIDING PAIN RELIEF. REFUSED MULTIPLE OFFERS TO REPOSITION. RESTING COMFORTABLY. NO NEEDS VOICED. CALL LIGHT WITHIN REACH. FREQUENT OBSERVATION.
[2020-01-20 06:09] LABS: ABSOLUTE NEUTROPHILS 3.2 thou/uL (1.4-8.2); BASOPHILS 0.9 % (0.0-2.0); EOSINOPHILS 2.3 % (0.0-3.0); HEMATOCRIT 31.4 % (37.0-47.0); HEMOGLOBIN 9.9 gm/dL (12.0-15.0); LYMPHOCYTES 27.2 % (24.0-44.0); MCHC 31.6 g/dL (28.0-37.0); MONOCYTES 10.9 % (1.0-8.0); PLATELET COUNT 200 thou/uL (150-400); POLYS 58.7 % (36.0-66.0); RDW 17.3 % (10.5-14.5); WBC 5.4 thou/uL (4.0-11.0)
[2020-01-20 06:22] LABS: ALBUMIN 2.5 g/dL (3.4-5.0); CALCIUM 9.3 mg/dL (8.5-10.1); CREATININE 4.8 mg/dL (0.6-1.0); PHOSPHORUS 5.5 mg/dL (2.5-4.9)
[2020-01-20 06:25] LABS: POTASSIUM 6.5 mmol/L (3.5-5.1)
[2020-01-20 07:40] VITALS: BP 120/73
--- NOTE | 2020-01-20 08:36 | 2DMMODE ---
[facility] [place] [address] 2 D/M-MODE ECHOCARDIOGRAM Name: JAMA TERRELL Room #: 440-P ADM IN M.R.#: [id number] Admission: 01/14/20 Attend Phys: Francois Whitehead MD Discharge: Date of : 61 Report #: [id number] THIS REPORT FOR: cc: Shaheen Pinzon MD, Srinath MD Mancuso,Kelvin Matamoros MD [facility] ~ APPROVED REPORT Study performed: 01/19/2020 11:38:42 EXAM: Comprehensive 2D, Doppler, and color-flow Echocardiogram Patient Location: Bedside Room #: 440 Status: on-call BSA: 1.47 HR: 60 bpm BP: 103/47 mmHg Rhythm: NSR Other Information Study Quality: Good Risk Factors: Cardiac Risk Factors: HTN Indications Pulmonary Hypertension Dyspnea ESRD Sarcoidosis 2D Dimensions IVSd: 6.48 (7-11mm) LVOT Diam: 17.00 (18-24mm) LVDd: 45.80 mm PWd: 8.27 (7-11mm) Ascending Ao: 29.72 (22-36mm) LVDs: 29.34 (25-40mm) Aortic Root: 25.31 mm LV Single Plane 4CH: 59.88 % LV Single Plane 2CH: 51.11 % Biplane EF: 56.5 % Volumes Left Atrial Volume (Systole) Single Plane 4CH: 47.08 mL Single Plane 2CH: 51.23 mL [facility] [address] [place] [address] 2 D/M-MODE ECHOCARDIOGRAM Name: JAMA TERRELL Room #: 440-P [facility] IN ..#: [id number] Admission: 01/14/20 Attend Phys: Francois Whitehead, Discharge: Date of : 61 Report #: [id number] ESV Index: 37.00 mL/m2 Aortic Valve AoV Peak Martínez.: 1.87 m/s AO Peak Gr.: 13.98 mmHg LVOT Max P.78 mmHg LVOT Max V: 1.09 m/s ANANYA Vmax: 1.31 cm2 Mitral Valve E/A Ratio: 2.1 MV Decel. Time: 314.97 ms MV E Max Martínez.: 1.04 m/s MV A Martínez.: 0.50 m/s MV PHT: 91.34 ms IVRT: 83.04 ms TDI E/Lateral E': 14.86 E/Medial E': 13.00 Medial E' Martínez.: 0.08 m/s Lateral E' Martínez.: 0.07 m/s Pulmonary Valve PV Peak Martínez.: 1.38 m/s PV Peak Gr.: 7.65 mmHg Pulmonary Vein P Vein S: 0.70 m/s P Vein A: 0.28 m/s P Vein D: 0.27 m/s P Vein A Dur.: 100.3 msec P Vein S/D Ratio: 2.59 Tricuspid Valve TR Peak Martínez.: 3.47 m/s RAP Estimate: 10.00 mmHg TR Peak Gr.: 48.20 mmHg PA Pressure: 58.00 mmHg Left Ventricle The left ventricle is normal size. There is normal LV segmental wall motion. There is normal left ventricular wall thickness. Left ventricular systolic function is normal. The left ventricular ejection fraction is within the normal range. LVEF is 60-65%. The left ventricular diastolic function is normal. Right Ventricle The right ventricle is normal size. The right ventricular systolic function is normal. Pacemaker lead is present in the right heart. [facility] [address] [place] [id number] 2 D/M-MODE ECHOCARDIOGRAM Name: TERRELLJAMA Room #: 440-P [facility] IN ..#: [id number] Admission: 01/14/20 Attend Phys: Francois Whitehead, Discharge: Date of : 61 Report #: [id number] Left atrium is mildly dilated. Right atrium is dilated. Aortic Valve The aortic valve is normal in structure. No aortic regurgitation is present. There is no aortic valvular stenosis. Mitral Valve The mitral valve is normal in structure. Trace mitral regurgitation. No evidence of mitral valve stenosis. Tricuspid Valve The tricuspid valve is normal in structure. Moderate to severe tricuspid regurgitation. Pulmonary artery pressure is 58 mmHg. Pulmonic Valve The pulmonary valve is normal in structure. Mild pulmonic regurgitation. Great Vessels The aortic root is normal in size. The ascending aorta is normal in size. IVC is normal in size and collapses <50% with inspiration. Pericardium There is no pericardial effusion. <Conclusion> The left ventricle is normal size. LVEF is 60-65%. The left ventricular diastolic function is normal. The right ventricle is normal size. Left atrium is mildly dilated. Right atrium is dilated. The aortic valve is normal in structure. Pacemaker lead is present in the right heart. Trace mitral regurgitation. Moderate to severe tricuspid regurgitation. Pulmonary artery pressure is 58 mmHg. The aortic root is normal in size. There is no pericardial effusion. <ELECTRONICALLY SIGNED> By: Kelvin Patel MD, FACC 01/20/20 0835 Kelvin Patel MD, FACC /INF
--- NOTE | 2020-01-20 13:05 | EKG ---
[facility] [address] ELECTROCARDIOGRAM REPORT Name: NIDHIJAMA A Room #: 440-P ADM IN M.R.#: [id number] Admission: 01/14/20 Attend Phys: Francois Whitehead MD Discharge: Date of : 61 Report #: [id number] THIS REPORT FOR: cc: Shaheen Pinzon MD, Srinath MD Couchonnal,Porfirio Main MD ~ THIS REPORT FOR: //name// [facility] Test Date: 2020-01-19 Test Time: 10:06:01 Pat Name: JAMA TERRELL Department: Room: 440 P Gender: F Herb Counselor: Farnaz DEAN : 1965 Requested By: Raad Andrew Order Number: [id number] MD: Porfirio Wilder Measurements Intervals [place] Rate: 60 P: -19 MN: 236 QRS: 69 QRSD: 91 T: 128 QT: 425 QTc: 425 Interpretive Statements Sinus rhythm Prolonged MN interval Abnormal R-wave progression, late transition Nonspecific T abnormalities, lateral leads Compared to ECG 12/23/2018 09:49:55 T-wave abnormality now present Sinus tachycardia no longer present ST (T wave) deviation no longer present Electronically Signed On 01-20-2020 13:04:04 CDT by Porfirio Wilder [email or web address] <ELECTRONICALLY SIGNED> By: Porfirio Wilder MD 01/20/20 1304 05 1006 Porfirio Wilder MD /EPI
[2020-01-20 15:10] VITALS: BP 111/53
--- NOTE | 2020-01-20 15:50 | NUR ---
PATIENT A&O TO SELF, VSS, PAIN IN BUTTOCKS. PATIENT TURNED OFTEN. IV REMAINS INTACT. ZGAURD PLACED TO BILAT BUTTOCKS. PATIENT TOLERATING DIET. NO SIGNS OF DISTRESS. DOCTOR AWARE OF POTASSIUM LEVEL, PATIENT WILL HAVE DIALYSIS TUESDAY. WILL CONTINUE TO MONITOR.
[2020-01-20 18:22] LABS: CALCIUM 10.4 mg/dL (8.5-10.1); CREATININE 5.2 mg/dL (0.6-1.0)
[2020-01-20 18:29] LABS: POTASSIUM 6.5 mmol/L (3.5-5.1)
[2020-01-20 21:00] VITALS: BP 118/60
--- NOTE | 2020-01-21 03:10 | NUR ---
PT CARE ASSUMED WITH PT IN BED WATCHING TV.PT IS A/O X2.PT IS FORGETFUL AND CONFUSED.LUNGS ARE COARSED.PT IS ON DIALYSIS WITH AV FISTULA .PT IS FOR DIALYSIS TUESDAY,TUESDAY AND TUESDAY.PT POTASSIUM 6.5 YESTERDAY AND DOCTOR INFORMED BUT SAID OK SINCE SHE IS ON DIALYSIS FOR TODAY.PT IS INCONTINENT.PT C/O PAIN AND PAIN MANAGED WITH HYDROCODONE.WILL CONTINUE TO MONITOR PER POC
[2020-01-21 05:29] VITALS: BP 118/62
[2020-01-21 07:06] VITALS: BP 114/60
--- NOTE | 2020-01-21 10:17 | NUR ---
PT CARE ASSUMED AT 0700. A&Ox4 BUT VERY FORGETFUL. PT GOOD TO DC TO [facility] SOON ID CLEARS HER. RENAL DIET WITH SUPPLEMENTS. IV PATENT WITH NO REDNESS OR EDEMA SALINE LOCKED. FISTULA ACCESS R. UPPER ARM. DIALYSIS TODAY. MO,TUE, TUE. Q2 TURNS. FALL PROTOCOL IN PLACE. CALL LIGHT IN REACH.
[2020-01-21 10:55] VITALS: BP 105/60
[2020-01-21 13:15] VITALS: BP 114/60
--- NOTE | 2020-01-21 13:18 | HC ---
[facility] [place] [address] CONSULTATION Name: NIDHIJAMA Deidre Room #: 440-P ADM IN M.R.#: [id number] Admission: 01/14/20 Attend Phys: Francois Whitehead MD Discharge: Date of : 61 Report #: [id number] THIS REPORT FOR: cc: Shaheen Pinzon MD,Shaheen Andrew,Raad Peters MD ~ CC: Francois Pinzon DATE OF SERVICE: 01/18/2020 INFECTIOUS DISEASE CONSULTATION REASON FOR CONSULTATION: I was asked to evaluate concerning staphylococcal bacteremia. HISTORY OF PRESENT ILLNESS: The patient is a 54-year-old senior living resident, end-stage renal disease, sarcoidosis, severe pulmonary hypertension and underlying dementia, who complained of shortness of breath, cough, fever. Was to go to dialysis, but was diverted to the Emergency Room for further evaluation. COVID testing was negative. She had bilateral pulmonary infiltrates seen on chest x-ray. She has had resolution of her fever. Blood cultures were drawn and now showing Staphylococcus hominis; methicillin-susceptible from both blood cultures drawn. She had been placed on vancomycin and Levaquin, and has shown some improvement, although the patient is demented and is unable to give fully accurate details. She denies any cough or sputum production at this time. Complains of abdominal pain, although that was not an issue leading up to her admission. She has had no diarrhea. There has been no vomiting. Appetite has been poor. She is currently undergoing dialysis via right upper arm AV fistula. Denies any chest pain. No headache, pharyngitis symptoms. She has noticed a painful rash to her sacral region. A 14-point review of system was negative other than what has been described above. It is noted that she does have a permanent pacemaker in place. ALLERGIES: CEFEPIME, reaction not known. MEDICATIONS: As noted on her MAR, now including prednisone, vancomycin and Levaquin. PAST MEDICAL HISTORY: End-stage renal disease, paroxysmal atrial fibrillation, permanent pacemaker, cardiomyopathy, gastroesophageal reflux, peptic ulcer disease, anemia, sarcoidosis, hypothyroidism, hypertension, hyperlipidemia, metabolic encephalopathy. FAMILY HISTORY: No report of tuberculosis. [facility] [address] [place] [address] CONSULTATION Name: JAMA TERRELL Deidre Room #: 440-P [facility] IN ..#: [id number] Admission: 01/14/20 Attend Phys: Francois Whitehead MD Discharge: Date of : 61 Report #: [id number] SOCIAL HISTORY: Nonsmoker, no significant alcohol intake at this point. No reported HIV, tuberculosis or fungal infections. PHYSICAL EXAMINATION: VITAL SIGNS: She is afebrile and hemodynamically stable. GENERAL: She is lying in bed, in no acute distress, did complain of some lower abdominal pain on the left. SKIN: With vesicular rash to the perianal region and buttock. No palpable adenopathy. EYES: Without scleral icterus. MOUTH: Without mucositis. NECK: Supple. LUNGS: Few crackles heard in the posterior chest, mostly in the bases. No consolidation. HEART: Regular without appreciable murmur, gallop or rub. Left chest, permanent pacemaker pocket was without swelling or erythema. ABDOMEN: Soft, tender in the left [id number] quadrant. No guarding or rebound noted. No masses appreciated. No hepatosplenomegaly evident. GENITORECTAL: Not performed. EXTREMITIES: Without clubbing, cyanosis or edema. NEUROLOGIC: Cranial nerves intact. PSYCHIATRIC: She is overall weak, but symmetric. Sensation in her toes normal to touch. Mood was without anxiety or depression. LABORATORY STUDIES: Reviewed. Microbiology reviewed. Chest x-ray reviewed. IMPRESSION: A 54-year-old on prednisone for sarcoidosis and has end-stage renal disease with underlying cardiomyopathy, presents with fever, cough, findings of Staphylococcus hominis bacteremia and chest x-ray showing bilateral infiltrates. Source of her bacteremia is yet indeterminate. Would be concerned about endocarditis versus right upper extremity AV fistula site infection, although there was no aneurysm or tenderness on today's examination. Occult bacteremia also considered. Pneumonia seems less likely with this organism. 1. Abdominal pain is indeterminate. 2. Sacral lesions consistent with herpes simplex. 3. Allergy to CEFEPIME, reaction not known. 4. Sarcoidosis, on treatment. 5. Underlying dementia. 6. Pulmonary hypertension. RECOMMENDATIONS: We will continue IV antibiotic therapy with vancomycin and Levaquin, noting the patient has intolerance to cefepime. Repeat her blood cultures. Check echocardiogram to further evaluate her valves and permanent pacemaker and leads. Follow up chest x-ray after dialysis today, start [address] [address] CONSULTATION Name: JAMA TERRELL Room #: 440-P [facility] IN M.R.#: [id number] Admission: 01/14/20 Attend Phys: Francois Whtiehead MD Discharge: Date of : 61 Report #: [id number] for her suspected recurrent herpetic lesions to her perianal region. May need to check CT scan of the abdomen and pelvis if her abdominal symptoms persist. <ELECTRONICALLY SIGNED> By: Raad Andrew MD 01/21/20 1318 1349 1415 Raad Andrew MD /nt
[2020-01-21] MEDS ORDERED: VALTREX 500 MG500 MG PO (13:25)
[2020-01-21] MEDS ORDERED: KEFLEX500 M1 PO (13:25)
[2020-01-21] MEDS ORDERED: CEFAZOLIN1 GM/50 ML IV (13:27)
--- NOTE | 2020-01-21 13:38 | NUR ---
WOUND CONSULT; THIS PATIENT DISCHARGE IS LIKELY TODAY. THE PATIENT IS INCONTINENT OF URINE. THESE AREAS PRESENT ON ADMISSION ARE 50% BETTER TODAY. WE WILL CONTINUE CURRENT TREATMENT. DISCUSSED WITH JASON
--- NOTE | 2020-01-21 15:49 | NUR ---
CARE TEAM INDICATED THAT PT IS MEDICALLY STABLE TO DISCHARGE BACK TO LTC AT [facility] THIS DAY. CHART COPY ORDERED. ORDERS TO BE FAXED STRETCHER VAN TRANSPORT TO BE ARRANGED BETWEEN [phone]. DTR NOTIFIED. CM FAXED ORDERS TO [facility] FOR PT'S IV ABX POST DIALYSIS. CM TO CALL TO CONFIRM RECIEPT. NO OTHER CM INTERVENTION INDICATED. CASE CLOSED.
--- NOTE | 2020-01-23 07:10 | HC ---
[facility] [place] [address] CONSULTATION Name: JAMA TERRELL Deidre Room #: 440-P [facility] IN M.R.#: [id number] Admission: 01/14/20 Attend Phys: Francois Whitehead MD Discharge: 01/21/20 Date of : 61 Report #: [id number] THIS REPORT FOR: cc: Shaheen Pinzon MD, Srinath MD Al-Absi,Sumit Redman MD ~ CC: Francois Pinzon DATE OF SERVICE: 01/15/2020 REASON FOR CONSULTATION: End-stage renal disease. REASON FOR PRESENTATION: Sent from her nursing facility. HISTORY OF PRESENT ILLNESS: This is obtained from the medical chart. The patient has advanced dementia and is really confused about her presentation. She was sent from her nursing facility and that is [facility] because she had fever and cough and her dialysis unit refused to dialyze her until she is ruled out for COVID-19 infection. The patient has been maintained on hemodialysis for some time. She does not really know how long had that been. I had evaluated this patient back in December 2018 and at that time, her creatinine was actually 1.5. It is not clear to me when was the patient was started back on dialysis. When the patient presented to the Emergency Room yesterday, she was found to have a sodium of 131, potassium of 6.6, BUN of 66 and a creatinine of 6.2. I was asked to assist with the management of her end-stage renal disease. PAST MEDICAL HISTORY: From the medical chart, 1. End-stage renal disease. 2. Right-sided AV graft. 3. Severe sarcoidosis with pulmonary hypertension. 4. Dementia. 5. Failure to thrive. 6. Hypertension. 7. Cardiomyopathy. 8. Peptic ulcer disease with history of anemia and GI bleeding. PAST SURGICAL HISTORY: Right-sided AV graft. ALLERGIES: CEFEPIME. FAMILY HISTORY: Unobtainable given the patient's current mental status and dementia. MEDICATIONS: [facility] [address] [place] [address] CONSULTATION Name: JAMA TERRELL Room #: 440-P [facility] IN M.R.#: [id number] Admission: 01/14/20 Attend Phys: Francois Whitehead MD Discharge: 01/21/20 Date of : 61 Report #: [id number] 1. Albuterol. 2. Carvedilol. 3. Mirtazapine. 4. Famotidine. 5. Prednisone. 6. Folic acid. SOCIAL HISTORY: She resides in a nursing facility. REVIEW OF SYSTEMS: Unobtainable given her current mental status. PHYSICAL EXAMINATION: GENERAL: She is confused. VITAL SIGNS: Temperature 36.6, pulse rate is 60, respiratory rate is 20, and blood pressure is 137/68. HEAD AND NECK: No jugular venous distention. CHEST: No crackles. CARDIOVASCULAR: No rub detected. ABDOMEN: Soft, nontender. EXTREMITIES: Lower extremities, no edema. Upper extremities: Right AV graft. LABORATORY VALUES: Hemoglobin is 10.9, sodium is 131, potassium 6.6, chloride is 101, BUN 66, creatinine 6.2. ASSESSMENT, IMPRESSION AND PLAN: 1. End-stage renal disease. 2. Bilateral pulmonary infiltrates. This is associated with cough and fever at the nursing facility. She is being ruled out for COVID-19 infection. 3. Hyperkalemia. 4. Dementia. 5. Failure to thrive. 6. We will arrange for the patient to have her usual dialysis treatment today. She will need to be dialyzed tomorrow. 7. Ruling out COVID-19. 8. Appropriate treatment for her ongoing pulmonary issues as per the primary team including treating her for pneumonia. 9. Resume her home medications. 10. We will continue to follow. <ELECTRONICALLY SIGNED> By: Sumit Larose MD 01/23/20 0710 0826 0844 Sumit Larose MD /nt
== END 2020-01-21 16:23 | DRG 871 ==
LOC: ER 15:53 → 3W 17:02 → EROBS 17:02 → 3W 19:39 → 4S 01-15 20:50
PROVIDERS: Hospitalist; Nurse Practitioner Family; ADMIT Internal Medicine
PROC: 5A1D70Z Performance of Urinary Filtration, Intermittent, Less than 6 Hours Per Day (ICD-10-PCS; principal; 2020-01-15)
PROC: 5A1D70Z Performance of Urinary Filtration, Intermittent, Less than 6 Hours Per Day (ICD-10-PCS; 2020-01-16)
PROC: 5A1D70Z Performance of Urinary Filtration, Intermittent, Less than 6 Hours Per Day (ICD-10-PCS; 2020-01-18)
PROC: 5A1D70Z Performance of Urinary Filtration, Intermittent, Less than 6 Hours Per Day (ICD-10-PCS; 2020-01-21)
DX: A41.1 Sepsis due to other specified staphylococcus (principal); N18.6 End stage renal disease; G93.41 Metabolic encephalopathy; J15.29 Pneumonia due to other staphylococcus; I42.5 Other restrictive cardiomyopathy; I50.42 Chronic combined systolic (congestive) and diastolic (congestive) heart failure; I13.2 Hypertensive heart and chronic kidney disease with heart failure and with stage 5 chronic kidney disease, or end stage renal disease; E87.5 Hyperkalemia; R91.8 Other nonspecific abnormal finding of lung field; I48.0 Paroxysmal atrial fibrillation; K21.9 Gastro-esophageal reflux disease without esophagitis; E03.9 Hypothyroidism, unspecified; E78.5 Hyperlipidemia, unspecified; F32.9 Major depressive disorder, single episode, unspecified; D86.9 Sarcoidosis, unspecified; A60.1 Herpesviral infection of perianal skin and rectum; Z20.828 Contact with and (suspected) exposure to other viral communicable diseases; I27.20 Pulmonary hypertension, unspecified; F03.90 Unspecified dementia, unspecified severity, without behavioral disturbance, psychotic disturbance, mood disturbance, and anxiety; R62.7 Adult failure to thrive; Z68.20 Body mass index [BMI] 20.0-20.9, adult; Z79.899 Other long term (current) drug therapy; Z99.2 Dependence on renal dialysis; Z91.15 Patient's noncompliance with renal dialysis; Z79.51 Long term (current) use of inhaled steroids; Z88.1 Allergy status to other antibiotic agents; Z72.89 Other problems related to lifestyle; Z95.828 Presence of other vascular implants and grafts
CPT/HCPCS: 10102; 10879; 32100

== ENCOUNTER 2020-08-21 15:58 | Emergency (ER) | payer OTHER ==
[~2020-08-21] VITALS: Ht 157.5 cm; Wt 54.4 kg
[~2020-08-21 15:58] MED LIST changes: +CEFAZOLIN1 GM/50 ML IV; +KEFLEX500 M1 PO
[2020-08-21 18:00] LABS: BASOPHILS 0.9 % (0.0-2.0); EOSINOPHILS 2.1 % (0.0-3.0); HEMATOCRIT 32.9 % (37.0-47.0); HEMOGLOBIN 10.4 gm/dL (12.0-15.0); MCH 29.9 pg (26.0-34.0); MCHC 31.7 g/dL (28.0-37.0); MCV 94.3 fL (80.0-100.0); MONOCYTES 8.8 % (1.0-8.0); PLATELET COUNT 206 thou/uL (150-400); POLYS 69.2 % (36.0-66.0); RBC 3.49 mil/uL (4.20-5.00); RDW 15.3 % (10.5-14.5); WBC 5.8 thou/uL (4.0-11.0)
[2020-08-21 18:07] LABS: CALCIUM 9.5 mg/dL (8.5-10.1); CREATININE 4.7 mg/dL (0.6-1.0); POTASSIUM 4.2 mmol/L (3.5-5.1)
[2020-08-21 18:13] LABS: ALBUMIN 2.7 g/dL (3.4-5.0); TOTAL BILIRUBIN 0.6 mg/dL (0.2-1.0)
[2020-08-21 22:15] LABS: URINE BILIRUBIN NEGATIVE (Negative); URINE BLOOD 3+ (Negative); URINE CLARITY CLOUDY; URINE COLOR YELLOW; URINE GLUCOSE-RANDOM* NEGATIVE (Negative); URINE KETONES NEGATIVE (Negative); URINE NITRITE-REFLEX NEGATIVE (Negative); URINE PROTEIN (DIPSTICK) 2+ (Negative); URINE SPECIFIC GRAVITY 1.015 (1.005-1.035); URINE UROBILINOGEN 0.2 E.U./dl (0.2-1.0)
[2020-08-21 22:17] LABS: URINE LEUKOCYTES-REFLEX 3+ (Negative)
[2020-08-21 22:21] LABS: BACTERIA-REFLEX >30 Many /HPF (None Seen)
[2020-08-21 22:22] LABS: CASTS None Seen /LPF (None Seen); SQUAMOUS 0-3 Few /LPF (0-3); URINE RBC >20 Many /HPF (0-2); URINE WBC-REFLEX >25 Many /HPF (0-5); YEAST-REFLEX Present (None Seen)
[2020-08-21 22:23] LABS: CRYSTALS None Seen /LPF (None Seen)
[2020-08-21 23:28] VITALS: BP 138/99
== END 2020-08-21 23:29 ==
LOC: ER 15:58
PROVIDERS: Emergency Medicine
DX: K59.00 Constipation, unspecified (principal); R10.32 Left lower quadrant pain; E03.9 Hypothyroidism, unspecified; I13.2 Hypertensive heart and chronic kidney disease with heart failure and with stage 5 chronic kidney disease, or end stage renal disease; N18.6 End stage renal disease; I50.9 Heart failure, unspecified; Z99.2 Dependence on renal dialysis; K21.9 Gastro-esophageal reflux disease without esophagitis; E78.5 Hyperlipidemia, unspecified; I48.91 Unspecified atrial fibrillation; Z79.2 Long term (current) use of antibiotics; Z79.899 Other long term (current) drug therapy; Z88.1 Allergy status to other antibiotic agents

== ENCOUNTER 2020-12-05 11:09 | Emergency (ER) | payer OTHER ==
[~2020-12-05] VITALS: Ht 157.5 cm; Wt 63.5 kg
[2020-12-05 14:00] VITALS: BP 128/67
== END 2020-12-05 15:26 ==
LOC: ER 11:09
DX: T82.590A Other mechanical complication of surgically created arteriovenous fistula, initial encounter (principal); I48.91 Unspecified atrial fibrillation; E03.9 Hypothyroidism, unspecified; K21.9 Gastro-esophageal reflux disease without esophagitis; I13.2 Hypertensive heart and chronic kidney disease with heart failure and with stage 5 chronic kidney disease, or end stage renal disease; N18.6 End stage renal disease; I50.9 Heart failure, unspecified; Z99.2 Dependence on renal dialysis; Z86.2 Personal history of diseases of the blood and blood-forming organs and certain disorders involving the immune mechanism; Z79.899 Other long term (current) drug therapy; Z88.8 Allergy status to other drugs, medicaments and biological substances; Z20.822 Contact with and (suspected) exposure to COVID-19